=== PATIENT | female | born 1935 | race African-American/Black ===

== ENCOUNTER 2021-07-28 19:14 | Inpatient (IN) | payer OTHER, MEDICAID ==
[~2021-07-28] VITALS: Ht 157.5 cm; Wt 56.2 kg
[2021-07-28] MEDS ORDERED: IV RINGERS,LACTATED 1000ML 1,000 ML IV ONE ×2 (19:30→20:00)
[2021-07-28] MEDS ORDERED: ACETAMINOPHEN 650 MG SUPP.RECT. PR ONE (19:30)
--- NOTE | 2021-07-28 19:40 | ED.ADGEN ---
General Adult EDM: Chief Complaint: General Complaint HPI: HPI: Patient is a 85 year old female brought in by EMS for infected chronic wound, hypertension, fevers, and altered mental status. Per EMS she was found about 1400 fever and worsening mental status. Patient is a history of Alzheimer's per the report she is normally more alert. Is also purulent drainage noted from chronic wound on her back Review of Systems: Review of Systems: All other systems within normal limits except for as noted in the HPI Current Medications: Current Medications Medications (Trade) Dose Ordered Sig/Leandra Start Time Stop Time Status Last Admin Dose Admin Acetaminophen (Tylenol Supp) 650 mg 1X ONCE 07/28/21 19:30 07/28/21 20:11 DC 07/28/21 19:40 650 MG Acetaminophen (Tylenol) 650 mg PRN Q6HRS PRN 07/28/21 22:45 Dextrose (Dextrose 50%-Water Syringe) 12.5 gm PRN Q15MIN PRN 07/28/21 23:00 Dextrose (Iv Dextrose 5%) 250 ml PRN Q15MIN PRN 07/28/21 23:00 UNV Diphenhydramine HCl (Benadryl) 25 mg 1X ONCE 07/28/21 20:30 07/28/21 20:31 DC Fentanyl Citrate (Fentanyl 2ml Vial) 50 mcg PRN Q1HR PRN 07/28/21 21:45 07/29/21 21:44 Haloperidol Lactate (Haldol Inj) 5 mg 1X ONCE 07/28/21 20:30 07/28/21 20:31 DC Heparin Sodium (Porcine) (Heparin Sodium) 5,000 unit Q8HRS 07/29/21 06:00 Insulin Glargine (Lantus Syringe) 10 unit QHS 07/28/21 21:00 Insulin Human Lispro (HumaLOG) 0-9 UNITS TIDWMEALS 07/29/21 08:00 Magnesium Sulfate/ Dextrose 100 ml @ 100 mls/hr 1X ONCE 07/28/21 23:30 07/29/21 00:29 Olanzapine (ZyPREXA ZYDIS) 5 mg PRN BID PRN 07/28/21 22:45 Ondansetron HCl (Zofran) 4 mg PRN Q4HRS PRN 07/28/21 22:45 Piperacillin Sod/ Tazobactam Sod (Zosyn Per Pharmacy) 1 each PRN DAILY PRN 07/28/21 22:45 Piperacillin Sod/ Tazobactam Sod 2.25 gm/Sodium Chloride 50 ml @ 100 mls/hr Q6HRS 07/29/21 00:00 Piperacillin Sod/ Tazobactam Sod 3.375 gm/Sodium Chloride 50 ml @ 100 mls/hr 1X ONCE 07/28/21 20:00 07/28/21 20:29 DC 07/28/21 20:39 100 MLS/HR Ringer's Solution 1,000 ml @ 100 mls/hr 1X ONCE 07/28/21 20:00 07/29/21 05:59 07/28/21 20:10 100 MLS/HR Sodium Chloride 1,000 ml @ 100 mls/hr Q10H 07/28/21 22:00 07/29/21 21:59 Vancomycin HCl (Vanco Per Pharmacy) 1 each PRN DAILY PRN 07/28/21 22:45 Vancomycin HCl 1.5 gm/Sodium Chloride 500 ml @ 250 mls/hr 1X ONCE 07/28/21 23:45 07/29/21 01:44 Allergies: Allergies: Allergies Coded Allergies Type Severity Reaction Last Updated Verified No Known Drug Allergies 07/28/21 No Physical Exam: PE: Constitutional: Well developed, well nourished, ill-appearing HENT: Normocephalic, atraumatic, bilateral external ears normal, nose normal. [] Eyes: PERRLA, conjunctiva normal, no discharge. [] Neck: No rigidity, supple, no stridor. [] Cardiovascular: Regular rate and rhythm, brisk cap refill [] Lungs & Thorax: Non labored symmetric respirations, no tachypnea or respiratory distress [] Abdomen: Soft, nondistended. Skin: Warm, dry, no erythema, no rash. Open wound on back [] Back: Unremarkable Extremities: No deformities, range of motion grossly intact, no lower extremity edema [] Neurologic: Alert and oriented X 3, no focal deficits noted. [] Psychologic: Affect normal, judgement normal, mood normal. [] Current Patient Data: Labs: Laboratory Tests Test 07/28/21 19:30 07/28/21 22:38 07/28/21 22:52 White Blood Count 9.7 x10^3/uL (4.0-11.0) Red Blood Count 3.01 x10^6/uL (3.50-5.40) L Hemoglobin 7.3 g/dL (12.0-15.5) L Hematocrit 22.6 % (36.0-47.0) L Mean Corpuscular Volume 75 fL (79-100) L Mean Corpuscular Hemoglobin 24 pg (25-35) L Mean Corpuscular Hemoglobin Concent 32 g/dL (31-37) Red Cell Distribution Width 21.7 % (11.5-14.5) H Platelet Count 408 x10^3/uL (140-400) H Neutrophils (%) (Auto) 93 % (31-73) H Lymphocytes (%) (Auto) 3 % (24-48) L Monocytes (%) (Auto) 3 % (0-9) Eosinophils (%) (Auto) 0 % (0-3) Basophils (%) (Auto) 1 % (0-3) Neutrophils # (Auto) 9.0 x10^3/uL (1.8-7.7) H Lymphocytes # (Auto) 0.3 x10^3/uL (1.0-4.8) L Monocytes # (Auto) 0.3 x10^3/uL (0.0-1.1) Eosinophils # (Auto) 0.0 x10^3/uL (0.0-0.7) Basophils # (Auto) 0.1 x10^3/uL (0.0-0.2) Segmented Neutrophils % 95 % (35-66) H Lymphocytes % 2 % (24-48) L Monocytes % 2 % (0-10) Basophils % 1 % (0-3) Platelet Estimate Increased (ADEQUATE) Hypochromasia Mod Anisocytosis Mod Schistocytes Occ Prothrombin Time 23.0 SEC (11.7-14.0) H Prothrombin Time INR 2.1 (0.8-1.1) H Urine Color Yellow Urine Clarity Cloudy Urine pH 5.0 (<5.0-8.0) Urine Specific [place] 1.015 (1.000-1.030) Urine Protein Negative mg/dL (NEG-TRACE) Urine Glucose (UA) Negative mg/dL (NEG) Urine Ketones (Stick) Negative mg/dL (NEG) Urine Blood Negative (NEG) Urine Nitrite Negative (NEG) Urine Bilirubin Negative (NEG) Urine Urobilinogen Dipstick 1.0 mg/dL (0.2 mg/dL) Urine Leukocyte Esterase Moderate (NEG) Urine RBC 0 /HPF (0-2) Urine WBC 5-10 /HPF (0-4) Urine Squamous Epithelial Cells Mod /LPF Urine Amorphous Sediment Present /HPF Urine Bacteria Few /HPF (0-FEW) Urine Hyaline Casts Moderate /HPF Urine Granular Casts Few /HPF Urine Mucus Marked /LPF Sodium Level 139 mmol/L (136-145) Potassium Level 3.7 mmol/L (3.5-5.1) Chloride Level 105 mmol/L (98-107) Carbon Dioxide Level 21 mmol/L (21-32) Anion Gap 13 (6-14) Blood Urea Nitrogen 24 mg/dL (7-20) H Creatinine 1.4 mg/dL (0.6-1.0) H Estimated GFR (Cockcroft-Gault) 43.2 BUN/Creatinine Ratio 17 (6-20) Glucose Level 171 mg/dL (70-99) H Lactic Acid Level 3.3 mmol/L (0.4-2.0) H 1.6 mmol/L (0.4-2.0) Calcium Level 8.7 mg/dL (8.5-10.1) Phosphorus Level 2.4 mg/dL (2.6-4.7) L Magnesium Level 1.7 mg/dL (1.8-2.4) L Total Bilirubin 0.7 mg/dL (0.2-1.0) Aspartate Amino Transferase (AST) 33 U/L (15-37) Alanine Aminotransferase (ALT) 18 U/L (14-59) Alkaline Phosphatase 64 U/L (46-116) C-Reactive Protein, Quantitative 115.5 mg/L (0-3.3) H OO-Smr-R-Type Natriuretic Peptide 3605 pg/mL (0-449) H Total Protein 6.0 g/dL (6.4-8.2) L Albumin 1.6 g/dL (3.4-5.0) L Albumin/Globulin Ratio 0.4 (1.0-1.7) L Lipase 55 U/L (73-393) L POC Venous pH 7.42 (7.32-7.42) POC Venous pCO2 39 mmHg (41-51) L POC Venous pO2 23 mmHg (20-40) Venous Blood HCO3 25 mmol/L (24-28) POC Venous O2 Saturation (Lewis) 43 % POC FiO2 21.0 Laboratory Tests 07/28/21 19:30 Laboratory Tests 07/28/21 19:30 EKG: EKG: [] Heart Score: C/O Chest Pain: No HEART Score for Chest Pain: HEART Score for Chest Pain Response (Comments) Value History Slighlty/Non-Suspicious 0 ECG Nonspecific Repolarizatio 1 Age > 65 2 Risk Factors 1 or 2 Risk Factors 1 Troponin < Normal Limit 0 Total 4 Risk Factors: Risk Factors: DM, Current or recent (<one month) smoker, HTN, HLP, family history of CAD, obesity. Risk Scores: Score 0 - 3: 2.5% MACE over next 6 weeks - Discharge Home Score 4 - 6: 20.3% MACE over next 6 weeks - Admit for Clinical Observation Score 7 - 10: 72.7% MACE over next 6 weeks - Early Invasive Strategies Radiology/Procedures: Radiology/Procedures: [facility] [address] [place] [address] IMAGING REPORT Signed PATIENT: MIRELLA TURNERCOUNT: [id number] : 1935 LOCATION: ER AGE: 85 SEX: F EXAM STATUS: REG ER ORD. PHYSICIAN: KACI MCKEE MD REASON: wound on back, possible osteo PROCEDURE: CT CHEST ABDOMEN PELVIS WO CT CHEST_ABDOMEN_ AND PELVIS WITHOUT CONTRAST History: Wound on back. Possible osteomyelitis. Comparison: None. Technique: Noncontrast CT of the chest, abdomen and pelvis with Findings: There is a large, heterogeneous right thyroid lobe with mass effect on the trachea and esophagus. The ascending aorta measures 4.4 cm diameter at the level of the right pulmonary artery. There is heavy aortic calcification. Cardiomegaly with heavy coronary artery calcification. No mediastinal adenopathy identified. No airspace consolidation, pleural effusion or pneumothorax. Degenerative changes of bilateral shoulders. 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 Decreased osseous mineralization in the spine. Multilevel degenerative changes. Multilevel anterior and lateral fusion of the thoracic vertebral bodies. S uggestion of fracture lucency extending to the ninth vertebral body, without fracture identified in the posterior elements. The liver is unremarkable. The gallbladder is decompressed. The pancreas, spleen and adrenal glands are unremarkable. Right upper pole renal cyst. The left kidney is either surgically absent or severely atrophic. No residual surgical clips are identified. Stomach is decompressed. No evidence of small bowel obstruction. There is a loop of transverse colon extending into a large broad-based periumbilical hernia. No evidence of obstruction. Large, 6.3 cm rectal stool ball with mild rectal wall thickening. The bladder is decompressed by Up catheter. Uterus demonstrates mild thickening of the endometrium with dense material measuring approximately 8 mm diameter. Heavy atherosclerotic calcification of the aorta and iliac arteries. Diffusely decreased osseous mineralization. Extensive degenerative changes in the lumbar spine with disc height loss, ankylosis and facet hypertrophy throughout. Postsurgical changes from L4-L5 posterior fixation. No evidence of screw loosening. Laminectomy at these levels. There is a skin defect overlying the sacrum extending posteriorly to the rectum with a tract containing air and fluid. The cavity measures approximately 1.5 x 0.9 cm diameter at the level of the coccyx by approximately 9 cm craniocaudal extensive adjacent inflammatory fat stranding. The sacrum and coccyx are extensively demineralized, however no focal erosive changes identified. There is only approximately 2-3 mm of tissue plane the cavity from the coccyx. Impression: 1. Concern for toxic fracture of the thoracic spine at the level of T9 vertebral body. Correlate for pain at this level. Thoracic MRI could provide evidence of acutely if edema is present. 2. Decubitus ulcer overlying the sacrum and coccyx tracking to the posterior perirectal area. No direct evidence of osteomyelitis is identified in the sacrum and coccyx, however is only a few millimeters of tissue plane between the decubitus ulcer collection and the outer cortex of the coccyx. 3. Large rectal stool ball measuring 6 cm diameter with mild rectal wall thickening. Correlate for stercoral colitis. 4. Large heterogeneous right thyroid lobe with mass effect on the trachea and esophagus. Recommend thyroid ultrasound for further evaluation. ------ Exposure: One or more of the following individualized dose reduction techniques were utilized for this examination: 1. Automated exposure control 2. Adjustment of the mA and/or kV according to patient size 3. Use of iterative reconstruction technique. Electronically signed by: Eric Hughes MD (07/28/2021 10:11 PM) [facility] DICTATED and SIGNED BY: ERIC HUGHES MD DATE: 07/28/21 [id number] 0 [] Course & Med Decision Making: Course & Med Decision Making Pertinent Labs and Imaging studies reviewed. (See chart for details) [] Dragon Disclaimer: Dragon Disclaimer: This electronic medical record was generated, in whole or in part, using a voice recognition dictation system. Departure Departure Impression: Primary Impression: Septic shock Additional Impression: Open wound of sacroiliac region Disposition: ADMITTED INPATIENT Admitting Physician: WALDEMAR Condition: GUARDED Problem Qualifiers KACI MCKEE MD Jul 28, 2021 19:40
[2021-07-28 19:42] LABS: BASO # 0.1 x10^3/uL (0.0-0.2); BASO % 1 % (0-3); EOS % 0 % (0-3); HEMATOCRIT 22.6 % (36.0-47.0); HEMOGLOBIN 7.3 g/dL (12.0-15.5); LYMPH # 0.3 x10^3/uL (1.0-4.8); LYMPH % 3 % (24-48); MEAN CORPUSCULAR HEMOGLOBIN 24 pg (25-35); MEAN CORPUSCULAR HGB CONC 32 g/dL (31-37); MEAN CORPUSCULAR VOLUME 75 fL (79-100); MONO # 0.3 x10^3/uL (0.0-1.1); MONO % 3 % (0-9); NEUT % 93 % (31-73); PLATELET COUNT 408 x10^3/uL (140-400); RED BLOOD COUNT 3.01 x10^6/uL (3.50-5.40); RED CELL DISTRIBUTION WIDTH 21.7 % (11.5-14.5); WHITE BLOOD COUNT 9.7 x10^3/uL (4.0-11.0)
[2021-07-28 19:45] LABS: BILIRUBIN,URINE NEGATIVE (NEG); CLARITY,URINE CLOUDY; COLOR,URINE YELLOW; NITRITE,URINE NEGATIVE (NEG); PROTEIN,URINE NEGATIVE (NEG-TRACE)
[2021-07-28 19:53] LABS: AMORPHOUS SEDIMENT,UR PRESENT /HPF; BACTERIA,URINE FEW /HPF (0-FEW); GRANULAR CASTS,URINE FEW /HPF; HYALINE CASTS, URINE MODERATE /HPF; RBC,URINE 0 /HPF (0-2)
[2021-07-28] MEDS ORDERED: PIPERACILLIN/TAZOBACTAM 3.375 GM in IV NORMAL SALINE 50ML 50 ML IV ONE (20:00)
[2021-07-28 20:04] LABS: CALCIUM 8.7 mg/dL (8.5-10.1); CREATININE 1.4 mg/dL (0.6-1.0)
[2021-07-28 20:05] LABS: POTASSIUM 3.7 mmol/L (3.5-5.1)
[2021-07-28 20:06] LABS: GFR 43.2
[2021-07-28 20:11] LABS: ALBUMIN 1.6 g/dL (3.4-5.0); ALBUMIN/GLOBULIN RATIO 0.4 (1.0-1.7); C-REACTIVE PROTEIN 115.5 mg/L (0-3.3); MAGNESIUM 1.7 mg/dL (1.8-2.4); PHOSPHORUS 2.4 mg/dL (2.6-4.7); TOTAL BILIRUBIN 0.7 mg/dL (0.2-1.0)
[2021-07-28 20:13] LABS: % BASOS 1 % (0-3); % LYMPHS 2 % (24-48); % MONOS 2 % (0-10); % SEGS 95 % (35-66)
[2021-07-28 20:14] LABS: ANISOCYTOSIS MOD; HYPOCHROMIA MOD; PLT ESTIMATE INCREASED (ADEQUATE); SCHISTOCYTES OCC
[2021-07-28] MEDS ORDERED: HALOPERIDOL LACTATE 5 MG/ML VIAL. IVP ONE (20:30)
[2021-07-28] MEDS ORDERED: diphenhydrAMINE 50 MG/ML VIAL IVP ONE (20:30)
--- NOTE | 2021-07-28 21:43 | PDOC1 ---
History and Physical Date of Admission Date of Admission DATE: 07/28/21 TIME: 21:43 Identification/Chief Complaint Chief Complaint Fevers altered mental status Source Source: Caregiver, Chart review History of Present Illness History of Present Illness Ms Martinez is an 85 year old female w/ PMHx alzheimer dementia, DM2, iron deficiency anemia, prior pulmonary embolism on eliquis who is brought into ED by EMS for fevers and altered mental status from her SNF. Patient is not verbally responsive, no history is obtained from her, it is from medical records. He does have a bowel movement during examination. Right elbow and gluteal area with open wound. Initially was not very responsive vitals low blood pressure responsive to fluid bolus started on empiric vancomycin and Zosyn by ED after cultures obtained. WBC 9.7, Hb 7.3, platelets 408, INR 2.1, NA 139, K3.7, BUN 24, CR 1.4, glucose 171, lactic acid 3.3, calcium 8.7, phosphorus 2.4, magnesium 1.7, bilirubin 0.7, AST 33, ALT 18, alkaline phosphatase 64, CRP 115.5, NT proBNP 3605, albumin 1.6, lipase 55, urinalysis with moderate leuk esterase CT chest/abdomen/pelvis with T9 fracture, decubitus ulcer over sacram and coccyx, large stool burden with possible stercoral colitis and large right thyro id lobe with mass effect. Admitted for further care. Past Medical History Cardiovascular: HTN Pulmonary: Pulmonary embolus CENTRAL NERVOUS SYSTEM: Dementia Endocrine: Diabetes Past Surgical History Past Surgical History: No pertinent history Family History Family History reviewed Family History: Family History Unknown Social History Smoke: No ALCOHOL: none Drugs: None Current Medications Current Medications Current Medications Acetaminophen (Tylenol Supp) 650 mg 1X ONCE [place] Last administered on 07/28/21at 19:40; Start 07/28/21 at 19:30; Stop 07/28/21 at 20:11; Status DC Ringer's Solution 1,000 ml @ 1,000 mls/hr 1X ONCE IV Last administered on 07/28/21at 19:25; Start 07/28/21 at 19:30; Stop 07/28/21 at 20:29; Status DC Ringer's Solution 1,000 ml @ 100 mls/hr 1X ONCE IV Last administered on 07/28/21at 20:10; Start 07/28/21 at 20:00; Stop 07/29/21 at 05:59 Vancomycin HCl 1.5 gm/Sodium Chloride 500 ml @ 250 mls/hr 1X ONCE IV ; Start 07/28/21 at 20:00; Stop 07/28/21 at 21:59; Status UNV Piperacillin Sod/ Tazobactam Sod 3.375 gm/Sodium Chloride 50 ml @ 100 mls/hr 1X ONCE IV Last administered on 07/28/21at 20:39; Start 07/28/21 at 20:00; Stop 07/28/21 at 20:29; Status DC Haloperidol Lactate (Haldol Inj) 5 mg 1X ONCE IVP ; Start 07/28/21 at 20:30; Stop 07/28/21 at 20:31; Status DC Diphenhydramine HCl (Benadryl) 25 mg 1X ONCE IVP ; Start 07/28/21 at 20:30; Stop 07/28/21 at 20:31; Status DC Allergies Allergies: Coded Allergies: No Known Drug Allergies (Unverified , 07/28/21) ROS Review of System Unable to obtain, not verbally responsive Physical Exam General: Cooperative, mild distress HEENT: Atraumatic, PERRLA, EOMI, Mucous membr. moist/pink Lungs: Clear to auscultation, Normal air movement Heart: S1S2, RRR, no thrills, no rubs, no gallops, no murmurs Abdomen: Normal bowel sounds, Soft, No tenderness, No hepatosplenomegaly, No masses Rectal Exam: other (Large stool in vault) Skin: Other (right elbow, bilateral heels and gluteal ulcers) Neuro: Reflexes 2+ Psych/Mental Status: Other (Not verbally responsive) Labs Labs Laboratory Tests Test 07/28/21 19:30 White Blood Count 9.7 x10^3/uL (4.0-11.0) Red Blood Count 3.01 x10^6/uL (3.50-5.40) Hemoglobin 7.3 g/dL (12.0-15.5) Hematocrit 22.6 % (36.0-47.0) Mean Corpuscular Volume 75 fL (79-100) Mean Corpuscular Hemoglobin 24 pg (25-35) Mean Corpuscular Hemoglobin Concent 32 g/dL (31-37) Red Cell Distribution Width 21.7 % (11.5-14.5) Platelet Count 408 x10^3/uL (140-400) Neutrophils (%) (Auto) 93 % (31-73) Lymphocytes (%) (Auto) 3 % (24-48) Monocytes (%) (Auto) 3 % (0-9) Eosinophils (%) (Auto) 0 % (0-3) Basophils (%) (Auto) 1 % (0-3) Neutrophils # (Auto) 9.0 x10^3/uL (1.8-7.7) Lymphocytes # (Auto) 0.3 x10^3/uL (1.0-4.8) Monocytes # (Auto) 0.3 x10^3/uL (0.0-1.1) Eosinophils # (Auto) 0.0 x10^3/uL (0.0-0.7) Basophils # (Auto) 0.1 x10^3/uL (0.0-0.2) Segmented Neutrophils % 95 % (35-66) Lymphocytes % 2 % (24-48) Monocytes % 2 % (0-10) Basophils % 1 % (0-3) Platelet Estimate Increased (ADEQUATE) Hypochromasia Mod Anisocytosis Mod Schistocytes Occ Prothrombin Time 23.0 SEC (11.7-14.0) Prothromb Time International Ratio 2.1 (0.8-1.1) Urine Color Yellow Urine Clarity Cloudy Urine pH 5.0 (<5.0-8.0) Urine Specific [place] 1.015 (1.000-1.030) Urine Protein Negative mg/dL (NEG-TRACE) Urine Glucose (UA) Negative mg/dL (NEG) Urine Ketones (Stick) Negative mg/dL (NEG) Urine Blood Negative (NEG) Urine Nitrite Negative (NEG) Urine Bilirubin Negative (NEG) Urine Urobilinogen Dipstick 1.0 mg/dL (0.2 mg/dL) Urine Leukocyte Esterase Moderate (NEG) Urine RBC 0 /HPF (0-2) Urine WBC 5-10 /HPF (0-4) Urine Squamous Epithelial Cells Mod /LPF Urine Amorphous Sediment Present /HPF Urine Bacteria Few /HPF (0-FEW) Urine Hyaline Casts Moderate /HPF Urine Granular Casts Few /HPF Urine Mucus Marked /LPF Sodium Level 139 mmol/L (136-145) Potassium Level 3.7 mmol/L (3.5-5.1) Chloride Level 105 mmol/L (98-107) Carbon Dioxide Level 21 mmol/L (21-32) Anion Gap 13 (6-14) Blood Urea Nitrogen 24 mg/dL (7-20) Creatinine 1.4 mg/dL (0.6-1.0) Estimated GFR (Cockcroft-Gault) 43.2 BUN/Creatinine Ratio 17 (6-20) Glucose Level 171 mg/dL (70-99) Lactic Acid Level 3.3 mmol/L (0.4-2.0) Calcium Level 8.7 mg/dL (8.5-10.1) Phosphorus Level 2.4 mg/dL (2.6-4.7) Magnesium Level 1.7 mg/dL (1.8-2.4) Total Bilirubin 0.7 mg/dL (0.2-1.0) Aspartate Amino Transf (AST/SGOT) 33 U/L (15-37) Alanine Aminotransferase (ALT/SGPT) 18 U/L (14-59) Alkaline Phosphatase 64 U/L (46-116) C-Reactive Protein, Quantitative 115.5 mg/L (0-3.3) MC-Vvu-J-Type Natriuretic Peptide 3605 pg/mL (0-449) Total Protein 6.0 g/dL (6.4-8.2) Albumin 1.6 g/dL (3.4-5.0) Albumin/Globulin Ratio 0.4 (1.0-1.7) Lipase 55 U/L (73-393) Laboratory Tests Test 07/28/21 19:30 White Blood Count 9.7 x10^3/uL (4.0-11.0) Red Blood Count 3.01 x10^6/uL (3.50-5.40) Hemoglobin 7.3 g/dL (12.0-15.5) Hematocrit 22.6 % (36.0-47.0) Mean Corpuscular Volume 75 fL (79-100) Mean Corpuscular Hemoglobin 24 pg (25-35) Mean Corpuscular Hemoglobin Concent 32 g/dL (31-37) Red Cell Distribution Width 21.7 % (11.5-14.5) Platelet Count 408 x10^3/uL (140-400) Neutrophils (%) (Auto) 93 % (31-73) Lymphocytes (%) (Auto) 3 % (24-48) Monocytes (%) (Auto) 3 % (0-9) Eosinophils (%) (Auto) 0 % (0-3) Basophils (%) (Auto) 1 % (0-3) Neutrophils # (Auto) 9.0 x10^3/uL (1.8-7.7) Lymphocytes # (Auto) 0.3 x10^3/uL (1.0-4.8) Monocytes # (Auto) 0.3 x10^3/uL (0.0-1.1) Eosinophils # (Auto) 0.0 x10^3/uL (0.0-0.7) Basophils # (Auto) 0.1 x10^3/uL (0.0-0.2) Segmented Neutrophils % 95 % (35-66) Lymphocytes % 2 % (24-48) Monocytes % 2 % (0-10) Basophils % 1 % (0-3) Platelet Estimate Increased (ADEQUATE) Hypochromasia Mod Anisocytosis Mod Schistocytes Occ Prothrombin Time 23.0 SEC (11.7-14.0) Prothromb Time International Ratio 2.1 (0.8-1.1) Urine Color Yellow Urine Clarity Cloudy Urine pH 5.0 (<5.0-8.0) Urine Specific [place] 1.015 (1.000-1.030) Urine Protein Negative mg/dL (NEG-TRACE) Urine Glucose (UA) Negative mg/dL (NEG) Urine Ketones (Stick) Negative mg/dL (NEG) Urine Blood Negative (NEG) Urine Nitrite Negative (NEG) Urine Bilirubin Negative (NEG) Urine Urobilinogen Dipstick 1.0 mg/dL (0.2 mg/dL) Urine Leukocyte Esterase Moderate (NEG) Urine RBC 0 /HPF (0-2) Urine WBC 5-10 /HPF (0-4) Urine Squamous Epithelial Cells Mod /LPF Urine Amorphous Sediment Present /HPF Urine Bacteria Few /HPF (0-FEW) Urine Hyaline Casts Moderate /HPF Urine Granular Casts Few /HPF Urine Mucus Marked /LPF Sodium Level 139 mmol/L (136-145) Potassium Level 3.7 mmol/L (3.5-5.1) Chloride Level 105 mmol/L (98-107) Carbon Dioxide Level 21 mmol/L (21-32) Anion Gap 13 (6-14) Blood Urea Nitrogen 24 mg/dL (7-20) Creatinine 1.4 mg/dL (0.6-1.0) Estimated GFR (Cockcroft-Gault) 43.2 BUN/Creatinine Ratio 17 (6-20) Glucose Level 171 mg/dL (70-99) Lactic Acid Level 3.3 mmol/L (0.4-2.0) Calcium Level 8.7 mg/dL (8.5-10.1) Phosphorus Level 2.4 mg/dL (2.6-4.7) Magnesium Level 1.7 mg/dL (1.8-2.4) Total Bilirubin 0.7 mg/dL (0.2-1.0) Aspartate Amino Transf (AST/SGOT) 33 U/L (15-37) Alanine Aminotransferase (ALT/SGPT) 18 U/L (14-59) Alkaline Phosphatase 64 U/L (46-116) C-Reactive Protein, Quantitative 115.5 mg/L (0-3.3) UW-Zsz-[id number]-Type Natriuretic Peptide 3605 pg/mL (0-449) Total Protein 6.0 g/dL (6.4-8.2) Albumin 1.6 g/dL (3.4-5.0) Albumin/Globulin Ratio 0.4 (1.0-1.7) Lipase 55 U/L (73-393) Images Images CT CHEST ABDOMEN PELVIS WO CT CHEST_ABDOMEN_ AND PELVIS WITHOUT CONTRAST History: Wound on back. Possible osteomyelitis. Comparison: None. Technique: Noncontrast CT of the chest, abdomen and pelvis with Findings: There is a large, heterogeneous right thyroid lobe with mass effect on the trachea and esophagus. The ascending aorta measures 4.4 cm diameter at the level of the right pulmonary artery. There is heavy aortic calcification. Cardiomegaly with heavy coronary artery calcification. No mediastinal adenopathy identified. No airspace consolidation, pleural effusion or pneumothorax. Degenerative changes of bilateral shoulders. 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 Decreased osseous mineralization in the spine. Multilevel degenerative changes. Multilevel anterior and lateral fusion of the thoracic vertebral bodies. Suggestion of fracture lucency extending to the ninth vertebral body, without fracture identified in the posterior elements. The liver is unremarkable. The gallbladder is decompressed. The pancreas, spleen and adrenal glands are unremarkable. Right upper pole renal cyst. The left kidney is either surgically absent or severely atrophic. No residual surgical clips are identified. Stomach is decompressed. No evidence of small bowel obstruction. There is a loop of transverse colon extending into a large broad-based periumbilical hernia. No evidence of obstruction. Large, 6.3 cm rectal stool ball with mild rectal wall thickening. The bladder is decompressed by Up catheter. Uterus demonstrates mild thickening of the endometrium with dense material measuring approximately 8 mm diameter. Heavy atherosclerotic calcification of the aorta and iliac arteries. Diffusely decreased osseous mineralization. Extensive degenerative changes in the lumbar spine with disc height loss, ankylosis and facet hypertrophy throughout. Postsurgical changes from L4-L5 posterior fixation. No evidence of screw loosening. Laminectomy at these levels. There is a skin defect overlying the sacrum extending posteriorly to the rectum with a tract containing air and fluid. The cavity measures approximately 1.5 x 0.9 cm diameter at the level of the coccyx by approximately 9 cm craniocaudal extensive adjacent inflammatory fat stranding. The sacrum and coccyx are extensively demineralized, however no focal erosive changes identified. There is only approximately 2-3 mm of tissue plane the cavity from the coccyx. Impression: 1. Concern for toxic fracture of the thoracic spine at the level of T9 vertebral body. Correlate for pain at this level. Thoracic MRI could provide evidence of acutely if edema is present. 2. Decubitus ulcer overlying the sacrum and coccyx tracking to the posterior perirectal area. No direct evidence of osteomyelitis is identified in the sacrum and coccyx, however is only a few millimeters of tissue plane between the decubitus ulcer collection and the outer cortex of the coccyx. 3. Large rectal stool ball measuring 6 cm diameter with mild rectal wall thickening. Correlate for stercoral colitis. 4. Large heterogeneous right thyroid lobe with mass effect on the trachea and esophagus. Recommend thyroid ultrasound for further evaluation. VTE Prophylaxis Ordered VTE Prophylaxis Devices: No VTE Pharmacological Prophylaxi: Yes Assessment/Plan Assessment/Plan Acute encephalopathy - likely metabolic due to hypotension, shock from sepsis. Will monitor BP, fluids, antibiotics Sepsis - likely from UTI and gluteal ulcer. Empiric antibiotics with vancomycin and zosyn Alzheimer dementia - on aricept, will hold for confusion DM2 - lantus 10u qhs + sliding scale Iron deficiency anemia - on replacement therapy Prior pulmonary embolism - per SNF records - on eliquis CHELSY vs CKD - CR 1.4, will monitor T9 vertebral body fracture - will have PMR assessment Constipation - with Large rectal stool ball measuring 6 cm diameter with mild rectal wall thickening. digitally examined and partially disimpacted Heterogeneous right thyroid lobe - mass effect on the trachea and esophagus. Will obtain US Sacral decubitus ulcer - having wound care at SNF, will have wound care to see, is unstageable, has stool during examination Right elbow ulcer - superficial, local wound care Bilateral heel ulcers - superficial, have wound care to see FEN - ADA diet PPX - heparin for eliquis until mental status improves for swallowing evaluation FULL CODE Dispo - inpatient for above Justifications for Admission Other Justification ADRIANNA DORANTES MD Jul 28, 2021 21:43
[2021-07-28] MEDS ORDERED: ONDANSETRON PF 4 MG/2 ML VIAL. IVP PRN ×2 (21:45→22:45)
[2021-07-28] MEDS ORDERED: fentaNYL PF VIAL 100 MCG/2 ML VIAL IVP PRN (21:45)
[2021-07-28] MEDS ORDERED: ACETAMINOPHEN 325 MG TABLET. PO PRN ×2 (21:45→22:45)
--- NOTE | 2021-07-28 22:14 | RAD ---
CT CHEST_ABDOMEN_ AND PELVIS WITHOUT CONTRAST History: Wound on back. Possible osteomyelitis. Comparison: None. Technique: Noncontrast CT of the chest, abdomen and pelvis with Findings: There is a large, heterogeneous right thyroid lobe with mass effect on the trachea and esophagus. The ascending aorta measures 4.4 cm diameter at the level of the right pulmonary artery. There is heavy aortic calcification. Cardiomegaly with heavy coronary artery calcification. No mediastinal adenopath y identified. No airspace consolidation, pleural effusion or pneumothorax. Degenerative changes of bi lateral shoulders. 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 Decreased osseous mineralization in the spine. Multi level degenerative changes. Multilevel anterior and lateral fusion of the thoracic vertebral bodies. Suggestion of fracture lucency extending to the ninth vertebral body, without fracture identified in the posterior elements. The liver is unremarkable. The gallbladder is decompressed. The pancreas, spleen and adrenal glands a re unremarkable. Right upper pole renal cyst. The left kidney is either surgically absent or severely atrophic. No residual surgical clips are identified. Stomach is decompressed. No evidence of small bowel obstruction. There is a loop of transverse colon extending into a large broad-based periumbilical hernia. No evidence of obstruction. Large, 6.3 cm re ctal stool ball with mild rectal wall thickening. The bladder is decompressed by Up catheter. Uterus demonstrates mild thickening of the endometrium with dense material measuring approximately 8 mm diameter. Heavy atherosclerotic calcification of th e aorta and iliac arteries. Diffusely decreased osseous mineralization. Extensive degenerative changes in the lumbar spine with d isc height loss, ankylosis and facet hypertrophy throughout. Postsurgical changes from L4-L5 posterio r fixation. No evidence of screw loosening. Laminectomy at these levels. There is a skin defect overlying the sacrum extending posteriorly to the rectum with a tract containi ng air and fluid. The cavity measures approximately 1.5 x 0.9 cm diameter at the level of the coccyx by approximately 9 cm craniocaudal extensive adjacent inflammatory fat stranding. The sacrum and cocc yx are extensively demineralized, however no focal erosive changes identified. There is only approxim ately 2-3 mm of tissue plane the cavity from the coccyx. Impression: 1. Concern for toxic fracture of the thoracic spine at the level of T9 vertebral body. Correlate for pain at this level. Thoracic MRI could provide evidence of acutely if edema is present. 2. Decubitus ulcer overlying the sacrum and coccyx tracking to the posterior perirectal area. No dir ect evidence of osteomyelitis is identified in the sacrum and coccyx, however is only a few millimete rs of tissue plane between the decubitus ulcer collection and the outer cortex of the coccyx. 3. Large rectal stool ball measuring 6 cm diameter with mild rectal wall thickening. Correlate for s tercoral colitis. 4. Large heterogeneous right thyroid lobe with mass effect on the trachea and esophagus. Recommend t hyroid ultrasound for further evaluation. ------ Exposure: One or more of the following individualized dose reduction techniques were utilized for thi s examination: 1. Automated exposure control 2. Adjustment of the mA and/or kV according to patient size 3. Use of iterative reconstruction technique. Electronically signed by: Eric Gill MD (07/28/2021 10:11 PM) [facility]
[2021-07-28] MEDS ORDERED: PIP/TAZO PER PHARMACY MC PRN (22:45)
[2021-07-28 22:58] LABS: ISTAT BE VENOUS 1 mmol/L (0-3); ISTAT HCO3 VEN 25 mmol/L (24-28); ISTAT PCO2 VEN 39 mmHg (41-51); ISTAT PH VEN 7.42 (7.32-7.42); ISTAT PO2 VEN 23 mmHg (20-40); ISTAT SAT O2 VEN 43 %; ISTAT TCO2 VEN 26 mmol/L (21-32)
[2021-07-28] MEDS ORDERED: IV DEXTROSE 5% 250 ML BAG. IV PRN (23:00)
[2021-07-28] MEDS ORDERED: DEXTROSE 50% 25 GM / 50ML DISP.SYRIN. IV PRN (23:00)
[2021-07-28] MEDS ORDERED: MAGNESIUM SULFATE 1GM 100 ML IV ONE (23:30)
[2021-07-28] MEDS ORDERED: VANCOMYCIN 1.5 GM in IV NORMAL SALINE 500ML BAG 500 ML IV ONE (23:45)
[2021-07-29] VITALS (17 sets, daily range): BP systolic 94–126; BP diastolic 37–72
[2021-07-29] MEDS: INSULIN GLARGINE SYRINGE. SQ SCH ×2 (00:06→20:33)
[2021-07-29] MEDS: VANCOMYCIN PER PHARMACY MC PRN (03:51)
--- NOTE | 2021-07-29 03:53 | NUR ---
Pharmacy Vancomycin Dosing Note S:Consulted to monitor and dose vancomycin started 07/28/21. O:MIRELLA TURNER is a 85 year old F with Sepsis . Height: 5 feet, 2 inches Weight: 60.138197 kg [place] Body Weight: 50.10 Adjusted Body Weight: 54.18 Dosing Weight: Actual Other Antibiotics: ZOSYN 2.25 GM Q6H LABS: Last BUN: 24 Last Creatinine: 1.4 Creatinine Clearance: 25 mL/min Last WBC: 9.7 Last Procalcitonin: Tmax (past 24 hours): Microbiology: I/O: Drug Levels: Last level: on at Last dose given 07/28/21 at 2350 Vancomycin Dosing: Loading Dose: 1500 mg x1 Dosing Weight: Actual Target Trough: 15-20 A: Based on: WT AND CRC; P: 1. Begin Vancomycin 1000 mg IV q24h 2. Follow up Trough level on 07/30/21 at 2230 3. Pharmacy will continue to monitor, follow and adjust therapy as needed. SHILPA SAMS RPH, 07/29/21 0353 Signed: 07/29/21 at 035 by SHILPA SAMS RPH PHA
--- NOTE | 2021-07-29 05:00 | NUR ---
ADMIT to ICU room 104 from ED. Report from Ira SIDDIQUI. Arrived with IVF and mag infusing. Awake and able to answer yes and no questions. Unable to get pmhx. Wounds pictured. Up in place. Denies pain. Heel protectors removed at this time. VSS. Will continue to monitor.
[2021-07-29] MEDS: PIPERACILLIN/TAZOBACTAM 2.25 GM in IV NORMAL SALINE 50ML 50 ML IV SCH ×5 (05:35→22:19)
[2021-07-29] MEDS: HEPARIN for SUB-Q USE 5,000 UNIT/ML VIAL. SQ SCH ×3 (05:35→20:30)
--- NOTE | 2021-07-29 07:46 | EKG ---
[facility] [address] [place] [address] Test Date: 2021-07-28 Test Time: 21:57:33 Pat Name: MIRELLA TURNER Department: Room: 104 1 Gender: F Coat Examiner: : 1935 Requested By: KACI MCKEE Order Number: [id number] Reading MD: Thor Youngblood Measurements Intervals [place] Rate: 105 P: 90 SC: 148 QRS: 21 QRSD: 80 T: 66 QT: 348 QTc: 464 Interpretive Statements SINUS TACHYCARDIA VENTRICULAR PREMATURE COMPLEX(ES) ATRIAL PREMATURE COMPLEX(ES) T ABNORMALITY IN HIGH LATERAL LEADS ABNORMAL ECG RI6.02 No previous ECG available for comparison Electronically Signed On 07-29-2021 19:27:17 DISPOSAL MAN by Thor Youngblood
[2021-07-29] MEDS: INSULIN LISPRO 300 UNITS/3 ML VIAL. SQ SCH ×3 (08:00→17:00)
--- NOTE | 2021-07-29 08:18 | RAD ---
EXAMINATION: Thyroid sonogram. INDICATION: Thyroid mass on CT, COMPARISON: CT dated 07/28/2021. Technique: Real-time grayscale and color Doppler imaging of the thyroid gland was performed per francois col. Findings: The right thyroid lobe measures: 5.1 x 3.2 x 3.1 cm. The left thyroid lobe measures: 2.5 x 1.5 x 1.5 cm. The isthmus measures: 3.9 mm. Estimated total number of nodules >/= 1cm: 2 Number of spongiform nodules >/= 2cm not described below (TR1): 0. Nodule #1: Maximum size: 5.1 cm. Location: Right thyroid lobe. Composition: Solid or almost completely solid (2 points) Echogenicity: Hyperechoic or isoechoic (1 point) Shape: [id number] (3 points) Margins: Ill-defined (0 points) Echogenic foci: None or large comet-tail artifacts (0 points) ACR TI-RADS total points: 6. ACR TI-RADS risk category: TR4 (4-6 points) - Moderately suspicious. FNA if ?1.5 cm. Follow if ?1 cm. Nodule #2: Maximum size: 7 mm. Location: Left thyroid lobe. Composition: Solid or almost completely solid (2 points) Echogenicity: Hypoechoic (2 points) Shape: [id number] (0 points) Margins: Ill-defined (0 points) Echogenic foci: None or large comet-tail artifacts (0 points) ACR TI-RADS total points: 4. ACR TI-RADS risk category: TR4 (4-6 points) - Moderately suspicious. FNA if ?1.5 cm. Follow if ?1 cm. IMPRESSION: 1. 5.1 cm dominant right thyroid nodule. TI-RADS Category 4. Fine-needle aspiration is recommended. 2. 7 mm left thyroid nodule. TI-RADS Category 4. Follow-up is not typically performed for category 4 nodules of this size. ACR TI-RADS recommendations TR5 (?7 points) - FNA if ? 1cm, follow-up if 0.5 - 0.9 cm every year for 5 years TR4 (4-6 points) - FNA if ? 1.5cm, follow-up if 1 - 1.4 cm in 1, 2, 3 and 5 years TR3 (3 points)- FNA if ? 2.5cm, follow-up if 1.5 - 2.4 cm in 1, 3 and 5 years TR2 (2 points) & TR1 (0 points) - No FNA or follow-up *Decision to biopsy should include other considerations such as patient demographics and relevant cli nical information. Reference: TIRADS 2017 J Am Ameya Radiol 2017;14:587-595 Electronically signed by: Toya Wilhelm MD (07/29/2021 8:15 AM) [id number]
[2021-07-29] MEDS: IV NORMAL SALINE 1000ML BAG 1,000 ML IV SCH ×3 (10:14→20:30)
--- NOTE | 2021-07-29 11:02 | PDOC ---
[employer] PROGRESS NOTE Date of Service DOS: DATE: 07/29/21 TIME: 11:00 Chief Complaint Chief Complaint Encephalopathy Sepsis Dementia Diabetes Iron deficiency anemia Prior pulmonary embolism CHELSY T9 vertebral body fracture Constipation Thyroid nodule Sacral decub Right elbow decub Heel ulcers senior care resident History of Present Illness History of Present Illness 07/29/2021 Patient seen and examined Vina discussed with RN Chart reviewed She is currently lying on her left side resting with no apparent distress Heel has clean dry intact dressing Has D5 LR hanging Has Zosyn hanging Up to bedside drainage Vitals/I&O Vitals/I&O: Vital Signs Date Time Temp Pulse Resp B/P (MAP) Pulse Ox O2 Delivery O2 Flow Rate FiO2 07/29/21 09:00 92 18 113/61 (78) 98 Room Air 07/29/21 08:00 99.4 99.4 I & O 07/28/21 07/28/21 07/29/21 15:00 23:00 07:00 Intake Total 1000 ml 50 ml Output Total 300 ml Balance 1000 ml -250 ml Physical Exam General: No acute distress Heart: Regular rate Lungs: Clear Abdomen: Normal bowel sounds, Soft, No tenderness, No hepatosplenomegaly, No masses Skin: Other (right elbow, bilateral heels and gluteal ulcers) Labs Labs: Laboratory Tests Test 07/28/21 19:30 07/28/21 22:38 07/28/21 22:52 07/29/21 00:02 White Blood Count 9.7 x10^3/uL (4.0-11.0) Red Blood Count 3.01 x10^6/uL (3.50-5.40) Hemoglobin 7.3 g/dL (12.0-15.5) Hematocrit 22.6 % (36.0-47.0) Mean Corpuscular Volume 75 fL (79-100) Mean Corpuscular Hemoglobin 24 pg (25-35) Mean Corpuscular Hemoglobin Concent 32 g/dL (31-37) Red Cell Distribution Width 21.7 % (11.5-14.5) Platelet Count 408 x10^3/uL (140-400) Neutrophils (%) (Auto) 93 % (31-73) Lymphocytes (%) (Auto) 3 % (24-48) Monocytes (%) (Auto) 3 % (0-9) Eosinophils (%) (Auto) 0 % (0-3) Basophils (%) (Auto) 1 % (0-3) Neutrophils # (Auto) 9.0 x10^3/uL (1.8-7.7) Lymphocytes # (Auto) 0.3 x10^3/uL (1.0-4.8) Monocytes # (Auto) 0.3 x10^3/uL (0.0-1.1) Eosinophils # (Auto) 0.0 x10^3/uL (0.0-0.7) Basophils # (Auto) 0.1 x10^3/uL (0.0-0.2) Segmented Neutrophils % 95 % (35-66) Lymphocytes % 2 % (24-48) Monocytes % 2 % (0-10) Basophils % 1 % (0-3) Platelet Estimate Increased (ADEQUATE) Hypochromasia Mod Anisocytosis Mod Schistocytes Occ Prothrombin Time 23.0 SEC (11.7-14.0) Prothromb Time International Ratio 2.1 (0.8-1.1) Urine Color Yellow Urine Clarity Cloudy Urine pH 5.0 (<5.0-8.0) Urine Specific [place] 1.015 (1.000-1.030) Urine Protein Negative mg/dL (NEG-TRACE) Urine Glucose (UA) Negative mg/dL (NEG) Urine Ketones (Stick) Negative mg/dL (NEG) Urine Blood Negative (NEG) Urine Nitrite Negative (NEG) Urine Bilirubin Negative (NEG) Urine Urobilinogen Dipstick 1.0 mg/dL (0.2 mg/dL) Urine Leukocyte Esterase Moderate (NEG) Urine RBC 0 /HPF (0-2) Urine WBC 5-10 /HPF (0-4) Urine Squamous Epithelial Cells Mod /LPF Urine Amorphous Sediment Present /HPF Urine Bacteria Few /HPF (0-FEW) Urine Hyaline Casts Moderate /HPF Urine Granular Casts Few /HPF Urine Mucus Marked /LPF Sodium Level 139 mmol/L (136-145) Potassium Level 3.7 mmol/L (3.5-5.1) Chloride Level 105 mmol/L (98-107) Carbon Dioxide Level 21 mmol/L (21-32) Anion Gap 13 (6-14) Blood Urea Nitrogen 24 mg/dL (7-20) Creatinine 1.4 mg/dL (0.6-1.0) Estimated GFR (Cockcroft-Gault) 43.2 BUN/Creatinine Ratio 17 (6-20) Glucose Level 171 mg/dL (70-99) Lactic Acid Level 3.3 mmol/L (0.4-2.0) 1.6 mmol/L (0.4-2.0) Calcium Level 8.7 mg/dL (8.5-10.1) Phosphorus Level 2.4 mg/dL (2.6-4.7) Magnesium Level 1.7 mg/dL (1.8-2.4) Total Bilirubin 0.7 mg/dL (0.2-1.0) Aspartate Amino Transf (AST/SGOT) 33 U/L (15-37) Alanine Aminotransferase (ALT/SGPT) 18 U/L (14-59) Alkaline Phosphatase 64 U/L (46-116) C-Reactive Protein, Quantitative 115.5 mg/L (0-3.3) EE-Oxh-X-Type Natriuretic Peptide 3605 pg/mL (0-449) Total Protein 6.0 g/dL (6.4-8.2) Albumin 1.6 g/dL (3.4-5.0) Albumin/Globulin Ratio 0.4 (1.0-1.7) Lipase 55 U/L (73-393) Bedside Venous pH 7.42 (7.32-7.42) Bedside Venous pCO2 39 mmHg (41-51) Bedside Venous pO2 23 mmHg (20-40) Venous Blood HCO3 25 mmol/L (24-28) POC Venous O2 Saturation (Lewis) 43 % Bedside FiO2 21.0 Glucose (Fingerstick) 175 mg/dL (70-99) Test 07/29/21 10:15 Glucose (Fingerstick) 124 mg/dL (70-99) Assessment and Plan Assessmemt and Plan Problems Medical Problems: (1) Open wound of sacroiliac region Status: Acute (2) Septic shock Status: Acute Acute encephalopathy - likely metabolic due to hypotension, shock from sepsis. Will monitor BP, fluids, antibiotics Sepsis - likely from UTI and gluteal ulcer. Empiric antibiotics with vancomycin and zosyn Alzheimer dementia - on aricept, will hold for confusion DM2 - lantus 10u qhs + sliding scale Iron deficiency anemia - on replacement therapy Prior pulmonary embolism - per SNF records - on eliquis CHELSY vs CKD - CR 1.4, will monitor T9 vertebral body fracture - will have PMR assessment Constipation - with Large rectal stool ball measuring 6 cm diameter with mild rectal wall thickening. digitally examined and partially disimpacted Heterogeneous right thyroid lobe - mass effect on the trachea and esophagus. Will obtain US Sacral decubitus ulcer - having wound care at SNF, will have wound care to see, is unstageable, has stool during examination Right elbow ulcer - superficial, local wound care Bilateral heel ulcers - superficial, have wound care to see Trend labs Home meds DVT prophylaxis Full code Long-term prognosis guarded Comment Review of Relevant I have reviewed the following items anand (where applicable) has been applied. Medications: Current Medications Medications (Trade) Dose Ordered Sig/Leandra Route PRN Reason Start Time Stop Time Status Last Admin Dose Admin Acetaminophen (Tylenol Supp) 650 mg 1X ONCE ID 07/28/21 19:30 07/28/21 20:11 DC 07/28/21 19:40 Ringer's Solution 1,000 ml @ 1,000 mls/hr 1X ONCE IV 07/28/21 19:30 07/28/21 20:29 DC 07/28/21 19:25 Ringer's Solution 1,000 ml @ 100 mls/hr 1X ONCE IV 07/28/21 20:00 07/29/21 05:59 DC 07/28/21 20:10 Vancomycin HCl 1.5 gm/Sodium Chloride 500 ml @ 250 mls/hr 1X ONCE IV 07/28/21 23:45 07/29/21 01:44 DC 07/28/21 23:55 Piperacillin Sod/ Tazobactam Sod 3.375 gm/Sodium Chloride 50 ml @ 100 mls/hr 1X ONCE IV 07/28/21 20:00 07/28/21 20:29 DC 07/28/21 20:39 Sodium Chloride 1,000 ml @ 100 mls/hr Q10H IV 07/28/21 22:00 07/29/21 21:59 07/29/21 10:14 Heparin Sodium (Porcine) (Heparin Sodium) 5,000 unit Q8HRS SQ 07/29/21 06:00 07/29/21 05:35 Vancomycin HCl (Vanco Per Pharmacy) 1 each PRN DAILY PRN MC SEE COMMENTS 07/28/21 22:45 07/29/21 03:51 Magnesium Sulfate/ Dextrose 100 ml @ 100 mls/hr 1X ONCE IV 07/28/21 23:30 07/29/21 00:29 DC 07/28/21 23:30 Insulin Glargine (Lantus Syringe) 10 unit QHS SQ 07/28/21 21:00 07/29/21 00:06 Piperacillin Sod/ Tazobactam Sod 2.25 gm/Sodium Chloride 50 ml @ 100 mls/hr Q6HRS IV 07/29/21 00:00 07/29/21 10:13 Justifications for Admission Other Justification PREM DELEON III DO Jul 29, 2021 11:02
[2021-07-29] MEDS: FERROUS SULFATE 325 MG TABLET. PO SCH (13:53)
[2021-07-29] MEDS: DICLOFENAC SODIUM 1% TOPICAL GEL 100GM TUBE. TP SCH ×2 (13:53→20:30)
[2021-07-29 14:05] LABS: BASO % 0 % (0-3); EOS # 0.1 x10^3/uL (0.0-0.7); EOS % 1 % (0-3); HEMATOCRIT 21.1 % (36.0-47.0); LYMPH # 0.6 x10^3/uL (1.0-4.8); LYMPH % 5 % (24-48); MEAN CORPUSCULAR HEMOGLOBIN 24 pg (25-35); MEAN CORPUSCULAR HGB CONC 32 g/dL (31-37); MEAN CORPUSCULAR VOLUME 75 fL (79-100); MONO # 0.3 x10^3/uL (0.0-1.1); MONO % 3 % (0-9); NEUT # 10.9 x10^3/uL (1.8-7.7); NEUT % 91 % (31-73); PLATELET COUNT 419 x10^3/uL (140-400); RED BLOOD COUNT 2.82 x10^6/uL (3.50-5.40); RED CELL DISTRIBUTION WIDTH 22.4 % (11.5-14.5); WHITE BLOOD COUNT 11.9 x10^3/uL (4.0-11.0)
[2021-07-29 14:13] LABS: HEMOGLOBIN 6.7 g/dL (12.0-15.5)
[2021-07-29 14:20] LABS: ALBUMIN 1.6 g/dL (3.4-5.0); ALBUMIN/GLOBULIN RATIO 0.4 (1.0-1.7); CALCIUM 8.9 mg/dL (8.5-10.1); CREATININE 1.1 mg/dL (0.6-1.0); GFR 57.1; POTASSIUM 3.5 mmol/L (3.5-5.1); TOTAL BILIRUBIN 0.5 mg/dL (0.2-1.0); TOTAL PROTEIN 6.1 g/dL (6.4-8.2)
--- NOTE | 2021-07-29 14:51 | NUR ---
SS following for discharge planning. SS reviewed pt chart and discussed with pt RN. Pt is LTC resident from [facility], ; fax [phone]. Pt is currently on room air. Pt on IV Vancomycin and IV Zosyn. Hemoglobin low. Dr. Nation and wound care consulted. Pt transferred to room 514. Chitra MARCUM, to follow.
--- NOTE | 2021-07-29 18:18 | PDOC2 ---
CONSULT Date of Consult Date of Consult DATE: 07/29/21 TIME: 18:18 Reason for Consult Reason for Consult: Evaluate sacral wound Referring Physician Referring Physician: Dr. Duran Identification/Chief Complaint Chief Complaint Sepsis Source Source: Chart review History of Present Illness Reason for Visit: The patient is a pleasant 85-year-old female who was admitted to the hospital yesterday with sepsis with a suspected source as the sacral ulcer. The patient resides at a [facility] facility where she is bedbound. Her medical history includes Alzheimer's dementia, hypertension, diabetes, iron deficiency anemia, and she is on Eliquis for pulmonary embolus. It is unclear how long the sacral ulcer has been present. The nursing team informed me that the patient has been having loose stools that are contaminating the wound. Past Medical History Cardiovascular: HTN Pulmonary: Pulmonary embolus CENTRAL NERVOUS SYSTEM: Dementia Endocrine: Diabetes Past Surgical History Past Surgical History: Other (Spine surgery) Family History Family History: Family History Unknown Social History No ALCOHOL: none Drugs: None Current Problem List Problem List Problems Medical Problems: (1) Open wound of sacroiliac region Status: Acute (2) Septic shock Status: Acute Current Medications Current Medications Current Medications Acetaminophen (Tylenol Supp) 650 mg 1X ONCE AK Last administered on 07/28/21at 19:40; Start 07/28/21 at 19:30; Stop 07/28/21 at 20:11; Status DC Ringer's Solution 1,000 ml @ 1,000 mls/hr 1X ONCE IV Last administered on 07/28/21at 19:25; Start 07/28/21 at 19:30; Stop 07/28/21 at 20:29; Status DC Ringer's Solution 1,000 ml @ 100 mls/hr 1X ONCE IV Last administered on 07/28/21at 20:10; Start 07/28/21 at 20:00; Stop 07/29/21 at 05:59; Status DC Vancomycin HCl 1.5 gm/Sodium Chloride 500 ml @ 250 mls/hr 1X ONCE IV Last administered on 07/28/21at 23:55; Start 07/28/21 at 23:45; Stop 07/29/21 at 01:44; Status DC Piperacillin Sod/ Tazobactam Sod 3.375 gm/Sodium Chloride 50 ml @ 100 mls/hr 1X ONCE IV Last administered on 07/28/21at 20:39; Start 07/28/21 at 20:00; Stop 07/28/21 at 20:29; Status DC Haloperidol Lactate (Haldol Inj) 5 mg 1X ONCE IVP ; Start 07/28/21 at 20:30; Stop 07/28/21 at 20:31; Status DC Diphenhydramine HCl (Benadryl) 25 mg 1X ONCE IVP ; Start 07/28/21 at 20:30; Stop 07/28/21 at 20:31; Status DC Ondansetron HCl (Zofran) 4 mg PRN Q8HRS PRN IVP NAUSEA/VOMITING 1ST CHOICE; Start 07/28/21 at 21:45; Stop 07/28/21 at 22:48; Status DC Fentanyl Citrate (Fentanyl 2ml Vial) 50 mcg PRN Q1HR PRN IVP SEVERE PAIN 7-10; Start 07/28/21 at 21:45; Stop 07/29/21 at 21:44 Sodium Chloride 1,000 ml @ 100 mls/hr Q10H IV Last administered on 07/29/21at 12:25; Start 07/28/21 at 22:00; Stop 07/29/21 at 21:59 Acetaminophen (Tylenol) 650 mg PRN Q4HRS PRN PO FEVER > 100.3'F; Start 07/28/21 at 21:45; Stop 07/28/21 at 22:48; Status DC Ondansetron HCl (Zofran) 4 mg PRN Q4HRS PRN IVP NAUSEA/VOMITING 1ST CHOICE; Start 07/28/21 at 22:45 Acetaminophen (Tylenol) 650 mg PRN Q6HRS PRN PO FEVER > 100.3'F; Start 07/28/21 at 22:45 Olanzapine (ZyPREXA ZYDIS) 5 mg PRN BID PRN PO ANXIETY / AGITATION; Start 07/28/21 at 22:45 Heparin Sodium (Porcine) (Heparin Sodium) 5,000 unit Q8HRS SQ Last administered on 07/29/21at 13:56; Start 07/29/21 at 06:00 Vancomycin HCl (Vanco Per Pharmacy) 1 each PRN DAILY PRN MC SEE COMMENTS Last administered on 07/29/21at 03:51; Start 07/28/21 at 22:45 Piperacillin Sod/ Tazobactam Sod (Zosyn Per Pharmacy) 1 each PRN DAILY PRN MC SEE COMMENTS; Start 07/28/21 at 22:45 Magnesium Sulfate/ Dextrose 100 ml @ 100 mls/hr 1X ONCE IV Last administered on 07/28/21at 23:30; Start 07/28/21 at 23:30; Stop 07/29/21 at 00:29; Status DC Insulin Glargine (Lantus Syringe) 10 unit QHS SQ Last administered on 07/29/21at 00:06; Start 07/28/21 at 21:00 Insulin Human Lispro (HumaLOG) 0-9 UNITS TIDWMEALS SQ ; Start 07/29/21 at 08:00 Dextrose (Dextrose 50%-Water Syringe) 12.5 gm PRN Q15MIN PRN IV SEE COMMENTS; Start 07/28/21 at 23:00 Dextrose (Iv Dextrose 5%) 250 ml PRN Q15MIN PRN IV SEE COMMENTS; Start 07/28/21 at 23:00; Status UNV Piperacillin Sod/ Tazobactam Sod 2.25 gm/Sodium Chloride 50 ml @ 100 mls/hr Q6HRS IV Last administered on 07/29/21at 18:12; Start 07/29/21 at 00:00 Vancomycin HCl 1 gm/Sodium Chloride 250 ml @ 250 mls/hr Q24H IV ; Start 07/29/21 at 23:00 Vancomycin HCl (Vancomycin Trough Level) 1 each 1X ONCE MC ; Start 07/30/21 at 22:30; Stop 07/30/21 at 22:31 Diclofenac Sodium (Voltaren) 1 kassandra BID TP Last administered on 07/29/21at 13:53; Start 07/29/21 at 12:30 Ferrous Sulfate (Feosol) 325 mg DAILYWBKFT PO Last administered on 07/29/21at 13:53; Start 07/29/21 at 12:30 Allergies Allergies: Coded Allergies: No Known Drug Allergies (Unverified , 07/28/21) Physical Exam General: No acute distress Lungs: Normal air movement Heart: Regular rate Abdomen: Soft Skin: Other (Stage IV sacral decubitus ulcer measuring approximately 4 x 2 x 1.5 cm with thin amount of tissue overlying the bone. There is stool in the wound. No surrounding cellulitis. Moderate slough along the edges and mild to moderate at the base.) Psych/Mental Status: Other (Patient verbalized greeting but unaware of situation with sacral wound.) Vitals VITALS Vital Signs Date Time Temp Pulse Resp B/P (MAP) Pulse Ox O2 Delivery O2 Flow Rate FiO2 07/29/21 15:00 100.3 104 18 121/56 (77) 97 Room Air 100.3 Labs Labs Laboratory Tests Test 07/28/21 19:30 07/28/21 22:38 07/28/21 22:52 07/29/21 00:02 White Blood Count 9.7 x10^3/uL (4.0-11.0) Red Blood Count 3.01 x10^6/uL (3.50-5.40) Hemoglobin 7.3 g/dL (12.0-15.5) Hematocrit 22.6 % (36.0-47.0) Mean Corpuscular Volume 75 fL (79-100) Mean Corpuscular Hemoglobin 24 pg (25-35) Mean Corpuscular Hemoglobin Concent 32 g/dL (31-37) Red Cell Distribution Width 21.7 % (11.5-14.5) Platelet Count 408 x10^3/uL (140-400) Neutrophils (%) (Auto) 93 % (31-73) Lymphocytes (%) (Auto) 3 % (24-48) Monocytes (%) (Auto) 3 % (0-9) Eosinophils (%) (Auto) 0 % (0-3) Basophils (%) (Auto) 1 % (0-3) Neutrophils # (Auto) 9.0 x10^3/uL (1.8-7.7) Lymphocytes # (Auto) 0.3 x10^3/uL (1.0-4.8) Monocytes # (Auto) 0.3 x10^3/uL (0.0-1.1) Eosinophils # (Auto) 0.0 x10^3/uL (0.0-0.7) Basophils # (Auto) 0.1 x10^3/uL (0.0-0.2) Segmented Neutrophils % 95 % (35-66) Lymphocytes % 2 % (24-48) Monocytes % 2 % (0-10) Basophils % 1 % (0-3) Platelet Estimate Increased (ADEQUATE) Hypochromasia Mod Anisocytosis Mod Schistocytes Occ Prothrombin Time 23.0 SEC (11.7-14.0) Prothromb Time International Ratio 2.1 (0.8-1.1) Urine Color Yellow Urine Clarity Cloudy Urine pH 5.0 (<5.0-8.0) Urine Specific [place] 1.015 (1.000-1.030) Urine Protein Negative mg/dL (NEG-TRACE) Urine Glucose (UA) Negative mg/dL (NEG) Urine Ketones (Stick) Negative mg/dL (NEG) Urine Blood Negative (NEG) Urine Nitrite Negative (NEG) Urine Bilirubin Negative (NEG) Urine Urobilinogen Dipstick 1.0 mg/dL (0.2 mg/dL) Urine Leukocyte Esterase Moderate (NEG) Urine RBC 0 /HPF (0-2) Urine WBC 5-10 /HPF (0-4) Urine Squamous Epithelial Cells Mod /LPF Urine Amorphous Sediment Present /HPF Urine Bacteria Few /HPF (0-FEW) Urine Hyaline Casts Moderate /HPF Urine Granular Casts Few /HPF Urine Mucus Marked /LPF Sodium Level 139 mmol/L (136-145) Potassium Level 3.7 mmol/L (3.5-5.1) Chloride Level 105 mmol/L (98-107) Carbon Dioxide Level 21 mmol/L (21-32) Anion Gap 13 (6-14) Blood Urea Nitrogen 24 mg/dL (7-20) Creatinine 1.4 mg/dL (0.6-1.0) Estimated GFR (Cockcroft-Gault) 43.2 BUN/Creatinine Ratio 17 (6-20) Glucose Level 171 mg/dL (70-99) Lactic Acid Level 3.3 mmol/L (0.4-2.0) 1.6 mmol/L (0.4-2.0) Calcium Level 8.7 mg/dL (8.5-10.1) Phosphorus Level 2.4 mg/dL (2.6-4.7) Magnesium Level 1.7 mg/dL (1.8-2.4) Total Bilirubin 0.7 mg/dL (0.2-1.0) Aspartate Amino Transf (AST/SGOT) 33 U/L (15-37) Alanine Aminotransferase (ALT/SGPT) 18 U/L (14-59) Alkaline Phosphatase 64 U/L (46-116) C-Reactive Protein, Quantitative 115.5 mg/L (0-3.3) LD-Eeq-Y-Type Natriuretic Peptide 3605 pg/mL (0-449) Total Protein 6.0 g/dL (6.4-8.2) Albumin 1.6 g/dL (3.4-5.0) Albumin/Globulin Ratio 0.4 (1.0-1.7) Lipase 55 U/L (73-393) Bedside Venous pH 7.42 (7.32-7.42) Bedside Venous pCO2 39 mmHg (41-51) Bedside Venous pO2 23 mmHg (20-40) Venous Blood HCO3 25 mmol/L (24-28) POC Venous O2 Saturation (Lewis) 43 % Bedside FiO2 21.0 Glucose (Fingerstick) 175 mg/dL (70-99) Test 07/29/21 10:15 07/29/21 12:43 07/29/21 13:40 07/29/21 16:53 Glucose (Fingerstick) 124 mg/dL (70-99) 150 mg/dL (70-99) 124 mg/dL (70-99) White Blood Count 11.9 x10^3/uL (4.0-11.0) Red Blood Count 2.82 x10^6/uL (3.50-5.40) Hemoglobin 6.7 g/dL (12.0-15.5) Hematocrit 21.1 % (36.0-47.0) Mean Corpuscular Volume 75 fL (79-100) Mean Corpuscular Hemoglobin 24 pg (25-35) Mean Corpuscular Hemoglobin Concent 32 g/dL (31-37) Red Cell Distribution Width 22.4 % (11.5-14.5) Platelet Count 419 x10^3/uL (140-400) Neutrophils (%) (Auto) 91 % (31-73) Lymphocytes (%) (Auto) 5 % (24-48) Monocytes (%) (Auto) 3 % (0-9) Eosinophils (%) (Auto) 1 % (0-3) Basophils (%) (Auto) 0 % (0-3) Neutrophils # (Auto) 10.9 x10^3/uL (1.8-7.7) Lymphocytes # (Auto) 0.6 x10^3/uL (1.0-4.8) Monocytes # (Auto) 0.3 x10^3/uL (0.0-1.1) Eosinophils # (Auto) 0.1 x10^3/uL (0.0-0.7) Basophils # (Auto) 0.0 x10^3/uL (0.0-0.2) Sodium Level 139 mmol/L (136-145) Potassium Level 3.5 mmol/L (3.5-5.1) Chloride Level 108 mmol/L (98-107) Carbon Dioxide Level 24 mmol/L (21-32) Anion Gap 7 (6-14) Blood Urea Nitrogen 20 mg/dL (7-20) Creatinine 1.1 mg/dL (0.6-1.0) Estimated GFR (Cockcroft-Gault) 57.1 BUN/Creatinine Ratio 18 (6-20) Glucose Level 199 mg/dL (70-99) Calcium Level 8.9 mg/dL (8.5-10.1) Total Bilirubin 0.5 mg/dL (0.2-1.0) Aspartate Amino Transf (AST/SGOT) 36 U/L (15-37) Alanine Aminotransferase (ALT/SGPT) 31 U/L (14-59) Alkaline Phosphatase 66 U/L (46-116) Total Protein 6.1 g/dL (6.4-8.2) Albumin 1.6 g/dL (3.4-5.0) Albumin/Globulin Ratio 0.4 (1.0-1.7) Laboratory Tests Test 07/28/21 19:30 07/28/21 22:38 07/28/21 22:52 07/29/21 00:02 White Blood Count 9.7 x10^3/uL (4.0-11.0) Red Blood Count 3.01 x10^6/uL (3.50-5.40) Hemoglobin 7.3 g/dL (12.0-15.5) Hematocrit 22.6 % (36.0-47.0) Mean Corpuscular Volume 75 fL (79-100) Mean Corpuscular Hemoglobin 24 pg (25-35) Mean Corpuscular Hemoglobin Concent 32 g/dL (31-37) Red Cell Distribution Width 21.7 % (11.5-14.5) Platelet Count 408 x10^3/uL (140-400) Neutrophils (%) (Auto) 93 % (31-73) Lymphocytes (%) (Auto) 3 % (24-48) Monocytes (%) (Auto) 3 % (0-9) Eosinophils (%) (Auto) 0 % (0-3) Basophils (%) (Auto) 1 % (0-3) Neutrophils # (Auto) 9.0 x10^3/uL (1.8-7.7) Lymphocytes # (Auto) 0.3 x10^3/uL (1.0-4.8) Monocytes # (Auto) 0.3 x10^3/uL (0.0-1.1) Eosinophils # (Auto) 0.0 x10^3/uL (0.0-0.7) Basophils # (Auto) 0.1 x10^3/uL (0.0-0.2) Segmented Neutrophils % 95 % (35-66) Lymphocytes % 2 % (24-48) Monocytes % 2 % (0-10) Basophils % 1 % (0-3) Platelet Estimate Increased (ADEQUATE) Hypochromasia Mod Anisocytosis Mod Schistocytes Occ Prothrombin Time 23.0 SEC (11.7-14.0) Prothromb Time International Ratio 2.1 (0.8-1.1) Urine Color Yellow Urine Clarity Cloudy Urine pH 5.0 (<5.0-8.0) Urine Specific [place] 1.015 (1.000-1.030) Urine Protein Negative mg/dL (NEG-TRACE) Urine Glucose (UA) Negative mg/dL (NEG) Urine Ketones (Stick) Negative mg/dL (NEG) Urine Blood Negative (NEG) Urine Nitrite Negative (NEG) Urine Bilirubin Negative (NEG) Urine Urobilinogen Dipstick 1.0 mg/dL (0.2 mg/dL) Urine Leukocyte Esterase Moderate (NEG) Urine RBC 0 /HPF (0-2) Urine WBC 5-10 /HPF (0-4) Urine Squamous Epithelial Cells Mod /LPF Urine Amorphous Sediment Present /HPF Urine Bacteria Few /HPF (0-FEW) Urine Hyaline Casts Moderate /HPF Urine Granular Casts Few /HPF Urine Mucus Marked /LPF Sodium Level 139 mmol/L (136-145) Potassium Level 3.7 mmol/L (3.5-5.1) Chloride Level 105 mmol/L (98-107) Carbon Dioxide Level 21 mmol/L (21-32) Anion Gap 13 (6-14) Blood Urea Nitrogen 24 mg/dL (7-20) Creatinine 1.4 mg/dL (0.6-1.0) Estimated GFR (Cockcroft-Gault) 43.2 BUN/Creatinine Ratio 17 (6-20) Glucose Level 171 mg/dL (70-99) Lactic Acid Level 3.3 mmol/L (0.4-2.0) 1.6 mmol/L (0.4-2.0) Calcium Level 8.7 mg/dL (8.5-10.1) Phosphorus Level 2.4 mg/dL (2.6-4.7) Magnesium Level 1.7 mg/dL (1.8-2.4) Total Bilirubin 0.7 mg/dL (0.2-1.0) Aspartate Amino Transf (AST/SGOT) 33 U/L (15-37) Alanine Aminotransferase (ALT/SGPT) 18 U/L (14-59) Alkaline Phosphatase 64 U/L (46-116) C-Reactive Protein, Quantitative 115.5 mg/L (0-3.3) GV-Rli-G-Type Natriuretic Peptide 3605 pg/mL (0-449) Total Protein 6.0 g/dL (6.4-8.2) Albumin 1.6 g/dL (3.4-5.0) Albumin/Globulin Ratio 0.4 (1.0-1.7) Lipase 55 U/L (73-393) Bedside Venous pH 7.42 (7.32-7.42) Bedside Venous pCO2 39 mmHg (41-51) Bedside Venous pO2 23 mmHg (20-40) Venous Blood HCO3 25 mmol/L (24-28) POC Venous O2 Saturation (Lewis) 43 % Bedside FiO2 21.0 Glucose (Fingerstick) 175 mg/dL (70-99) Test 07/29/21 10:15 07/29/21 12:43 07/29/21 13:40 07/29/21 16:53 Glucose (Fingerstick) 124 mg/dL (70-99) 150 mg/dL (70-99) 124 mg/dL (70-99) White Blood Count 11.9 x10^3/uL (4.0-11.0) Red Blood Count 2.82 x10^6/uL (3.50-5.40) Hemoglobin 6.7 g/dL (12.0-15.5) Hematocrit 21.1 % (36.0-47.0) Mean Corpuscular Volume 75 fL (79-100) Mean Corpuscular Hemoglobin 24 pg (25-35) Mean Corpuscular Hemoglobin Concent 32 g/dL (31-37) Red Cell Distribution Width 22.4 % (11.5-14.5) Platelet Count 419 x10^3/uL (140-400) Neutrophils (%) (Auto) 91 % (31-73) Lymphocytes (%) (Auto) 5 % (24-48) Monocytes (%) (Auto) 3 % (0-9) Eosinophils (%) (Auto) 1 % (0-3) Basophils (%) (Auto) 0 % (0-3) Neutrophils # (Auto) 10.9 x10^3/uL (1.8-7.7) Lymphocytes # (Auto) 0.6 x10^3/uL (1.0-4.8) Monocytes # (Auto) 0.3 x10^3/uL (0.0-1.1) Eosinophils # (Auto) 0.1 x10^3/uL (0.0-0.7) Basophils # (Auto) 0.0 x10^3/uL (0.0-0.2) Sodium Level 139 mmol/L (136-145) Potassium Level 3.5 mmol/L (3.5-5.1) Chloride Level 108 mmol/L (98-107) Carbon Dioxide Level 24 mmol/L (21-32) Anion Gap 7 (6-14) Blood Urea Nitrogen 20 mg/dL (7-20) Creatinine 1.1 mg/dL (0.6-1.0) Estimated GFR (Cockcroft-Gault) 57.1 BUN/Creatinine Ratio 18 (6-20) Glucose Level 199 mg/dL (70-99) Calcium Level 8.9 mg/dL (8.5-10.1) Total Bilirubin 0.5 mg/dL (0.2-1.0) Aspartate Amino Transf (AST/SGOT) 36 U/L (15-37) Alanine Aminotransferase (ALT/SGPT) 31 U/L (14-59) Alkaline Phosphatase 66 U/L (46-116) Total Protein 6.1 g/dL (6.4-8.2) Albumin 1.6 g/dL (3.4-5.0) Albumin/Globulin Ratio 0.4 (1.0-1.7) Assessment/Plan Assessment/Plan 85-year-old female with stage IV sacral decubitus ulcer The patient is not a candidate for reconstructive surgery for her wound. Palliative wound care is recommended. Recommend immediate insertion of a rectal tube to divert feces away from the wound. Recommend veraflo wound VAC placement to cleanse the wound and stimulate healing Patient is malnourished. Nutrition consult for evaluation and management On Vanco and Zosyn. Follow-up blood and urine cultures Transfuse as needed Discussed desired aggressiveness of treatment with family I will sign off at this time. Thank you for involving me in the care of the patient. A total of 45 minutes was spent on this visit with 25 minutes spent reviewing previous notes and documenting the findings and 20 minutes at the bedside and coordinating care with the nursing team. MARY TIJERINA MD Jul 29, 2021 18:18
[2021-07-29] MEDS ORDERED: ACET500T68 PO (19:40)
[2021-07-29] MEDS ORDERED: FLUT9.9S NS (19:40)
[2021-07-29] MEDS ORDERED: FAMO20TA5 PO (19:40)
[2021-07-29] MEDS ORDERED: FURO20TA3 PO (19:40)
[2021-07-29] MEDS ORDERED: ASCO500C PO (19:40)
[2021-07-29] MEDS ORDERED: MIRT45TA58 PO (19:40)
[2021-07-29] MEDS ORDERED: ASPI81TA59 PO (19:40)
[2021-07-29] MEDS ORDERED: POTA-163 PO (19:40)
[2021-07-29] MEDS ORDERED: PROVENTIL HFA6.7 G2 INH (19:40)
[2021-07-29] MEDS ORDERED: INSU100I13 SQ (19:40)
[2021-07-29] MEDS ORDERED: INSU100V8 SQ (19:40)
[2021-07-29] MEDS ORDERED: FERR325T14 PO (19:40)
[2021-07-29] MEDS ORDERED: SUVO5TAB PO (19:40)
[2021-07-29] MEDS ORDERED: LOPE2TAB27 PO (19:40)
[2021-07-29] MEDS ORDERED: PRAZ5CAP2 PO (19:40)
[2021-07-29] MEDS ORDERED: POLY17PO29 PO (19:40)
[2021-07-29] MEDS ORDERED: DONE5TAB56 PO (19:40)
[2021-07-29] MEDS ORDERED: APIX5TAB PO (19:40)
[2021-07-29] MEDS: SODIUM HYPOCHLORITE 0.125% 473 ML BOTTLE. TP SCH (20:30)
[2021-07-29] MEDS: VANCOMYCIN 1 GM in IV NORMAL SALINE 250ML 250 ML IV SCH (22:22)
[2021-07-30] VITALS (10 sets, daily range): BP systolic 92–141; BP diastolic 51–75
--- NOTE | 2021-07-30 00:57 | CONS ---
DATE OF CONSULTATION: 07/29/2021 ATTENDING PHYSICIAN: Dr. Spencer. REASON FOR CONSULTATION: The patient was seen at the request of Dr. Spencer for rehab evaluation. HISTORY OF PRESENT ILLNESS: This is an 85-year-old female with known Alzheimer's dementia, diabetes mellitus type 2, iron deficiency anemia, prior pulmonary embolism, on Eliquis, who was admitted through the Emergency Room with fever and altered mental status from [facility]. The patient also with known hypertension, not known allergic to any medication. She had radiological studies, which revealed 5.1 cm dominant right thyroid nodule TI-RADS category 4 and 2.7 mm left thyroid nodule TI-RADS category 4. She also had concern for toxic fracture of the thoracic spine at the level of T9 vertebral body. She is apparently not having any back pain at that level. She had multilevel degenerative disk disease and degenerative joint disease of lumbar vertebrae with some degree of kyphoscoliosis. The patient does not remember when is the last time she walked. PHYSICAL EXAMINATION: On examination today revealed an elderly female. She is awake, following some commands. She had generalized muscle weakness, dependent edema of her hands. She had flexion contractures of her hips and knees. She had dressing to sacrococcygeal area and also both heels. Deep tendon reflexes are absent at both knees and ankles. She seemed to have equal perception of touch and pinprick sensation bilaterally. Plantar reflex is flexor bilaterally. I have examined her when she is lying on her right side. She requires help with bed mobility. ASSESSMENT: Elderly female with history of Alzheimer's dementia, diabetes mellitus, iron deficiency anemia, previous pulmonary embolism, on anticoagulation, multiple decubitus ulcers over sacrococcygeal area and also both heels, flexion deformity of both hips and knees, clinical evidence of peripheral neuropathy, degenerative joint disease of both knees, where she had crepitus on range of motion of her knee joints. RECOMMENDATIONS: She is not a candidate for any rehabilitation. She needs attention to her decubitus ulcer. Suggest Wound Care and Plastic surgery consult. Dr. Spencer, I appreciate asking me to participate in the care of this interesting patient. I will be glad to see her for a followup with you on as needed basis only. LEW/SKYLER/ANAYELI DR: LEW/vishnu TID: [id number]
--- NOTE | 2021-07-30 02:35 | NUR ---
2 units of PRBC's infused. No signs or symptoms of a reaction noted. Will continue to monitor.
[2021-07-30] MEDS: PIPERACILLIN/TAZOBACTAM 2.25 GM in IV NORMAL SALINE 50ML 50 ML IV SCH ×3 (05:06→18:00)
[2021-07-30] MEDS: HEPARIN for SUB-Q USE 5,000 UNIT/ML VIAL. SQ SCH ×3 (05:09→22:00)
[2021-07-30 07:51] LABS: CALCIUM 9.2 mg/dL (8.5-10.1); CREATININE 1.1 mg/dL (0.6-1.0); GFR 57.1; POTASSIUM 3.3 mmol/L (3.5-5.1)
[2021-07-30] MEDS: INSULIN LISPRO 300 UNITS/3 ML VIAL. SQ SCH ×3 (08:00→17:00)
[2021-07-30] MEDS: FERROUS SULFATE 325 MG TABLET. PO SCH (08:00)
[2021-07-30] MEDS: DICLOFENAC SODIUM 1% TOPICAL GEL 100GM TUBE. TP SCH ×2 (09:23→21:00)
[2021-07-30] MEDS: SODIUM HYPOCHLORITE 0.125% 473 ML BOTTLE. TP SCH ×2 (09:23→20:29)
[2021-07-30] MEDS: VANCOMYCIN PER PHARMACY MC PRN (10:29)
--- NOTE | 2021-07-30 10:49 | NUR ---
SW following. Discussed with RN, pt transferred from ICU. Pt is from [facility] L[facility], room air, NPO, COVID-19 negative. Pt not medically ready for discharge, positive blood cultures. Multiple consults. SW will continue to follow.
--- NOTE | 2021-07-30 11:32 | PDOC ---
[employer] PROGRESS NOTE Date of Service DOS: DATE: 07/30/21 TIME: 11:16 Chief Complaint Chief Complaint Encephalopathy Sepsis Dementia Diabetes Iron deficiency anemia Prior pulmonary embolism - was on eliquis CHELSY T9 vertebral body fracture Constipation Thyroid nodule - very large on right with tracheal deviation. Sacral decub Right elbow decub Heel ulcers skilled nursing resident History of Present Illness History of Present Illness 07/29: Patient seen and examined bedside. She is currently lying on her left side resting with no apparent distress. Heel has clean dry intact dressing. Has D5 LR hanging. Has Zosyn hanging. Up to bedside drainage 07/30: Transferred from ICU. Hemoglobin 6.7 transfusion 1 unit PRBC given. Wound examined and wound VAC recommendations plastic surgery given her advanced dementia this is more appropriate. I discussed with speech-language pathology patient is holding onto solid foods and can have a liquid diet she does forget cues for swallowing and also may have tracheal interference with her large thyroid mass. I discussed with her grandson Antonino who wants to discuss with the rest of the family before looking to palliative care or hospice but this is something he is interested in. Discussed having a DO NOT RESUSCITATE order to which he is amenable. Vitals/I&O Vitals/I&O: Vital Signs Date Time Temp Pulse Resp B/P (MAP) Pulse Ox O2 Delivery O2 Flow Rate FiO2 07/30/21 11:00 98.1 81 18 92/51 (65) 94 98.1 07/30/21 08:00 Room Air I & O 07/29/21 07/29/21 07/30/21 15:00 23:00 07:00 Intake Total 1100 ml 300 ml Output Total 175 ml 250 ml Balance -175 ml 1100 ml 50 ml Physical Exam General: No acute distress Heart: Regular rate Lungs: Clear Abdomen: Soft Skin: Other (Stage IV sacral decubitus ulcer measuring approximately 4 x 2 x 1.5 cm with thin amount of tissue overlying the bone. There is stool in the wound. No surrounding cellulitis. Moderate slough along the edges and mild to moderate at the base.) Labs Labs: Laboratory Tests Test 07/29/21 12:43 07/29/21 13:40 07/29/21 16:53 07/29/21 20:47 Glucose (Fingerstick) 150 mg/dL (70-99) 124 mg/dL (70-99) 93 mg/dL (70-99) White Blood Count 11.9 x10^3/uL (4.0-11.0) Red Blood Count 2.82 x10^6/uL (3.50-5.40) Hemoglobin 6.7 g/dL (12.0-15.5) Hematocrit 21.1 % (36.0-47.0) Mean Corpuscular Volume 75 fL (79-100) Mean Corpuscular Hemoglobin 24 pg (25-35) Mean Corpuscular Hemoglobin Concent 32 g/dL (31-37) Red Cell Distribution Width 22.4 % (11.5-14.5) Platelet Count 419 x10^3/uL (140-400) Neutrophils (%) (Auto) 91 % (31-73) Lymphocytes (%) (Auto) 5 % (24-48) Monocytes (%) (Auto) 3 % (0-9) Eosinophils (%) (Auto) 1 % (0-3) Basophils (%) (Auto) 0 % (0-3) Neutrophils # (Auto) 10.9 x10^3/uL (1.8-7.7) Lymphocytes # (Auto) 0.6 x10^3/uL (1.0-4.8) Monocytes # (Auto) 0.3 x10^3/uL (0.0-1.1) Eosinophils # (Auto) 0.1 x10^3/uL (0.0-0.7) Basophils # (Auto) 0.0 x10^3/uL (0.0-0.2) Sodium Level 139 mmol/L (136-145) Potassium Level 3.5 mmol/L (3.5-5.1) Chloride Level 108 mmol/L (98-107) Carbon Dioxide Level 24 mmol/L (21-32) Anion Gap 7 (6-14) Blood Urea Nitrogen 20 mg/dL (7-20) Creatinine 1.1 mg/dL (0.6-1.0) Estimated GFR (Cockcroft-Gault) 57.1 BUN/Creatinine Ratio 18 (6-20) Glucose Level 199 mg/dL (70-99) Calcium Level 8.9 mg/dL (8.5-10.1) Total Bilirubin 0.5 mg/dL (0.2-1.0) Aspartate Amino Transf (AST/SGOT) 36 U/L (15-37) Alanine Aminotransferase (ALT/SGPT) 31 U/L (14-59) Alkaline Phosphatase 66 U/L (46-116) Total Protein 6.1 g/dL (6.4-8.2) Albumin 1.6 g/dL (3.4-5.0) Albumin/Globulin Ratio 0.4 (1.0-1.7) Test 07/30/21 07:10 07/30/21 07:33 Sodium Level 142 mmol/L (136-145) Potassium Level 3.3 mmol/L (3.5-5.1) Chloride Level 112 mmol/L (98-107) Carbon Dioxide Level 22 mmol/L (21-32) Anion Gap 8 (6-14) Blood Urea Nitrogen 15 mg/dL (7-20) Creatinine 1.1 mg/dL (0.6-1.0) Estimated GFR (Cockcroft-Gault) 57.1 Glucose Level 77 mg/dL (70-99) Calcium Level 9.2 mg/dL (8.5-10.1) Glucose (Fingerstick) 79 mg/dL (70-99) Assessment and Plan Assessmemt and Plan Problems Medical Problems: (1) Open wound of sacroiliac region Status: Acute (2) Septic shock Status: Acute Comment Review of Relevant I have reviewed the following items anand (where applicable) has been applied. Medications: Current Medications Medications (Trade) Dose Ordered Sig/Leandra Route PRN Reason Start Time Stop Time Status Last Admin Dose Admin Vancomycin HCl 1 gm/Sodium Chloride 250 ml @ 250 mls/hr Q24H IV 07/29/21 23:00 07/29/21 22:22 Diclofenac Sodium (Voltaren) 1 kassandra BID TP 07/29/21 12:30 07/30/21 09:23 Ferrous Sulfate (Feosol) 325 mg [id number] PO 07/29/21 12:30 07/29/21 13:53 Sodium Hypochlorite (Dakin'S 1/4 Strength) 1 kassandra BID TP 07/29/21 21:00 07/30/21 09:23 Justifications for Admission Other Justification ADRIANNA DORANTES MD Jul 30, 2021 11:32
--- NOTE | 2021-07-30 16:18 | NUR ---
Wound/Ostomy Care Wound Type/Assessment: Wound care consult for vac placement on coccyx and wounds to bilateral heels. Pt has slough covered DFU's to bilateral heels. Coccyx wound is slough and eschar covered. Treatment Recommendations/Plan: Veraflo vac placed to coccyx with NS flush 24 ml for 5 min every 3.5 hours. Change MWF Left heel- Honey, Xeroform, and foam, change every 2-3 days. Right heel- Xeroform and foam, change 2x weekly. Education provided: Pt unable to be educated due to mental status Offloading surface/device: TQ2H, P500 bed, heel medix boots Recommended Referrals/Tests: defer to surgery Discharge Recommendations for dressings: see above
[2021-07-30] MEDS: INSULIN GLARGINE SYRINGE. SQ SCH (20:29)
[2021-07-30] MEDS: VANCOMYCIN 1 GM in IV NORMAL SALINE 250ML 250 ML IV SCH (23:00)
[2021-07-30 23:10] LABS: VANC TR 16.8 mcg/mL (10.0-20.0)
[2021-07-31] MEDS: DICLOFENAC SODIUM 1% TOPICAL GEL 100GM TUBE. TP SCH ×2 (02:37→21:36)
[2021-07-31 04:30] LABS: BASO # 0.1 x10^3/uL (0.0-0.2); BASO % 1 % (0-3); EOS # 0.2 x10^3/uL (0.0-0.7); EOS % 2 % (0-3); LYMPH % 11 % (24-48); MEAN CORPUSCULAR HEMOGLOBIN 26 pg (25-35); MEAN CORPUSCULAR HGB CONC 32 g/dL (31-37); MEAN CORPUSCULAR VOLUME 79 fL (79-100); MONO # 0.4 x10^3/uL (0.0-1.1); MONO % 5 % (0-9); NEUT % 81 % (31-73); PLATELET COUNT 332 x10^3/uL (140-400); RED BLOOD COUNT 3.14 x10^6/uL (3.50-5.40); WHITE BLOOD COUNT 8.6 x10^3/uL (4.0-11.0)
[2021-07-31 05:00] LABS: CALCIUM 8.6 mg/dL (8.5-10.1); GFR 63.8; POTASSIUM 3.2 mmol/L (3.5-5.1)
[2021-07-31] MEDS: VANCOMYCIN PER PHARMACY MC PRN (05:16)
--- NOTE | 2021-07-31 05:17 | NUR ---
Pharmacy Vancomycin Dosing Note S:Consulted to monitor and dose vancomycin started 07/28/21. O:MIRELLA TURNER is a 85 year old F with Sepsis UTI SACRAL ULCER . Height: 5 feet, 2 inches Weight: 56.4 kg [place] Body Weight: 50.10 Adjusted Body Weight: 52.62 Dosing Weight: Actual Other Antibiotics: ZOSYN 2.25 GM Q6H LABS: Last BUN: 14 Last Creatinine: 1 Creatinine Clearance: 34 mL/min Last WBC: 9.7 Last Procalcitonin: Tmax (past 24 hours): 99.2 Microbiology: 07/28 Blood: gram + cocci in pairs and chains suggestive of strep I/O: 1400/425 Drug Levels: Last Trough level: 16.8 on 07/30/21 at 2230 Last dose given 07/30/21 at 2300 Vancomycin Dosing: Loading Dose: 1500 mg x1 Dosing Weight: Actual Target Trough: 15-20 A: Based on: THERAPEUTIC VANCOMYCIN TROUGH, P: 1. CONTINUE Vancomycin 1000 mg IV q24h 2. Follow up Trough level NEEDED. 3. Pharmacy will continue to monitor, follow and adjust therapy as needed. DENISSE TEJEDA [facility], 07/31/21 [id number]
[2021-07-31] MEDS: PIPERACILLIN/TAZOBACTAM 2.25 GM in IV NORMAL SALINE 50ML 50 ML IV SCH ×3 (05:37→12:04)
[2021-07-31] MEDS: HEPARIN for SUB-Q USE 5,000 UNIT/ML VIAL. SQ SCH ×3 (05:47→21:34)
[2021-07-31 07:00] VITALS: BP 116/63
[2021-07-31] MEDS: FERROUS SULFATE 325 MG TABLET. PO SCH (08:00)
[2021-07-31] MEDS: INSULIN LISPRO 300 UNITS/3 ML VIAL. SQ SCH ×3 (08:00→17:00)
--- NOTE | 2021-07-31 08:57 | PDOC ---
[employer] PROGRESS NOTE Date of Service DOS: DATE: 07/31/21 TIME: 08:56 Chief Complaint Chief Complaint Encephalopathy Sepsis Dementia Diabetes Iron deficiency anemia Prior pulmonary embolism - was on eliquis CHELSY T9 vertebral body fracture Constipation Thyroid nodule - very large on right with tracheal deviation. Sacral decub Right elbow decub Heel ulcers senior living resident Enterococcus UTI - on vancomycin FEN - Liquid diet PPX - heparin CODE - DNR/DNI Dispo - inpatient. DPOA is [facility] Man. History of Present Illness History of Present Illness 07/29: Patient seen and examined bedside. She is currently lying on her left side resting with no apparent distress. Heel has clean dry intact dressing. Has D5 LR hanging. Has Zosyn hanging. Up to bedside drainage 07/30: Transferred from ICU. Hemoglobin 6.7 transfusion 1 unit PRBC given. Wound examined and wound VAC recommendations plastic surgery given her advanced dementia this is more appropriate. I discussed with speech-language pathology patient is holding onto solid foods and can have a liquid diet she does forget cues for swallowing and also may have tracheal interference with her large th yroid mass. I discussed with her grandson Antonino who wants to discuss with the rest of the family before looking to palliative care or hospice but this is something he is interested in. Discussed having a DO NOT RESUSCITATE order to which he is amenable. 07/31: Blood cultures returned positive for Enterococcus faecalis as well as urine culture. Has been on IV vancomycin. She is minimally interactive but is opening her eyes, drinking fluids and liquid diet with prompting. Tolerating frequent turning well wound VAC with no leaks. Hb 8 posttransfusion K3.2 Vitals/I&O Vitals/I&O: Vital Signs Date Time Temp Pulse Resp B/P (MAP) Pulse Ox O2 Delivery O2 Flow Rate FiO2 07/30/21 20:10 Room Air 07/30/21 19:17 98.6 100 20 141/75 (97) 98 98.6 I & O 07/30/21 07/30/21 07/31/21 15:00 23:00 07:00 Intake Total 400 ml 0 ml Output Total 150 ml Balance 400 ml -150 ml Physical Exam General: No acute distress Heart: Regular rate Lungs: Clear Abdomen: Soft Skin: Other (Stage IV sacral decubitus ulcer measuring approximately 4 x 2 x 1.5 cm with thin amount of tissue overlying the bone. There is stool in the wound. No surrounding cellulitis. Moderate slough along the edges and mild to moderate at the base.) Labs Labs: Laboratory Tests Test 07/30/21 11:56 07/30/21 18:36 07/30/21 21:16 07/30/21 22:30 Glucose (Fingerstick) 71 mg/dL (70-99) 95 mg/dL (70-99) 118 mg/dL (70-99) Vancomycin Level Trough 16.8 mcg/mL (10.0-20.0) Vancomycin Last Dose Date Vancomycin Last Dose Time Test 07/31/21 03:35 07/31/21 07:59 White Blood Count 8.6 x10^3/uL (4.0-11.0) Red Blood Count 3.14 x10^6/uL (3.50-5.40) Hemoglobin 8.0 g/dL (12.0-15.5) Hematocrit 25.0 % (36.0-47.0) Mean Corpuscular Volume 79 fL (79-100) Mean Corpuscular Hemoglobin 26 pg (25-35) Mean Corpuscular Hemoglobin Concent 32 g/dL (31-37) Red Cell Distribution Width 23.0 % (11.5-14.5) Platelet Count 332 x10^3/uL (140-400) Neutrophils (%) (Auto) 81 % (31-73) Lymphocytes (%) (Auto) 11 % (24-48) Monocytes (%) (Auto) 5 % (0-9) Eosinophils (%) (Auto) 2 % (0-3) Basophils (%) (Auto) 1 % (0-3) Neutrophils # (Auto) 7.0 x10^3/uL (1.8-7.7) Lymphocytes # (Auto) 1.0 x10^3/uL (1.0-4.8) Monocytes # (Auto) 0.4 x10^3/uL (0.0-1.1) Eosinophils # (Auto) 0.2 x10^3/uL (0.0-0.7) Basophils # (Auto) 0.1 x10^3/uL (0.0-0.2) Sodium Level 142 mmol/L (136-145) Potassium Level 3.2 mmol/L (3.5-5.1) Chloride Level 111 mmol/L (98-107) Carbon Dioxide Level 22 mmol/L (21-32) Anion Gap 9 (6-14) Blood Urea Nitrogen 14 mg/dL (7-20) Creatinine 1.0 mg/dL (0.6-1.0) Estimated GFR (Cockcroft-Gault) 63.8 Glucose Level 79 mg/dL (70-99) Calcium Level 8.6 mg/dL (8.5-10.1) Glucose (Fingerstick) 85 mg/dL (70-99) Assessment and Plan Assessmemt and Plan Problems Medical Problems: (1) Open wound of sacroiliac region Status: Acute (2) Septic shock Status: Acute Comment Review of Relevant I have reviewed the following items anand (where applicable) has been applied. Justifications for Admission Other Justification ADRIANNA DORANTES MD Jul 31, 2021 08:57
[2021-07-31] MEDS: SODIUM HYPOCHLORITE 0.125% 473 ML BOTTLE. TP SCH ×2 (09:00→19:49)
[2021-07-31 11:00] VITALS: BP 122/66
[2021-07-31] MEDS ORDERED: POTASSIUM BICARB 20 MEQ EFFERVESCENT TABLET. PO ONE (11:45)
--- NOTE | 2021-07-31 13:22 | NUR ---
SS following up with discharge planning. SS reviewed pt chart and discussed with pt RN. Pt is LTC resident from [facility], ; fax [phone]. COVID19 negative. Pt is currently on room air. Pt on IV Vancomycin. Physician discussed goals of care with pt's family and pt's family discussing goals of care together to make decision regarding palliative care vs. hospice. SS will continue to follow for discharge planning.
[2021-07-31 15:00] VITALS: BP 128/73
[2021-07-31 19:00] VITALS: BP 129/70
[2021-07-31] MEDS: INSULIN GLARGINE SYRINGE. SQ SCH (21:00)
[2021-07-31] MEDS: VANCOMYCIN 1 GM in IV NORMAL SALINE 250ML 250 ML IV SCH (21:34)
[2021-07-31 23:00] VITALS: BP 145/71
--- NOTE | 2021-08-01 00:52 | CONS ---
DATE OF CONSULTATION: 07/31/2021 REQUESTING PHYSICIAN: Todd Spencer MD REASON FOR CONSULTATION: Enterococcal bacteremia. HISTORY OF PRESENT ILLNESS: This is an 85-year-old -[place] female who has been taken care of by family at home, was brought in because of the fever and altered mental status. The patient is demented. She is not able to provide any meaningful information. The patient was found to have a sacral decubitus, urinary tract infection with Enterococcus and sepsis with bacteremia with Enterococcus. The patient also had a thyroid mass and she is not able to swallow. The patient is currently receiving Zosyn and vancomycin. The patient is awake. She says she is fine, but she has advanced dementia. PAST MEDICAL HISTORY: Positive for dementia, diabetes mellitus, anemia, history of pulmonary embolism. The patient is a total care, sacral decubitus. SOCIAL HISTORY: Negative for smoking, alcohol, drug use. The patient is taken care of by family at home. ALLERGIES: No known drug allergies. CURRENT MEDICATIONS: Reviewed. REVIEW OF SYSTEMS: As in HPI. All other systems reviewed are negative. PHYSICAL EXAMINATION: GENERAL: Awake female, not in distress. VITAL SIGNS: Temperature 98.8, pulse 81, respirations 20, blood pressure 122/66. HEENT: Both pupils are round and reacting. No conjunctival lesion. No lesion in the mouth. NECK: Supple. No JVP, no lymphadenopathy. LUNGS: Clear. HEART: S1, S2, regular. ABDOMEN: Soft, nontender, no organomegaly. EXTREMITIES: No edema, cyanosis. SKIN: Unremarkable. The patient does have a large deep sacral decubitus. NEUROLOGIC: The patient is demented. She does move her extremities, but not much meaningful communication can be done. LABORATORY DATA: White count is normal, down from 11.9. BUN and creatinine are normal. Urinalysis showed 5-10 wbc's. COVID negative. Blood culture is positive with pansensitive Enterococcus. Blood culture, Enterococcus, susceptibilities are pending. IMPRESSION: 1. Enterococcal urinary tract infection with bacteremia. 2. Urinary tract infection with sepsis. 3. Encephalopathy. 4. Dementia. 5. Leukocytosis. 6. Fever. RECOMMENDATIONS: Continue Zosyn, discontinue vancomycin. Supportive care. Comfort care or hospice in the works. Discussed with Dr. Spencer. Thank you very much, Dr. Spencer, for giving me opportunity to participate in this patient's care. RUTH/GIA/ANAYELI DR: RUTH/vishnu TID: [id number]
[2021-08-01] MEDS ORDERED: diphenhydrAMINE HCL 25 MG CAPSULE PO PRN (02:45)
[2021-08-01 05:55] LABS: BASO # 0.1 x10^3/uL (0.0-0.2); BASO % 1 % (0-3); EOS # 0.2 x10^3/uL (0.0-0.7); EOS % 4 % (0-3); HEMOGLOBIN 8.4 g/dL (12.0-15.5); LYMPH # 1.2 x10^3/uL (1.0-4.8); LYMPH % 21 % (24-48); MEAN CORPUSCULAR HEMOGLOBIN 26 pg (25-35); MEAN CORPUSCULAR HGB CONC 32 g/dL (31-37); MEAN CORPUSCULAR VOLUME 80 fL (79-100); MONO # 0.3 x10^3/uL (0.0-1.1); MONO % 6 % (0-9); NEUT % 69 % (31-73); PLATELET COUNT 320 x10^3/uL (140-400); RED BLOOD COUNT 3.27 x10^6/uL (3.50-5.40); WHITE BLOOD COUNT 5.8 x10^3/uL (4.0-11.0)
[2021-08-01] MEDS: HEPARIN for SUB-Q USE 5,000 UNIT/ML VIAL. SQ SCH ×3 (06:18→21:54)
[2021-08-01 06:26] LABS: ALBUMIN 1.4 g/dL (3.4-5.0); ALBUMIN/GLOBULIN RATIO 0.3 (1.0-1.7); CALCIUM 9.4 mg/dL (8.5-10.1); CREATININE 0.9 mg/dL (0.6-1.0); POTASSIUM 3.5 mmol/L (3.5-5.1); TOTAL BILIRUBIN 0.4 mg/dL (0.2-1.0); TOTAL PROTEIN 6.3 g/dL (6.4-8.2)
[2021-08-01 07:00] VITALS: BP 137/70
[2021-08-01] MEDS: INSULIN LISPRO 300 UNITS/3 ML VIAL. SQ SCH ×3 (08:00→17:00)
[2021-08-01] MEDS: FERROUS SULFATE 325 MG TABLET. PO SCH (08:00)
[2021-08-01] MEDS: SODIUM HYPOCHLORITE 0.125% 473 ML BOTTLE. TP SCH ×2 (08:25→21:47)
[2021-08-01] MEDS: DICLOFENAC SODIUM 1% TOPICAL GEL 100GM TUBE. TP SCH ×2 (08:57→21:51)
--- NOTE | 2021-08-01 09:06 | PDOC ---
Infectious Disease Note Subjective Subjective Patient is sleepy arousable ROS ROS No nausea vomiting diarrhea chest pain shortness of Vital Sign Vital Signs Vital Signs Date Time Temp Pulse Resp B/P (MAP) Pulse Ox O2 Delivery O2 Flow Rate FiO2 08/01/21 07:00 98.4 94 16 137/70 (92) 97 98.4 07/31/21 23:00 Room Air Physical Exam PHYSICAL EXAM GENERAL: Awake female, not in distress. VITAL SIGNS: Stable HEENT: Both pupils are round and reacting. No conjunctival lesion. No lesion in the mouth. NECK: Supple. No JVP, no lymphadenopathy. LUNGS: Clear. HEART: S1, S2, regular. ABDOMEN: Soft, nontender, no organomegaly. EXTREMITIES: No edema, cyanosis. SKIN: Unremarkable. The patient does have a large deep sacral decubitus. NEUROLOGIC: The patient is demented. She does move her extremities, but not much meaningful communication can be done. Labs Lab Laboratory Tests Test 07/31/21 11:06 07/31/21 17:02 07/31/21 21:09 08/01/21 04:25 Glucose (Fingerstick) 78 mg/dL (70-99) 92 mg/dL (70-99) 85 mg/dL (70-99) White Blood Count 5.8 x10^3/uL (4.0-11.0) Red Blood Count 3.27 x10^6/uL (3.50-5.40) Hemoglobin 8.4 g/dL (12.0-15.5) Hematocrit 26.0 % (36.0-47.0) Mean Corpuscular Volume 80 fL (79-100) Mean Corpuscular Hemoglobin 26 pg (25-35) Mean Corpuscular Hemoglobin Concent 32 g/dL (31-37) Red Cell Distribution Width 23.0 % (11.5-14.5) Platelet Count 320 x10^3/uL (140-400) Neutrophils (%) (Auto) 69 % (31-73) Lymphocytes (%) (Auto) 21 % (24-48) Monocytes (%) (Auto) 6 % (0-9) Eosinophils (%) (Auto) 4 % (0-3) Basophils (%) (Auto) 1 % (0-3) Neutrophils # (Auto) 4.0 x10^3/uL (1.8-7.7) Lymphocytes # (Auto) 1.2 x10^3/uL (1.0-4.8) Monocytes # (Auto) 0.3 x10^3/uL (0.0-1.1) Eosinophils # (Auto) 0.2 x10^3/uL (0.0-0.7) Basophils # (Auto) 0.1 x10^3/uL (0.0-0.2) Sodium Level 145 mmol/L (136-145) Potassium Level 3.5 mmol/L (3.5-5.1) Chloride Level 114 mmol/L (98-107) Carbon Dioxide Level 22 mmol/L (21-32) Anion Gap 9 (6-14) Blood Urea Nitrogen 12 mg/dL (7-20) Creatinine 0.9 mg/dL (0.6-1.0) Estimated GFR (Cockcroft-Gault) 72.0 BUN/Creatinine Ratio 13 (6-20) Glucose Level 70 mg/dL (70-99) Calcium Level 9.4 mg/dL (8.5-10.1) Total Bilirubin 0.4 mg/dL (0.2-1.0) Aspartate Amino Transf (AST/SGOT) 17 U/L (15-37) Alanine Aminotransferase (ALT/SGPT) 17 U/L (14-59) Alkaline Phosphatase 60 U/L (46-116) Creatine Kinase 34 U/L (26-192) Total Protein 6.3 g/dL (6.4-8.2) Albumin 1.4 g/dL (3.4-5.0) Albumin/Globulin Ratio 0.3 (1.0-1.7) Test 08/01/21 07:51 Glucose (Fingerstick) 70 mg/dL (70-99) Micro Microbiology 07/29/21 Blood Culture - Preliminary, Resulted NO GROWTH AFTER 2 DAYS 07/28/21 Urine Culture - Final, Complete Enterococcus Faecalis Objective Assessment IMPRESSION: 1. Enterococcal urinary tract infection with bacteremia. 2. Urinary tract infection with sepsis. 3. Encephalopathy. 4. Dementia. 5. Leukocytosis. 6. Fever. Plan Plan of Care Change antibiotics to ampicillin and Rocephin Supportive care Overall prognosis poor Palliative care in the works KENTON LYNCH MD Aug 01, 2021 09:06
[2021-08-01] MEDS: cefTRIAXone IV Push 2 GM VIAL. IVP SCH (09:57)
--- NOTE | 2021-08-01 10:53 | PDOC ---
[employer] PROGRESS NOTE Date of Service DOS: DATE: 08/01/21 TIME: 10:51 Chief Complaint Chief Complaint Encephalopathy Sepsis Dementia Diabetes Iron deficiency anemia Prior pulmonary embolism - was on eliquis CHELSY - vasomotor nephropathy, resolved Severe protein calorie malnutrition - progression of dementia and partial compression by thyroid nodule, liquid diet/soft diet and supplements helping T9 vertebral body fracture Constipation Thyroid nodule - very large on right with tracheal deviation. Sacral decub Right elbow decub Heel ulcers senior care resident Enterococcus UTI and enterococcus bacteremia - on vancomycin --> rocephin + ampicillin 07/31/21 FEN - Liquid diet PPX - heparin CODE - DNR/DNI Dispo - inpatient. DPOA is Hansel Man. History of Present Illness History of Present Illness 07/29: Patient seen and examined bedside. She is currently lying on her left side resting with no apparent distress. Heel has clean dry intact dressing. Has D5 LR hanging. Has Zosyn hanging. Up to bedside drainage 07/30: Transferred from ICU. Hemoglobin 6.7 transfusion 1 unit PRBC given. Wound examined and wound VAC recommendations plastic surgery given her advanced dementia this is more appropriate. I discussed with speech-language pathology patient is holding onto solid foods and can have a liquid diet she does forget cues for swallowing and also may have tracheal interference with her large thyroid mass. I discussed with her grandson Antonino who wants to discuss with the rest of the family before looking to palliative care or hospice but this is something he is interested in. Discussed having a DO NOT RESUSCITATE order to which he is amenable. 07/31: Blood cultures returned positive for Enterococcus faecalis as well as urine culture. Has been on IV vancomycin. She is minimally interactive but is opening her eyes, drinking fluids and liquid diet with prompting. Tolerating frequent turning well wound VAC with no leaks. Hb 8 posttransfusion K3.2 08/01: Hb 8.4, K3.5. More awake today is conversant pleasantly confused. Very weak. Changed to IV ampicillin Rocephin per ID consultation. Plan for wound VAC change today gomez would like to continue current care Vitals/I&O Vitals/I&O: Vital Signs Date Time Temp Pulse Resp B/P (MAP) Pulse Ox O2 Delivery O2 Flow Rate FiO2 08/01/21 07:00 98.4 94 16 137/70 (92) 97 98.4 07/31/21 23:00 Room Air I & O 07/31/21 07/31/21 08/01/21 15:00 23:00 07:00 Intake Total 50 ml Balance 50 ml Physical Exam Physical Exam: GENERAL: Awake female, not in distress. VITAL SIGNS: Stable HEENT: Both pupils are round and reacting. No conjunctival lesion. No lesion in the mouth. NECK: Supple. No JVP, no lymphadenopathy. LUNGS: Clear. HEART: S1, S2, regular. ABDOMEN: Soft, nontender, no organomegaly. EXTREMITIES: No edema, cyanosis. SKIN: Unremarkable. The patient does have a large deep sacral decubitus. NEUROLOGIC: The patient is demented. She does move her extremities, but not much meaningful communication can be done. General: No acute distress Heart: Regular rate Lungs: Clear Abdomen: Soft Skin: Other (Stage IV sacral decubitus ulcer measuring approximately 4 x 2 x 1.5 cm with thin amount of tissue overlying the bone. There is stool in the wound. No surrounding cellulitis. Moderate slough along the edges and mild to moderate at the base.) Labs Labs: Laboratory Tests Test 07/31/21 11:06 07/31/21 17:02 07/31/21 21:09 08/01/21 04:25 Glucose (Fingerstick) 78 mg/dL (70-99) 92 mg/dL (70-99) 85 mg/dL (70-99) White Blood Count 5.8 x10^3/uL (4.0-11.0) Red Blood Count 3.27 x10^6/uL (3.50-5.40) Hemoglobin 8.4 g/dL (12.0-15.5) Hematocrit 26.0 % (36.0-47.0) Mean Corpuscular Volume 80 fL (79-100) Mean Corpuscular Hemoglobin 26 pg (25-35) Mean Corpuscular Hemoglobin Concent 32 g/dL (31-37) Red Cell Distribution Width 23.0 % (11.5-14.5) Platelet Count 320 x10^3/uL (140-400) Neutrophils (%) (Auto) 69 % (31-73) Lymphocytes (%) (Auto) 21 % (24-48) Monocytes (%) (Auto) 6 % (0-9) Eosinophils (%) (Auto) 4 % (0-3) Basophils (%) (Auto) 1 % (0-3) Neutrophils # (Auto) 4.0 x10^3/uL (1.8-7.7) Lymphocytes # (Auto) 1.2 x10^3/uL (1.0-4.8) Monocytes # (Auto) 0.3 x10^3/uL (0.0-1.1) Eosinophils # (Auto) 0.2 x10^3/uL (0.0-0.7) Basophils # (Auto) 0.1 x10^3/uL (0.0-0.2) Sodium Level 145 mmol/L (136-145) Potassium Level 3.5 mmol/L (3.5-5.1) Chloride Level 114 mmol/L (98-107) Carbon Dioxide Level 22 mmol/L (21-32) Anion Gap 9 (6-14) Blood Urea Nitrogen 12 mg/dL (7-20) Creatinine 0.9 mg/dL (0.6-1.0) Estimated GFR (Cockcroft-Gault) 72.0 BUN/Creatinine Ratio 13 (6-20) Glucose Level 70 mg/dL (70-99) Calcium Level 9.4 mg/dL (8.5-10.1) Total Bilirubin 0.4 mg/dL (0.2-1.0) Aspartate Amino Transf (AST/SGOT) 17 U/L (15-37) Alanine Aminotransferase (ALT/SGPT) 17 U/L (14-59) Alkaline Phosphatase 60 U/L (46-116) Creatine Kinase 34 U/L (26-192) Total Protein 6.3 g/dL (6.4-8.2) Albumin 1.4 g/dL (3.4-5.0) Albumin/Globulin Ratio 0.3 (1.0-1.7) Test 08/01/21 07:51 Glucose (Fingerstick) 70 mg/dL (70-99) Assessment and Plan Assessmemt and Plan Problems Medical Problems: (1) Open wound of sacroiliac region Status: Acute (2) Septic shock Status: Acute Comment Review of Relevant I have reviewed the following items anand (where applicable) has been applied. Medications: Current Medications Medications (Trade) Dose Ordered Sig/Leandra Route PRN Reason Start Time Stop Time Status Last Admin Dose Admin Potassium Bicarbonate (Potassium Effervescent Tablet) 40 meq 1X ONCE PO 07/31/21 11:45 07/31/21 11:46 DC 07/31/21 12:03 Ceftriaxone Sodium (Rocephin) 2 gm Q24H IVP 08/01/21 10:00 08/01/21 09:57 Justifications for Admission Other Justification ADRIANNA DORANTES MD Aug 01, 2021 10:53
[2021-08-01 11:00] VITALS: BP 131/77
--- NOTE | 2021-08-01 12:05 | NUR ---
Wound/Ostomy Care Wound Type/Assessment: Wound care follow up for vac dressing change on coccyx and wounds to bilateral heels. Pt has slough covered DFU's to bilateral heels. Coccyx wound is slough and eschar covered. Treatment Recommendations/Plan: Veraflo vac placed to coccyx with 1/4 strength Dakins flush 24 ml for 5 min every 2 hours. Change MWF Left heel- Honey, Xeroform, and foam, change every 2-3 days. Right heel- Xeroform and foam, change 2x weekly. Education provided: Pt unable to be educated due to mental status Offloading surface/device: TQ2H, P500 bed, heel medix boots Recommended Referrals/Tests: defer to surgery Discharge Recommendations for dressings: see above
[2021-08-01] MEDS ORDERED: SODIUM HYPOCHLORITE 0.125% 473 ML BOTTLE. TP PRN (12:15)
[2021-08-01] MEDS: AMPICILLIN SODIUM 2 GM in IV NORMAL SALINE 100ML 100 ML IV SCH ×2 (12:31→17:48)
--- NOTE | 2021-08-01 12:55 | NUR ---
SW following. Discussed with RN, family discussing palliative vs hospice care. Pt needing IV abx for UTI before transitioning to hospice if that is the plan for discharge. Updates faxed to [facility]. SW will continue to follow.
[2021-08-01 15:00] VITALS: BP 150/76
[2021-08-01 19:00] VITALS: BP 150/74
[2021-08-01] MEDS: INSULIN GLARGINE SYRINGE. SQ SCH (21:00)
[2021-08-02] MEDS: AMPICILLIN SODIUM 2 GM in IV NORMAL SALINE 100ML 100 ML IV SCH ×3 (01:39→12:36)
[2021-08-02 05:14] LABS: BASO % 0 % (0-3); EOS # 0.3 x10^3/uL (0.0-0.7); EOS % 4 % (0-3); HEMATOCRIT 26.6 % (36.0-47.0); HEMOGLOBIN 8.6 g/dL (12.0-15.5); LYMPH # 1.4 x10^3/uL (1.0-4.8); LYMPH % 16 % (24-48); MEAN CORPUSCULAR HEMOGLOBIN 26 pg (25-35); MEAN CORPUSCULAR HGB CONC 32 g/dL (31-37); MEAN CORPUSCULAR VOLUME 82 fL (79-100); MONO # 0.5 x10^3/uL (0.0-1.1); MONO % 6 % (0-9); NEUT # 6.7 x10^3/uL (1.8-7.7); NEUT % 75 % (31-73); PLATELET COUNT 346 x10^3/uL (140-400); RED BLOOD COUNT 3.26 x10^6/uL (3.50-5.40); RED CELL DISTRIBUTION WIDTH 23.4 % (11.5-14.5)
[2021-08-02 05:36] LABS: ALBUMIN 1.3 g/dL (3.4-5.0); ALBUMIN/GLOBULIN RATIO 0.3 (1.0-1.7); CALCIUM 9.2 mg/dL (8.5-10.1); GFR 63.8; POTASSIUM 3.8 mmol/L (3.5-5.1); TOTAL BILIRUBIN 0.3 mg/dL (0.2-1.0); TOTAL PROTEIN 6.5 g/dL (6.4-8.2)
[2021-08-02] MEDS: HEPARIN for SUB-Q USE 5,000 UNIT/ML VIAL. SQ SCH ×3 (06:11→20:08)
[2021-08-02 07:00] VITALS: BP 129/66
[2021-08-02] MEDS: FERROUS SULFATE 325 MG TABLET. PO SCH ×2 (08:00→09:23)
[2021-08-02] MEDS: INSULIN LISPRO 300 UNITS/3 ML VIAL. SQ SCH ×3 (08:00→16:57)
--- NOTE | 2021-08-02 08:16 | PDOC ---
Infectious Disease Note Subjective Subjective Patient is sleepy arousable ROS ROS No nausea vomiting diarrhea Vital Sign Vital Signs Vital Signs Date Time Temp Pulse Resp B/P (MAP) Pulse Ox O2 Delivery O2 Flow Rate FiO2 08/02/21 07:00 97.7 81 20 129/66 (87) 97 Room Air 97.7 Physical Exam PHYSICAL EXAM GENERAL: Awake female, not in distress. VITAL SIGNS: Stable HEENT: Both pupils are round and reacting. No conjunctival lesion. No lesion in the mouth. NECK: Supple. No JVP, no lymphadenopathy. LUNGS: Clear. HEART: S1, S2, regular. ABDOMEN: Soft, nontender, no organomegaly. EXTREMITIES: No edema, cyanosis. SKIN: Unremarkable. The patient does have a large deep sacral decubitus. NEUROLOGIC: The patient is demented. She does move her extremities, but not much meaningful communication can be done. Labs Lab Laboratory Tests Test 08/01/21 11:53 08/01/21 17:10 08/01/21 20:34 08/02/21 04:20 Glucose (Fingerstick) 115 mg/dL (70-99) 145 mg/dL (70-99) 122 mg/dL (70-99) White Blood Count 9.0 x10^3/uL (4.0-11.0) Red Blood Count 3.26 x10^6/uL (3.50-5.40) Hemoglobin 8.6 g/dL (12.0-15.5) Hematocrit 26.6 % (36.0-47.0) Mean Corpuscular Volume 82 fL (79-100) Mean Corpuscular Hemoglobin 26 pg (25-35) Mean Corpuscular Hemoglobin Concent 32 g/dL (31-37) Red Cell Distribution Width 23.4 % (11.5-14.5) Platelet Count 346 x10^3/uL (140-400) Neutrophils (%) (Auto) 75 % (31-73) Lymphocytes (%) (Auto) 16 % (24-48) Monocytes (%) (Auto) 6 % (0-9) Eosinophils (%) (Auto) 4 % (0-3) Basophils (%) (Auto) 0 % (0-3) Neutrophils # (Auto) 6.7 x10^3/uL (1.8-7.7) Lymphocytes # (Auto) 1.4 x10^3/uL (1.0-4.8) Monocytes # (Auto) 0.5 x10^3/uL (0.0-1.1) Eosinophils # (Auto) 0.3 x10^3/uL (0.0-0.7) Basophils # (Auto) 0.0 x10^3/uL (0.0-0.2) Sodium Level 145 mmol/L (136-145) Potassium Level 3.8 mmol/L (3.5-5.1) Chloride Level 113 mmol/L (98-107) Carbon Dioxide Level 21 mmol/L (21-32) Anion Gap 11 (6-14) Blood Urea Nitrogen 12 mg/dL (7-20) Creatinine 1.0 mg/dL (0.6-1.0) Estimated GFR (Cockcroft-Gault) 63.8 BUN/Creatinine Ratio 12 (6-20) Glucose Level 148 mg/dL (70-99) Calcium Level 9.2 mg/dL (8.5-10.1) Total Bilirubin 0.3 mg/dL (0.2-1.0) Aspartate Amino Transf (AST/SGOT) 37 U/L (15-37) Alanine Aminotransferase (ALT/SGPT) 15 U/L (14-59) Alkaline Phosphatase 62 U/L (46-116) Total Protein 6.5 g/dL (6.4-8.2) Albumin 1.3 g/dL (3.4-5.0) Albumin/Globulin Ratio 0.3 (1.0-1.7) Test 08/02/21 07:37 Glucose (Fingerstick) 107 mg/dL (70-99) Micro Microbiology 07/29/21 Blood Culture - Preliminary, Resulted NO GROWTH AFTER 2 DAYS 07/28/21 Urine Culture - Final, Complete Enterococcus Faecalis Objective Assessment IMPRESSION: 1. Enterococcal urinary tract infection with bacteremia. 2. Urinary tract infection with sepsis. 3. Encephalopathy. 4. Dementia. 5. Leukocytosis. 6. Fever. Plan Plan of Care ampicillin and Rocephin Supportive care Overall prognosis poor Palliative care in the works KENTON LYNCH MD Aug 02, 2021 08:16
--- NOTE | 2021-08-02 08:43 | PDOC ---
[employer] PROGRESS NOTE Date of Service DOS: DATE: 08/02/21 TIME: 08:41 Chief Complaint Chief Complaint Encephalopathy Sepsis Dementia Diabetes Iron deficiency anemia Prior pulmonary embolism - was on eliquis CHELSY - vasomotor nephropathy, resolved Severe protein calorie malnutrition - progression of dementia and partial compression by thyroid nodule, liquid diet/soft diet and supplements helping T9 vertebral body fracture Constipation Thyroid nodule - very large on right with tracheal deviation. Sacral decub Right elbow decub Heel ulcers [facility] resident Enterococcus UTI and enterococcus bacteremia - on vancomycin --> rocephin + ampicillin 07/31/21 FEN - Liquid diet PPX - heparin CODE - DNR/DNI Dispo - inpatient. DPOA is Hansel Man. History of Present Illness History of Present Illness Ms Martinez is an 85 year old female w/ PMHx alzheimer dementia, DM2, iron deficiency anemia, prior pulmonary embolism on eliquis who is brought into ED by EMS for fevers and altered mental status from her SNF. Patient initially not verbally responsive, no history is obtained from her, it is from medical records. She does have a bowel movement during examination. Right elbow and gluteal area with open wound. Initially was not very responsive vitals low blood pressure responsive to fluid bolus started on empiric vancomycin and Zosyn by ED after cultures obtained. WBC 9.7, Hb 7.3, platelets 408, INR 2.1, NA 139, K3.7, BUN 24, CR 1.4, glucose 171, lactic acid 3.3, calcium 8.7, phosphorus 2.4, magnesium 1.7, bilirubin 0.7, AST 33, ALT 18, alkaline phosphatase 64, CRP 115.5, NT proBNP 3605, albumin 1.6, lipase 55, urinalysis with moderate leuk esterase CT chest/abdomen/pelvis with T9 fracture, decubitus ulcer over sacram and coccyx, large stool burden with possible stercoral colitis and large right thyroid lobe with mass effect. Admitted for further care. 07/29: She is currently lying on her left side resting with no apparent distress. Heel has clean dry intact dressing. Has D5 LR hanging. Has Zosyn hanging. Up to bedside drainage 07/30: Transferred from ICU. Hemoglobin 6.7 transfusion 1 unit PRBC given. Wound examined and wound VAC recommendations plastic surgery given her advanced dementia this is more appropriate. I discussed with speech-language pathology patient is holding onto solid foods and can have a liquid diet she does forget cues for swallowing and also may have tracheal interference with her large thyroid mass. I discussed with her grandson Antonino who wants to discuss with the rest of the family before looking to palliative care or hospice but this is something he is interested in. Discussed having a DO NOT RESUSCITATE order to which he is amenable. 07/31: Blood cultures returned positive for Enterococcus faecalis as well as urine culture. Has been on IV vancomycin. She is minimally interactive but is opening her eyes, drinking fluids and liquid diet with prompting. Tolerating frequent turning well wound VAC with no leaks. Hb 8 posttransfusion K3.2 08/01: Hb 8.4, K3.5. More awake today is conversant pleasantly confused. Very weak. Changed to IV ampicillin Rocephin per ID consultation. Plan for wound VAC change today grandson would like to continue current care 08/02: Afebrile overnight. Hb stable 8.6. Wound VAC change without event. Pleasantly confused. Requiring 100% feed assistance today. Vitals/I&O Vitals/I&O: Vital Signs Date Time Temp Pulse Resp B/P (MAP) Pulse Ox O2 Delivery O2 Flow Rate FiO2 08/02/21 07:00 97.7 81 20 129/66 (87) 97 Room Air 97.7 I & O 08/01/21 08/01/21 08/02/21 15:00 23:00 07:00 Intake Total 100 ml 200 ml Balance 100 ml 200 ml Physical Exam Physical Exam: GENERAL: Awake female, not in distress. VITAL SIGNS: Stable HEENT: Both pupils are round and reacting. No conjunctival lesion. No lesion in the mouth. NECK: Supple. No JVP, no lymphadenopathy. LUNGS: Clear. HEART: S1, S2, regular. ABDOMEN: Soft, nontender, no organomegaly. EXTREMITIES: No edema, cyanosis. SKIN: Unremarkable. The patient does have a large deep sacral decubitus. NEUROLOGIC: The patient is demented. She does move her extremities, but not much meaningful communication can be done. General: No acute distress Heart: Regular rate Lungs: Clear Abdomen: Soft Skin: Other (Stage IV sacral decubitus ulcer measuring approximately 4 x 2 x 1.5 cm with thin amount of tissue overlying the bone. There is stool in the wound. No surrounding cellulitis. Moderate slough along the edges and mild to moderate at the base.) Labs Labs: Laboratory Tests Test 08/01/21 11:53 08/01/21 17:10 08/01/21 20:34 08/02/21 04:20 Glucose (Fingerstick) 115 mg/dL (70-99) 145 mg/dL (70-99) 122 mg/dL (70-99) White Blood Count 9.0 x10^3/uL (4.0-11.0) Red Blood Count 3.26 x10^6/uL (3.50-5.40) Hemoglobin 8.6 g/dL (12.0-15.5) Hematocrit 26.6 % (36.0-47.0) Mean Corpuscular Volume 82 fL (79-100) Mean Corpuscular Hemoglobin 26 pg (25-35) Mean Corpuscular Hemoglobin Concent 32 g/dL (31-37) Red Cell Distribution Width 23.4 % (11.5-14.5) Platelet Count 346 x10^3/uL (140-400) Neutrophils (%) (Auto) 75 % (31-73) Lymphocytes (%) (Auto) 16 % (24-48) Monocytes (%) (Auto) 6 % (0-9) Eosinophils (%) (Auto) 4 % (0-3) Basophils (%) (Auto) 0 % (0-3) Neutrophils # (Auto) 6.7 x10^3/uL (1.8-7.7) Lymphocytes # (Auto) 1.4 x10^3/uL (1.0-4.8) Monocytes # (Auto) 0.5 x10^3/uL (0.0-1.1) Eosinophils # (Auto) 0.3 x10^3/uL (0.0-0.7) Basophils # (Auto) 0.0 x10^3/uL (0.0-0.2) Sodium Level 145 mmol/L (136-145) Potassium Level 3.8 mmol/L (3.5-5.1) Chloride Level 113 mmol/L (98-107) Carbon Dioxide Level 21 mmol/L (21-32) Anion Gap 11 (6-14) Blood Urea Nitrogen 12 mg/dL (7-20) Creatinine 1.0 mg/dL (0.6-1.0) Estimated GFR (Cockcroft-Gault) 63.8 BUN/Creatinine Ratio 12 (6-20) Glucose Level 148 mg/dL (70-99) Calcium Level 9.2 mg/dL (8.5-10.1) Total Bilirubin 0.3 mg/dL (0.2-1.0) Aspartate Amino Transf (AST/SGOT) 37 U/L (15-37) Alanine Aminotransferase (ALT/SGPT) 15 U/L (14-59) Alkaline Phosphatase 62 U/L (46-116) Total Protein 6.5 g/dL (6.4-8.2) Albumin 1.3 g/dL (3.4-5.0) Albumin/Globulin Ratio 0.3 (1.0-1.7) Test 08/02/21 07:37 Glucose (Fingerstick) 107 mg/dL (70-99) Assessment and Plan Assessmemt and Plan Problems Medical Problems: (1) Open wound of sacroiliac region Status: Acute (2) Septic shock Status: Acute Comment Review of Relevant I have reviewed the following items anand (where applicable) has been applied. Medications: Current Medications Medications (Trade) Dose Ordered Sig/Leandra Route PRN Reason Start Time Stop Time Status Last Admin Dose Admin Ampicillin Sodium 2 gm/Sodium Chloride 100 ml @ 200 mls/hr Q6HRS IV 08/01/21 12:00 08/02/21 13:00 08/02/21 06:10 Ceftriaxone Sodium (Rocephin) 2 gm Q24H IVP 08/01/21 10:00 08/01/21 09:57 Justifications for Admission Other Justification ADRIANNA DORANTES MD Aug 02, 2021 08:43
[2021-08-02] MEDS: DICLOFENAC SODIUM 1% TOPICAL GEL 100GM TUBE. TP SCH ×2 (09:25→20:10)
[2021-08-02] MEDS: SODIUM HYPOCHLORITE 0.125% 473 ML BOTTLE. TP SCH ×2 (09:25→20:10)
[2021-08-02] MEDS: cefTRIAXone IV Push 2 GM VIAL. IVP SCH (09:26)
[2021-08-02 11:00] VITALS: BP 111/70
[2021-08-02 14:55] VITALS: BP 142/67
[2021-08-02] MEDS: AMPICILLIN SODIUM IV SCH ×2 (17:01→23:51)
[2021-08-02] MEDS: DEXTROSE 5% IV SCH ×2 (17:01→23:51)
[2021-08-02 19:00] VITALS: BP 162/77
[2021-08-02] MEDS: INSULIN GLARGINE SYRINGE. SQ SCH (20:50)
[2021-08-03] MEDS: AMPICILLIN SODIUM IV SCH ×3 (05:48→18:10)
[2021-08-03] MEDS: DEXTROSE 5% IV SCH ×3 (05:48→18:10)
[2021-08-03] MEDS: HEPARIN for SUB-Q USE 5,000 UNIT/ML VIAL. SQ SCH ×3 (06:00→20:48)
[2021-08-03 07:00] VITALS: BP 158/85
[2021-08-03 07:17] LABS: BASO % 1 % (0-3); EOS # 0.2 x10^3/uL (0.0-0.7); EOS % 4 % (0-3); HEMATOCRIT 27.2 % (36.0-47.0); HEMOGLOBIN 8.5 g/dL (12.0-15.5); LYMPH # 1.1 x10^3/uL (1.0-4.8); LYMPH % 19 % (24-48); MEAN CORPUSCULAR HEMOGLOBIN 25 pg (25-35); MEAN CORPUSCULAR HGB CONC 31 g/dL (31-37); MEAN CORPUSCULAR VOLUME 80 fL (79-100); MONO # 0.4 x10^3/uL (0.0-1.1); MONO % 7 % (0-9); NEUT % 69 % (31-73); PLATELET COUNT 326 x10^3/uL (140-400); RED BLOOD COUNT 3.41 x10^6/uL (3.50-5.40); RED CELL DISTRIBUTION WIDTH 23.3 % (11.5-14.5); WHITE BLOOD COUNT 5.8 x10^3/uL (4.0-11.0)
[2021-08-03 07:27] LABS: ALBUMIN 1.5 g/dL (3.4-5.0); ALBUMIN/GLOBULIN RATIO 0.3 (1.0-1.7); CALCIUM 9.4 mg/dL (8.5-10.1); CREATININE 0.9 mg/dL (0.6-1.0); POTASSIUM 3.4 mmol/L (3.5-5.1); TOTAL BILIRUBIN 0.2 mg/dL (0.2-1.0)
[2021-08-03] MEDS: INSULIN LISPRO 300 UNITS/3 ML VIAL. SQ SCH ×3 (08:00→18:10)
[2021-08-03] MEDS: FERROUS SULFATE 325 MG TABLET. PO SCH (08:00)
--- NOTE | 2021-08-03 08:11 | PDOC ---
Infectious Disease Note Subjective Subjective Patient is awake says she is okay ROS ROS No nausea vomiting diarrhea Vital Sign Vital Signs Vital Signs Date Time Temp Pulse Resp B/P (MAP) Pulse Ox O2 Delivery O2 Flow Rate FiO2 08/03/21 03:56 Room Air 08/02/21 19:00 97.7 89 18 162/77 (105) 97 97.7 Physical Exam PHYSICAL EXAM GENERAL: Awake female, not in distress. VITAL SIGNS: Stable HEENT: Both pupils are round and reacting. No conjunctival lesion. No lesion in the mouth. NECK: Supple. No JVP, no lymphadenopathy. LUNGS: Clear. HEART: S1, S2, regular. ABDOMEN: Soft, nontender, no organomegaly. EXTREMITIES: No edema, cyanosis. SKIN: Unremarkable. The patient does have a large deep sacral decubitus. NEUROLOGIC: The patient is demented. She does move her extremities, but not much meaningful communication can be done. Labs Lab Laboratory Tests Test 08/02/21 11:02 08/02/21 16:46 08/02/21 20:39 08/03/21 05:30 Glucose (Fingerstick) 97 mg/dL (70-99) 142 mg/dL (70-99) 112 mg/dL (70-99) White Blood Count 5.8 x10^3/uL (4.0-11.0) Red Blood Count 3.41 x10^6/uL (3.50-5.40) Hemoglobin 8.5 g/dL (12.0-15.5) Hematocrit 27.2 % (36.0-47.0) Mean Corpuscular Volume 80 fL (79-100) Mean Corpuscular Hemoglobin 25 pg (25-35) Mean Corpuscular Hemoglobin Concent 31 g/dL (31-37) Red Cell Distribution Width 23.3 % (11.5-14.5) Platelet Count 326 x10^3/uL (140-400) Neutrophils (%) (Auto) 69 % (31-73) Lymphocytes (%) (Auto) 19 % (24-48) Monocytes (%) (Auto) 7 % (0-9) Eosinophils (%) (Auto) 4 % (0-3) Basophils (%) (Auto) 1 % (0-3) Neutrophils # (Auto) 4.0 x10^3/uL (1.8-7.7) Lymphocytes # (Auto) 1.1 x10^3/uL (1.0-4.8) Monocytes # (Auto) 0.4 x10^3/uL (0.0-1.1) Eosinophils # (Auto) 0.2 x10^3/uL (0.0-0.7) Basophils # (Auto) 0.0 x10^3/uL (0.0-0.2) Sodium Level 147 mmol/L (136-145) Potassium Level 3.4 mmol/L (3.5-5.1) Chloride Level 114 mmol/L (98-107) Carbon Dioxide Level 22 mmol/L (21-32) Anion Gap 11 (6-14) Blood Urea Nitrogen 9 mg/dL (7-20) Creatinine 0.9 mg/dL (0.6-1.0) Estimated GFR (Cockcroft-Gault) 72.0 BUN/Creatinine Ratio 10 (6-20) Glucose Level 89 mg/dL (70-99) Calcium Level 9.4 mg/dL (8.5-10.1) Total Bilirubin 0.2 mg/dL (0.2-1.0) Aspartate Amino Transf (AST/SGOT) 16 U/L (15-37) Alanine Aminotransferase (ALT/SGPT) 12 U/L (14-59) Alkaline Phosphatase 60 U/L (46-116) Total Protein 6.0 g/dL (6.4-8.2) Albumin 1.5 g/dL (3.4-5.0) Albumin/Globulin Ratio 0.3 (1.0-1.7) Micro Microbiology 07/29/21 Blood Culture - Preliminary, Resulted NO GROWTH AFTER 2 DAYS 07/28/21 Urine Culture - Final, Complete Enterococcus Faecalis Objective Assessment IMPRESSION: 1. Enterococcal urinary tract infection with bacteremia. Also coag negative staph from 07/28/21 2. Urinary tract infection with sepsis. 3. Encephalopathy. 4. Dementia. 5. Leukocytosis. 6. Fever. Plan Plan of Care ampicillin and Rocephin Supportive care Overall prognosis poor Palliative care in the works Repeat blood culture negative from 07/31/2021 KENTON LYNCH MD Aug 03, 2021 08:11
[2021-08-03] MEDS: DICLOFENAC SODIUM 1% TOPICAL GEL 100GM TUBE. TP SCH ×2 (09:00→21:03)
[2021-08-03] MEDS: SODIUM HYPOCHLORITE 0.125% 473 ML BOTTLE. TP SCH ×2 (09:36→21:04)
[2021-08-03] MEDS: cefTRIAXone IV Push 2 GM VIAL. IVP SCH (09:38)
[2021-08-03 11:00] VITALS: BP 147/52
--- NOTE | 2021-08-03 12:15 | PDOC ---
[employer] PROGRESS NOTE Date of Service DOS: DATE: 08/03/21 TIME: 12:13 Chief Complaint Chief Complaint Encephalopathy Sepsis Dementia Diabetes Iron deficiency anemia Prior pulmonary embolism - was on eliquis CHELSY - vasomotor nephropathy, resolved Severe protein calorie malnutrition - progression of dementia and partial compression by thyroid nodule, liquid diet/soft diet and supplements helping T9 vertebral body fracture Constipation Thyroid nodule - very large on right with tracheal deviation. Sacral decub Right elbow decub Heel ulcers long-term resident Enterococcus UTI and enterococcus bacteremia - on vancomycin --> rocephin + ampicillin 07/31/21 FEN - Liquid diet PPX - heparin CODE - DNR/DNI Dispo - inpatient. DPOA is Hansel Man. History of Present Illness History of Present Illness 08/03/2021 Patient seen and examined on the medical floor She was sleeping but awoke She appears very frail Has IV ampicillin hanging Is able to talk with 2 word sentences Discussed with RN Chart reviewed Ms Martinez is an 85 year old female w/ PMHx alzheimer dementia, DM2, iron deficiency anemia, prior pulmonary embolism on eliquis who is brought into ED by EMS for fevers and altered mental status from her SNF. Patient initially not verbally responsive, no history is obtained from her, it is from medical records. She does have a bowel movement during examination. Right elbow and gluteal area with open wound. Initially was not very responsive vitals low blood pressure responsive to fluid bolus started on empiric vancomycin and Zosyn by ED after cultures obtained. WBC 9.7, Hb 7.3, platelets 408, INR 2.1, NA 139, K3.7, BUN 24, CR 1.4, glucose 171, lactic acid 3.3, calcium 8.7, phosphorus 2.4, magnesium 1.7, bilirubin 0.7, AST 33, ALT 18, alkaline phosphatase 64, CRP 115.5, NT proBNP 3605, albumin 1.6, lipase 55, urinalysis with moderate leuk esterase CT chest/abdomen/pelvis with T9 fracture, decubitus ulcer over sacram and coccyx, large stool burden with possible stercoral colitis and large right thyroid lobe with mass effect. Admitted for further care. 07/29: She is currently lying on her left side resting with no apparent distress. Heel has clean dry intact dressing. Has D5 LR hanging. Has Zosyn hanging. Up to bedside drainage 07/30: Transferred from ICU. Hemoglobin 6.7 transfusion 1 unit PRBC given. Wound examined and wound VAC recommendations plastic surgery given her advanced dementia this is more appropriate. I discussed with speech-language pathology patient is holding onto solid foods and can have a liquid diet she does forget cues for swallowing and also may have tracheal interference with her large thyroid mass. I discussed with her grandson Antonino who wants to discuss with the rest of the family before looking to palliative care or hospice but this is something he is interested in. Discussed having a DO NOT RESUSCITATE order to which he is amenable. 07/31: Blood cultures returned positive for Enterococcus faecalis as well as urine culture. Has been on IV vancomycin. She is minimally interactive but is opening her eyes, drinking fluids and liquid diet with prompting. Tolerating frequent turning well wound VAC with no leaks. Hb 8 posttransfusion K3.2 08/01: Hb 8.4, K3.5. More awake today is conversant pleasantly confused. Very weak. Changed to IV ampicillin Rocephin per ID consultation. Plan for wound VAC change today grandson would like to continue current care 08/02: Afebrile overnight. Hb stable 8.6. Wound VAC change without event. Pleasantly confused. Requiring 100% feed assistance today. Vitals/I&O Vitals/I&O: Vital Signs Date Time Temp Pulse Resp B/P (MAP) Pulse Ox O2 Delivery O2 Flow Rate FiO2 08/03/21 07:00 99.4 103 20 158/85 (109) 98 Room Air 99.4 I & O 08/02/21 08/02/21 08/03/21 15:00 23:00 07:00 Intake Total 200 ml 100 ml Output Total 250 ml 100 ml 475 ml Balance -50 ml 0 ml -475 ml Physical Exam Physical Exam: GENERAL: Awake female, not in distress. VITAL SIGNS: Stable HEENT: Both pupils are round and reacting. No conjunctival lesion. No lesion in the mouth. NECK: Supple. No JVP, no lymphadenopathy. LUNGS: Clear. HEART: S1, S2, regular. ABDOMEN: Soft, nontender, no organomegaly. EXTREMITIES: No edema, cyanosis. SKIN: Unremarkable. The patient does have a large deep sacral decubitus. NEUROLOGIC: The patient is demented. She does move her extremities, but not much meaningful communication can be done. General: No acute distress Heart: Regular rate Lungs: Clear Abdomen: Soft Skin: Other (Stage IV sacral decubitus ulcer measuring approximately 4 x 2 x 1.5 cm with thin amount of tissue overlying the bone. There is stool in the wound. No surrounding cellulitis. Moderate slough along the edges and mild to moderate at the base.) Labs Labs: Laboratory Tests Test 08/02/21 16:46 08/02/21 20:39 08/03/21 05:30 08/03/21 12:06 Glucose (Fingerstick) 142 mg/dL (70-99) 112 mg/dL (70-99) 161 mg/dL (70-99) White Blood Count 5.8 x10^3/uL (4.0-11.0) Red Blood Count 3.41 x10^6/uL (3.50-5.40) Hemoglobin 8.5 g/dL (12.0-15.5) Hematocrit 27.2 % (36.0-47.0) Mean Corpuscular Volume 80 fL (79-100) Mean Corpuscular Hemoglobin 25 pg (25-35) Mean Corpuscular Hemoglobin Concent 31 g/dL (31-37) Red Cell Distribution Width 23.3 % (11.5-14.5) Platelet Count 326 x10^3/uL (140-400) Neutrophils (%) (Auto) 69 % (31-73) Lymphocytes (%) (Auto) 19 % (24-48) Monocytes (%) (Auto) 7 % (0-9) Eosinophils (%) (Auto) 4 % (0-3) Basophils (%) (Auto) 1 % (0-3) Neutrophils # (Auto) 4.0 x10^3/uL (1.8-7.7) Lymphocytes # (Auto) 1.1 x10^3/uL (1.0-4.8) Monocytes # (Auto) 0.4 x10^3/uL (0.0-1.1) Eosinophils # (Auto) 0.2 x10^3/uL (0.0-0.7) Basophils # (Auto) 0.0 x10^3/uL (0.0-0.2) Sodium Level 147 mmol/L (136-145) Potassium Level 3.4 mmol/L (3.5-5.1) Chloride Level 114 mmol/L (98-107) Carbon Dioxide Level 22 mmol/L (21-32) Anion Gap 11 (6-14) Blood Urea Nitrogen 9 mg/dL (7-20) Creatinine 0.9 mg/dL (0.6-1.0) Estimated GFR (Cockcroft-Gault) 72.0 BUN/Creatinine Ratio 10 (6-20) Glucose Level 89 mg/dL (70-99) Calcium Level 9.4 mg/dL (8.5-10.1) Total Bilirubin 0.2 mg/dL (0.2-1.0) Aspartate Amino Transf (AST/SGOT) 16 U/L (15-37) Alanine Aminotransferase (ALT/SGPT) 12 U/L (14-59) Alkaline Phosphatase 60 U/L (46-116) Total Protein 6.0 g/dL (6.4-8.2) Albumin 1.5 g/dL (3.4-5.0) Albumin/Globulin Ratio 0.3 (1.0-1.7) Assessment and Plan Assessmemt and Plan Problems Medical Problems: (1) Open wound of sacroiliac region Status: Acute (2) Septic shock Status: Acute Acute encephalopathy - likely metabolic due to hypotension, shock from sepsis. Will monitor BP, fluids, antibiotics Sepsis - likely from UTI and gluteal ulcer. Continue antibiotics (ampicillin, Rocephin) Alzheimer dementia - on aricept, will hold for confusion DM2 - lantus 10u qhs + sliding scale Iron deficiency anemia - on replacement therapy Prior pulmonary embolism - per SNF records - on eliquis CHELSY vs CKD - CR 1.4, will monitor T9 vertebral body fracture - will have PMR assessment Constipation - with Large rectal stool ball measuring 6 cm diameter with mild rectal wall thickening. digitally examined and partially disimpacted Heterogeneous right thyroid lobe - mass effect on the trachea and esophagus. Will obtain US Sacral decubitus ulcer - having wound care at SNF, will have wound care to see, is unstageable, has stool during examination Right elbow ulcer - superficial, local wound care Bilateral heel ulcers - superficial, have wound care to see Trend labs Home meds DVT prophylaxis Full code Long-term prognosis guarded Comment Review of Relevant I have reviewed the following items anand (where applicable) has been applied. Medications: Current Medications Medications (Trade) Dose Ordered Sig/Leandra Route PRN Reason Start Time Stop Time Status Last Admin Dose Admin Ampicillin Sodium 2 gm/Dextrose 100 ml @ 200 mls/hr Q6HRS IV 08/02/21 18:00 08/03/21 05:48 Justifications for Admission Other Justification PREM DELEON III DO Aug 03, 2021 12:15
[2021-08-03 15:00] VITALS: BP 148/84
[2021-08-03] MEDS ORDERED: ACETAMINOPHEN 650 MG SUPP.RECT. PR PRN (18:00)
[2021-08-03 19:00] VITALS: BP 140/74
[2021-08-03] MEDS: INSULIN GLARGINE SYRINGE. SQ SCH (21:00)
[2021-08-03] MEDS ORDERED: SODIUM HYPOCHLORITE 0.125% 473 ML BOTTLE. TP PRN ×2 (21:08→21:10)
[2021-08-03 23:00] VITALS: BP 123/90
[2021-08-04] MEDS: AMPICILLIN SODIUM IV SCH ×5 (00:04→23:39)
[2021-08-04] MEDS: DEXTROSE 5% IV SCH ×5 (00:04→23:39)
[2021-08-04] MEDS: HEPARIN for SUB-Q USE 5,000 UNIT/ML VIAL. SQ SCH ×3 (05:42→20:47)
--- NOTE | 2021-08-04 06:56 | PDOC ---
Infectious Disease Note Subjective Subjective Patient is awake says she is okay ROS ROS No nausea vomiting diarrhea Vital Sign Vital Signs Vital Signs Date Time Temp Pulse Resp B/P (MAP) Pulse Ox O2 Delivery O2 Flow Rate FiO2 08/03/21 23:00 99.0 94 18 123/90 (101) 97 Room Air 99.0 Physical Exam PHYSICAL EXAM GENERAL: Awake female, not in distress. VITAL SIGNS: Stable HEENT: Both pupils are round and reacting. No conjunctival lesion. No lesion in the mouth. NECK: Supple. No JVP, no lymphadenopathy. LUNGS: Clear. HEART: S1, S2, regular. ABDOMEN: Soft, nontender, no organomegaly. EXTREMITIES: No edema, cyanosis. SKIN: Unremarkable. The patient does have a large deep sacral decubitus. NEUROLOGIC: The patient is demented. She does move her extremities, but not much meaningful communication can be done. Labs Lab Laboratory Tests Test 08/03/21 12:06 08/03/21 17:11 08/03/21 21:18 Glucose (Fingerstick) 161 mg/dL (70-99) 217 mg/dL (70-99) 233 mg/dL (70-99) Micro Microbiology 07/29/21 Blood Culture - Preliminary, Resulted NO GROWTH AFTER 2 DAYS 07/28/21 Urine Culture - Final, Complete Enterococcus Faecalis Objective Assessment IMPRESSION: 1. Enterococcal urinary tract infection with bacteremia. Also coag negative staph from 07/28/21 2. Urinary tract infection with sepsis. 3. Encephalopathy. 4. Dementia. 5. Leukocytosis. 6. Fever. Plan Plan of Care ampicillin and Rocephin Supportive care Overall prognosis poor Palliative care in the works Repeat blood culture negative from 07/31/2021 KENTON LYNCH MD Aug 04, 2021 06:56
[2021-08-04 07:00] VITALS: BP 148/66
[2021-08-04 07:50] LABS: ALBUMIN 1.4 g/dL (3.4-5.0); ALBUMIN/GLOBULIN RATIO 0.3 (1.0-1.7); CALCIUM 9.1 mg/dL (8.5-10.1); CREATININE 0.9 mg/dL (0.6-1.0); POTASSIUM 3.2 mmol/L (3.5-5.1); TOTAL BILIRUBIN 0.2 mg/dL (0.2-1.0); TOTAL PROTEIN 5.8 g/dL (6.4-8.2)
[2021-08-04 08:00] LABS: BASO % 1 % (0-3); EOS # 0.3 x10^3/uL (0.0-0.7); EOS % 4 % (0-3); HEMATOCRIT 25.7 % (36.0-47.0); HEMOGLOBIN 8.3 g/dL (12.0-15.5); LYMPH # 1.5 x10^3/uL (1.0-4.8); LYMPH % 23 % (24-48); MEAN CORPUSCULAR HEMOGLOBIN 26 pg (25-35); MEAN CORPUSCULAR HGB CONC 32 g/dL (31-37); MEAN CORPUSCULAR VOLUME 79 fL (79-100); MONO # 0.4 x10^3/uL (0.0-1.1); MONO % 6 % (0-9); NEUT # 4.6 x10^3/uL (1.8-7.7); NEUT % 67 % (31-73); PLATELET COUNT 271 x10^3/uL (140-400); RED BLOOD COUNT 3.24 x10^6/uL (3.50-5.40); WHITE BLOOD COUNT 6.8 x10^3/uL (4.0-11.0)
[2021-08-04] MEDS: FERROUS SULFATE 325 MG TABLET. PO SCH (08:00)
[2021-08-04] MEDS: INSULIN LISPRO 300 UNITS/3 ML VIAL. SQ SCH ×3 (08:00→17:00)
[2021-08-04] MEDS: SODIUM HYPOCHLORITE 0.125% 473 ML BOTTLE. TP SCH ×2 (08:48→21:00)
[2021-08-04] MEDS: cefTRIAXone IV Push 2 GM VIAL. IVP SCH (08:49)
[2021-08-04] MEDS: DICLOFENAC SODIUM 1% TOPICAL GEL 100GM TUBE. TP SCH ×2 (08:49→20:51)
--- NOTE | 2021-08-04 10:11 | PDOC ---
[employer] PROGRESS NOTE Date of Service DOS: DATE: 08/04/21 TIME: 10:10 Chief Complaint Chief Complaint Encephalopathy Sepsis Dementia Diabetes Iron deficiency anemia Prior pulmonary embolism - was on eliquis CHELSY - vasomotor nephropathy, resolved Severe protein calorie malnutrition - progression of dementia and partial compression by thyroid nodule, liquid diet/soft diet and supplements helping T9 vertebral body fracture Constipation Thyroid nodule - very large on right with tracheal deviation. Sacral decub Right elbow decub Heel ulcers halfway resident Enterococcus UTI and enterococcus bacteremia - on vancomycin --> rocephin + ampicillin 07/31/21 FEN - Liquid diet PPX - heparin CODE - DNR/DNI Dispo - inpatient. DPOA is Hansel Man. History of Present Illness History of Present Illness 08/04 Patient evaluated examined at bedside. She was resting in bed easily awoken. Told me she was feeling pretty well. Not able to tell me where she was however. Continue antibiotics per infectious disease. Will need to clarify palliative hospice plan with family. 08/03/2021 Patient seen and examined on the medical floor She was sleeping but awoke She appears very frail Has IV ampicillin hanging Is able to talk with 2 word sentences Discussed with RN Chart reviewed Ms Martinez is an 85 year old female w/ PMHx alzheimer dementia, DM2, iron deficiency anemia, prior pulmonary embolism on eliquis who is brought into ED by EMS for fevers and altered mental status from her SNF. Patient initially not verbally responsive, no history is obtained from her, it is from medical records. She does have a bowel movement during examination. Right elbow and gluteal area with open wound. Initially was not very responsive vitals low blood pressure responsive to fluid bolus started on empiric vancomycin and Zosyn by ED after cultures obtained. WBC 9.7, Hb 7.3, platelets 408, INR 2.1, NA 139, K3.7, BUN 24, CR 1.4, glucose 171, lactic acid 3.3, calcium 8.7, phosphorus 2.4, magnesium 1.7, bilirubin 0.7, AST 33, ALT 18, alkaline phosphatase 64, CRP 115.5, NT proBNP 3605, albumin 1.6, lipase 55, urinalysis with moderate leuk esterase CT chest/abdomen/pelvis with T9 fracture, decubitus ulcer over sacram and coccyx, large stool burden with possible stercoral colitis and large right thyroid lobe with mass effect. Admitted for further care. 07/29: She is currently lying on her left side resting with no apparent distress. Heel has clean dry intact dressing. Has D5 LR hanging. Has Zosyn hanging. Up to bedside drainage 07/30: Transferred from ICU. Hemoglobin 6.7 transfusion 1 unit PRBC given. Wound examined and wound VAC recommendations plastic surgery given her advanced dementia this is more appropriate. I discussed with speech-language pathology patient is holding onto solid foods and can have a liquid diet she does forget cues for swallowing and also may have tracheal interference with her large thyroid mass. I discussed with her grandson Antonino who wants to discuss with the rest of the family before looking to palliative care or hospice but this is something he is interested in. Discussed having a DO NOT RESUSCITATE order to which he is amenable. 07/31: Blood cultures returned positive for Enterococcus faecalis as well as urine culture. Has been on IV vancomycin. She is minimally interactive but is opening her eyes, drinking fluids and liquid diet with prompting. Tolerating frequent turning well wound VAC with no leaks. Hb 8 posttransfusion K3.2 08/01: Hb 8.4, K3.5. More awake today is conversant pleasantly confused. Very weak. Changed to IV ampicillin Rocephin per ID consultation. Plan for wound VAC change today grandson would like to continue current care 08/02: Afebrile overnight. Hb stable 8.6. Wound VAC change without event. Pleasantly confused. Requiring 100% feed assistance today. Vitals/I&O Vitals/I&O: Vital Signs Date Time Temp Pulse Resp B/P (MAP) Pulse Ox O2 Delivery O2 Flow Rate FiO2 08/04/21 08:00 Room Air 08/04/21 07:00 99.1 86 18 148/66 (93) 96 99.1 I & O0 08/03/21 08/03/21 08/04/21 15:00 23:00 07:00 Output Total 800 ml 350 ml Balance -800 ml -350 ml Physical Exam Physical Exam: GENERAL: Awake female, not in distress. VITAL SIGNS: Stable HEENT: Both pupils are round and reacting. No conjunctival lesion. No lesion in the mouth. NECK: Supple. No JVP, no lymphadenopathy. LUNGS: Clear. HEART: S1, S2, regular. ABDOMEN: Soft, nontender, no organomegaly. EXTREMITIES: No edema, cyanosis. SKIN: Unremarkable. The patient does have a large deep sacral decubitus. NEUROLOGIC: The patient is demented. She does move her extremities, but not much meaningful communication can be done. General: Cooperative, No acute distress Heart: Regular rate Lungs: Clear Abdomen: Soft Skin: Other (Stage IV sacral decubitus ulcer measuring approximately 4 x 2 x 1.5 cm with thin amount of tissue overlying the bone. There is stool in the wound. No surrounding cellulitis. Moderate slough along the edges and mild to moderate at the base.) Labs Labs: Laboratory Tests Test 08/03/21 12:06 08/03/21 17:11 08/03/21 21:18 08/04/21 06:05 Glucose (Fingerstick) 161 mg/dL (70-99) 217 mg/dL (70-99) 233 mg/dL (70-99) White Blood Count 6.8 x10^3/uL (4.0-11.0) Red Blood Count 3.24 x10^6/uL (3.50-5.40) Hemoglobin 8.3 g/dL (12.0-15.5) Hematocrit 25.7 % (36.0-47.0) Mean Corpuscular Volume 79 fL (79-100) Mean Corpuscular Hemoglobin 26 pg (25-35) Mean Corpuscular Hemoglobin Concent 32 g/dL (31-37) Red Cell Distribution Width 23.0 % (11.5-14.5) Platelet Count 271 x10^3/uL (140-400) Neutrophils (%) (Auto) 67 % (31-73) Lymphocytes (%) (Auto) 23 % (24-48) Monocytes (%) (Auto) 6 % (0-9) Eosinophils (%) (Auto) 4 % (0-3) Basophils (%) (Auto) 1 % (0-3) Neutrophils # (Auto) 4.6 x10^3/uL (1.8-7.7) Lymphocytes # (Auto) 1.5 x10^3/uL (1.0-4.8) Monocytes # (Auto) 0.4 x10^3/uL (0.0-1.1) Eosinophils # (Auto) 0.3 x10^3/uL (0.0-0.7) Basophils # (Auto) 0.0 x10^3/uL (0.0-0.2) Sodium Level 144 mmol/L (136-145) Potassium Level 3.2 mmol/L (3.5-5.1) Chloride Level 111 mmol/L (98-107) Carbon Dioxide Level 21 mmol/L (21-32) Anion Gap 12 (6-14) Blood Urea Nitrogen 8 mg/dL (7-20) Creatinine 0.9 mg/dL (0.6-1.0) Estimated GFR (Cockcroft-Gault) 72.0 BUN/Creatinine Ratio 9 (6-20) Glucose Level 105 mg/dL (70-99) Calcium Level 9.1 mg/dL (8.5-10.1) Total Bilirubin 0.2 mg/dL (0.2-1.0) Aspartate Amino Transf (AST/SGOT) 11 U/L (15-37) Alanine Aminotransferase (ALT/SGPT) 14 U/L (14-59) Alkaline Phosphatase 52 U/L (46-116) Total Protein 5.8 g/dL (6.4-8.2) Albumin 1.4 g/dL (3.4-5.0) Albumin/Globulin Ratio 0.3 (1.0-1.7) Test 08/04/21 07:44 Glucose (Fingerstick) 97 mg/dL (70-99) Assessment and Plan Assessmemt and Plan Problems Medical Problems: (1) Open wound of sacroiliac region Status: Acute (2) Septic shock Status: Acute Comment Review of Relevant I have reviewed the following items anand (where applicable) has been applied. Medications: Current Medications Medications (Trade) Dose Ordered Sig/Leandra Route PRN Reason Start Time Stop Time Status Last Admin Dose Admin Acetaminophen (Tylenol Supp) 650 mg PRN Q6HRS PRN FL MILD PAIN / TEMP > 100.3'F 08/03/21 18:00 08/03/21 18:11 Justifications for Admission Other Justification ADRIANNA TEJEDA MD Aug 04, 2021 10:11
[2021-08-04 11:00] VITALS: BP 128/66
--- NOTE | 2021-08-04 13:57 | NUR ---
SW following. Discussed with RN, continue abx, palliative/ hospice plan still needing to be decided by family. SW will continue to follow.
[2021-08-04 15:00] VITALS: BP 130/67
--- NOTE | 2021-08-04 18:20 | NUR ---
Wound/Ostomy Care Wound Type/Assessment: Patient seen per Wound care follow up regarding unstageable PU to coccyx, DFU to left heel, and abrasion to the right elbow. The right heel is now closed. Dressing removed and all wounds cleansed, assessed, measured, and pictured. The coccyx wound is measuring larger however the veraflo wound vac has been breaking down the slough and necrotic tissue. The wound still has a very foul odor and is painful at times. The left heel remains slough and eschar covered with minimal improvement and appears to be macerated due to drainage and moisture. Treatment Recommendations/Plan: skin prepped and the Veraflo vac applied to coccyx with 1/4 strength Dakins flush 24 ml for 5 min every 2 hours. a good seal maintained. Change MWF. Wound care will change the heel and elbow again on Wednesday and staff to change on Sundays. Left heel- medi-honey gel, Xeroform, ABD pad and wrap with kerlix, will avoid adhesive foam due to drainage and moisture under the silicone border. then apply heel medix. change with vac dressings and on Wednesday. Right heel- skin prep and foam for protection, heel medix, will reassess on Wednesday. Right elbow-skin prep, xeroform gauze, and foam. Change on Wednesday. Education provided: Pt unable to be educated due to mental status Offloading surface/device: TQ2H, P500 bed, heel medix boots, purple wedge Recommended Referrals/Tests: Awaiting family decision regarding hospice Discharge Recommendations for dressings: Dressing change insturctions left in room. No other wounds noted upon complete head to toe assessment. Bed lowered and wound care will follow up on Wednesday08/06/21 for next vac dressing change.
[2021-08-04 19:00] VITALS: BP 109/73
[2021-08-04] MEDS ORDERED: POTASSIUM BICARB 20 MEQ EFFERVESCENT TABLET. PO ONE (19:15)
[2021-08-04] MEDS: INSULIN GLARGINE SYRINGE. SQ SCH (20:51)
[2021-08-05] MEDS: DEXTROSE 5% IV SCH ×3 (05:22→17:28)
[2021-08-05] MEDS: AMPICILLIN SODIUM IV SCH ×3 (05:22→17:28)
[2021-08-05] MEDS: HEPARIN for SUB-Q USE 5,000 UNIT/ML VIAL. SQ SCH ×3 (05:35→20:57)
[2021-08-05 07:00] VITALS: BP 197/99
[2021-08-05 08:00] VITALS: BP 148/73
[2021-08-05] MEDS: FERROUS SULFATE 325 MG TABLET. PO SCH (08:00)
[2021-08-05] MEDS: INSULIN LISPRO 300 UNITS/3 ML VIAL. SQ SCH ×3 (08:00→17:00)
[2021-08-05] MEDS: DICLOFENAC SODIUM 1% TOPICAL GEL 100GM TUBE. TP SCH ×2 (08:26→20:59)
[2021-08-05] MEDS: SODIUM HYPOCHLORITE 0.125% 473 ML BOTTLE. TP SCH ×2 (08:27→20:55)
[2021-08-05] MEDS: cefTRIAXone IV Push 2 GM VIAL. IVP SCH (08:27)
--- NOTE | 2021-08-05 10:18 | PDOC ---
[employer] PROGRESS NOTE Date of Service DOS: DATE: 08/05/21 TIME: 10:16 Chief Complaint Chief Complaint Encephalopathy Sepsis Dementia Diabetes Iron deficiency anemia Prior pulmonary embolism - was on eliquis CHELSY - vasomotor nephropathy, resolved Severe protein calorie malnutrition - progression of dementia and partial compression by thyroid nodule, liquid diet/soft diet and supplements helping T9 vertebral body fracture Constipation Thyroid nodule - very large on right with tracheal deviation. Sacral decub Right elbow decub Heel ulcers senior living resident Enterococcus UTI and enterococcus bacteremia - on vancomycin --> rocephin + ampicillin 07/31/21 FEN - Liquid diet PPX - heparin CODE - DNR/DNI Dispo - inpatient. DPOA is Hansel Man. History of Present Illness History of Present Illness 08/05 Patient evaluated examined at bedside. Says she is doing well no major complaints for her. Still not oriented. Discussed with gomez on phone regarding hospice palliative decision he said they had not come to a decision y et. I asked him if he would be okay with [facility] the decision and [facility] staff can switch her over to hospice if that is what they decide. He was okay with this plan. Will need Covid negative. Will try to contact infectious disease to see if any oral antibiotic choices. If none will start arranging PICC line. 08/04 Patient evaluated examined at bedside. She was resting in bed easily awoken. Told me she was feeling pretty well. Not able to tell me where she was however. Continue antibiotics per infectious disease. Will need to clarify palliative hospice plan with family. 08/03/2021 Patient seen and examined on the medical floor She was sleeping but awoke She appears very frail Has IV ampicillin hanging Is able to talk with 2 word sentences Discussed with RN Chart reviewed Ms Martinez is an 85 year old female w/ PMHx alzheimer dementia, DM2, iron deficiency anemia, prior pulmonary embolism on eliquis who is brought into ED by EMS for fevers and altered mental status from her SNF. Patient initially not verbally responsive, no history is obtained from her, it is from medical records. She does have a bowel movement during examination. Right elbow and gluteal area with open wound. Initially was not very responsive vitals low blood pressure responsive to fluid bolus started on empiric vancomycin and Zosyn by ED after cultures obtained. WBC 9.7, Hb 7.3, platelets 408, INR 2.1, NA 139, K3.7, BUN 24, CR 1.4, glucose 171, lactic acid 3.3, calcium 8.7, phosphorus 2.4, magnesium 1.7, bilirubin 0.7, AST 33, ALT 18, alkaline phosphatase 64, CRP 115.5, NT proBNP 3605, albumin 1.6, lipase 55, urinalysis with moderate leuk esterase CT chest/abdomen/pelvis with T9 fracture, decubitus ulcer over sacram and cocc yx, large stool burden with possible stercoral colitis and large right thyroid lobe with mass effect. Admitted for further care. 07/29: She is currently lying on her left side resting with no apparent distress. Heel has clean dry intact dressing. Has D5 LR hanging. Has Zosyn hanging. Up to bedside drainage 07/30: Transferred from ICU. Hemoglobin 6.7 transfusion 1 unit PRBC given. Wound examined and wound VAC recommendations plastic surgery given her advanced dementia this is more appropriate. I discussed with speech-language pathology patient is holding onto solid foods and can have a liquid diet she does forget cues for swallowing and also may have tracheal interference with her large thyroid mass. I discussed with her grandson Antonino who wants to discuss with the rest of the family before looking to palliative care or hospice but this is something he is interested in. Discussed having a DO NOT RESUSCITATE order to which he is amenable. 07/31: Blood cultures returned positive for Enterococcus faecalis as well as urine culture. Has been on IV vancomycin. She is minimally interactive but is opening her eyes, drinking fluids and liquid diet with prompting. Tolerating frequent turning well wound VAC with no leaks. Hb 8 posttransfusion K3.2 08/01: Hb 8.4, K3.5. More awake today is conversant pleasantly confused. Very weak. Changed to IV ampicillin Rocephin per ID consultation. Plan for wound VAC change today grandson would like to continue current care 08/02: Afebrile overnight. Hb stable 8.6. Wound VAC change without event. Pleasantly confused. Requiring 100% feed assistance today. Vitals/I&O Vitals/I&O: Vital Signs Date Time Temp Pulse Resp B/P (MAP) Pulse Ox O2 Delivery O2 Flow Rate FiO2 08/05/21 07:58 Room Air 08/05/21 07:00 98.1 93 14 197/99 (131) 93.0 98.1 08/04/21 19:00 98 I & O 08/04/21 08/04/21 08/05/21 15:00 23:00 07:00 Output Total 700 ml Balance -700 ml Physical Exam Physical Exam: GENERAL: Awake female, not in distress. VITAL SIGNS: Stable HEENT: Both pupils are round and reacting. No conjunctival lesion. No lesion in the mouth. NECK: Supple. No JVP, no lymphadenopathy. LUNGS: Clear. HEART: S1, S2, regular. ABDOMEN: Soft, nontender, no organomegaly. EXTREMITIES: No edema, cyanosis. SKIN: Unremarkable. The patient does have a large deep sacral decubitus. NEUROLOGIC: The patient is demented. She does move her extremities, but not much meaningful communication can be done. General: Cooperative, No acute distress Heart: Regular rate Lungs: Clear Abdomen: Soft Skin: Other (Stage IV sacral decubitus ulcer measuring approximately 4 x 2 x 1.5 cm with thin amount of tissue overlying the bone. There is stool in the wound. No surrounding cellulitis. Moderate slough along the edges and mild to moderate at the base.) Labs Labs: Laboratory Tests Test 08/04/21 11:06 08/04/21 17:00 08/04/21 20:37 08/05/21 07:59 Glucose (Fingerstick) 165 mg/dL (70-99) 159 mg/dL (70-99) 187 mg/dL (70-99) 118 mg/dL (70-99) Assessment and Plan Assessmemt and Plan Problems Medical Problems: (1) Open wound of sacroiliac region Status: Acute (2) Septic shock Status: Acute Comment Review of Relevant I have reviewed the following items anand (where applicable) has been applied. Medications: Current Medications Medications (Trade) Dose Ordered Sig/Leandra Route PRN Reason Start Time Stop Time Status Last Admin Dose Admin Potassium Bicarbonate (Potassium Effervescent Tablet) 40 meq 1X ONCE PO 08/04/21 19:15 08/04/21 19:17 DC 08/04/21 20:46 Justifications for Admission Other Justification ADRIANNA TEJEDA MD Aug 05, 2021 10:18
[2021-08-05 11:00] VITALS: BP 118/89
--- NOTE | 2021-08-05 12:22 | PDOC ---
Infectious Disease Note Subjective: Subjective Patient is awake says she is okay Denies any pain Vital Signs: Vital Signs Vital Signs Date Time Temp Pulse Resp B/P (MAP) Pulse Ox O2 Delivery O2 Flow Rate FiO2 08/05/21 11:00 97.6 66 12 118/89 (99) 99 Room Air 97.6 08/05/21 07:00 93.0 Physical Exam: PHYSICAL EXAM GENERAL: Awake female, not in distress. HEENT: Both pupils are round and reacting. No conjunctival lesion. No lesion in the mouth. NECK: Supple. No JVP, no lymphadenopathy. LUNGS: Clear. HEART: S1, S2, regular. ABDOMEN: Soft, nontender, no organomegaly. EXTREMITIES: No edema, cyanosis. SKIN: Unremarkable. The patient does have a large deep sacral decubitus. NEUROLOGIC: The patient is demented. She does move her extremities, but not much meaningful communication can be done. Medications: Inpatient Meds: Medications reviewed. Labs: Lab Laboratory Tests Test 08/04/21 17:00 08/04/21 20:37 08/05/21 07:59 08/05/21 11:28 Glucose (Fingerstick) 159 mg/dL (70-99) 187 mg/dL (70-99) 118 mg/dL (70-99) SARS-CoV-2 Antigen (Rapid) Negative (NEGATIVE) Objective: Assessment: 1. Enterococcal urinary tract infection with bacteremia. Also coag negative staph from 07/28/21 2. Urinary tract infection with sepsis. 3. Encephalopathy. 4. Dementia. 5. Leukocytosis. 6. Fever. Plan: Plan of Care Continue ampicillin and Rocephin Repeat blood culture negative from 07/31/2021 Supportive care Overall prognosis poor Palliative care in the works ANTOINE LYNCH MD Aug 05, 2021 12:22
--- NOTE | 2021-08-05 13:33 | NUR ---
TRIXIE following. Discussed with RN, TRIXIE spoke with Danae at [facility], they can do IV abx, but will need to get an auth before pt can return. TRIXIE faxed updates, requested auth be started today. Dr. Peña trying to determine if there might be a PO abx option to avoid this. Family still deciding on hospice - will decide after pt returns to [facility]. TRIXIE will continue to follow.
[2021-08-05 15:00] VITALS: BP 165/81
[2021-08-05 19:00] VITALS: BP 148/77
[2021-08-05] MEDS: INSULIN GLARGINE SYRINGE. SQ SCH (20:54)
[2021-08-05 23:00] VITALS: BP 170/77
[2021-08-06] MEDS: DEXTROSE 5% IV SCH ×3 (00:37→12:40)
[2021-08-06] MEDS: AMPICILLIN SODIUM IV SCH ×3 (00:37→12:40)
[2021-08-06] MEDS: HEPARIN for SUB-Q USE 5,000 UNIT/ML VIAL. SQ SCH ×3 (06:03→20:59)
[2021-08-06 07:00] VITALS: BP 151/68
[2021-08-06] MEDS: INSULIN LISPRO 300 UNITS/3 ML VIAL. SQ SCH ×3 (08:00→17:00)
[2021-08-06] MEDS: cefTRIAXone IV Push 2 GM VIAL. IVP SCH (08:49)
[2021-08-06] MEDS: FERROUS SULFATE 325 MG TABLET. PO SCH (08:49)
[2021-08-06] MEDS: DICLOFENAC SODIUM 1% TOPICAL GEL 100GM TUBE. TP SCH ×2 (08:51→20:54)
[2021-08-06] MEDS: SODIUM HYPOCHLORITE 0.125% 473 ML BOTTLE. TP SCH ×2 (08:54→19:34)
--- NOTE | 2021-08-06 10:00 | NUR ---
Call placed to Dr. Street at the request of Dr. Peña to determine whether or not patient can be discharged back to [facility] with PO or IV antibiotics. Phone connection was bad so Lin (community relations rep) sent Dr. Street a text message regarding callback for the patient. No callback received.
[2021-08-06 11:00] VITALS: BP 144/64
--- NOTE | 2021-08-06 11:45 | NUR ---
Second call placed to Dr. Street's sanitation truck cleaner voicemail requesting callback regarding patient's need for PO or IV antibiotics. Awaiting callback.
--- NOTE | 2021-08-06 13:21 | PDOC ---
[employer] PROGRESS NOTE Date of Service DOS: DATE: 08/06/21 TIME: 13:19 Chief Complaint Chief Complaint Encephalopathy Sepsis Dementia Diabetes Iron deficiency anemia Prior pulmonary embolism - was on eliquis CHELSY - vasomotor nephropathy, resolved Severe protein calorie malnutrition - progression of dementia and partial compression by thyroid nodule, liquid diet/soft diet and supplements helping T9 vertebral body fracture Constipation Thyroid nodule - very large on right with tracheal deviation. Sacral decub Right elbow decub Heel ulcers prison resident Enterococcus UTI and enterococcus bacteremia - on vancomycin --> rocephin + ampicillin 07/31/21 FEN - Liquid diet PPX - heparin CODE - DNR/DNI Dispo - inpatient. DPOA is Hansel Man. History of Present Illness History of Present Illness 08/06 Patient evaluated examined at bedside. Resting in bed. Discharge today or tomorrow. Will contact ID regarding antibiotics. If oral will d/c today, If IV will order picc and likely d/c tomorrow then. Plan discusssed with bedside RN. 08/05 Patient evaluated examined at bedside. Says she is doing well no major complaints for her. Still not oriented. Discussed with gomez on phone regarding hospice palliative decision he said they had not come to a decision yet. I asked him if he would be okay with patient returning to the retirement while they made the decision and her retirement staff can switch her over to hospice if that is what they decide. He was okay with this plan. Will need Covid negative. Will try to contact infectious disease to see if any oral antibiotic choices. If none will start arranging PICC line. 08/04 Patient evaluated examined at bedside. She was resting in bed easily awoken. Told me she was feeling pretty well. Not able to tell me where she was however. Continue antibiotics per infectious disease. Will need to clarify palliative hospice plan with family. 08/03/2021 Patient seen and examined on the medical floor She was sleeping but awoke She appears very frail Has IV ampicillin hanging Is able to talk with 2 word sentences Discussed with RN Chart reviewed Ms Martinez is an 85 year old female w/ PMHx alzheimer dementia, DM2, iron deficiency anemia, prior pulmonary embolism on eliquis who is brought into ED by EMS for fevers and altered mental status from her SNF. Patient initially not verbally responsive, no history is obtained from her, it is from medical records. She does have a bowel movement during examination. Right elbow and gluteal area with open wound. Initially was not very responsive vitals low blood pressure responsive to fluid bolus started on empiric vancomycin and Zosyn by ED after cultures obtained. WBC 9.7, Hb 7.3, platelets 408, INR 2.1, NA 139, K3.7, BUN 24, CR 1.4, glucose 171, lactic acid 3.3, calcium 8.7, phosphorus 2.4, magnesium 1.7, bilirubin 0.7, AST 33, ALT 18, alkaline phosphatase 64, CRP 115.5, NT proBNP 3605, albumin 1.6, lipase 55, urinalysis with moderate leuk esterase CT chest/abdomen/pelvis with T9 fracture, decubitus ulcer over sacram and coccyx, large stool burden with possible stercoral colitis and large right thyroid lobe with mass effect. Admitted for further care. 07/29: She is currently lying on her left side resting with no apparent distress. Heel has clean dry intact dressing. Has D5 LR hanging. Has Zosyn hanging. Up to bedside drainage 07/30: Transferred from ICU. Hemoglobin 6.7 transfusion 1 unit PRBC given. Wound examined and wound VAC recommendations plastic surgery given her advanced dementia this is more appropriate. I discussed with speech-language pathology patient is holding onto solid foods and can have a liquid diet she does forget cues for swallowing and also may have tracheal interference with her large thyroid mass. I discussed with her grandson Antonino who wants to discuss with the rest of the family before looking to palliative care or hospice but this is something he is interested in. Discussed having a DO NOT RESUSCITATE order to which he is amenable. 07/31: Blood cultures returned positive for Enterococcus faecalis as well as urine culture. Has been on IV vancomycin. She is minimally interactive but is opening her eyes, drinking fluids and liquid diet with prompting. Tolerating frequent turning well wound VAC with no leaks. Hb 8 posttransfusion K3.2 08/01: Hb 8.4, K3.5. More awake today is conversant pleasantly confused. Very weak. Changed to IV ampicillin Rocephin per ID consultation. Plan for wound [facility] C change today grandson would like to continue current care 08/02: Afebrile overnight. Hb stable 8.6. Wound VAC change without event. Pleasantly confused. Requiring 100% feed assistance today. Vitals/I&O Vitals/I&O: Vital Signs Date Time Temp Pulse Resp B/P (MAP) Pulse Ox O2 Delivery O2 Flow Rate FiO2 08/06/21 11:00 98.0 98 16 144/64 (90) 94 98.0 08/06/21 08:00 Room Air 94.0 I & O 08/05/21 08/05/21 08/06/21 15:00 23:00 07:00 Intake Total 50 ml 0 ml Output Total 500 ml Balance -500 ml 50 ml 0 ml Physical Exam Physical Exam: GENERAL: Awake female, not in distress. HEENT: Both pupils are round and reacting. No conjunctival lesion. No lesion in the mouth. NECK: Supple. No JVP, no lymphadenopathy. LUNGS: Clear. HEART: S1, S2, regular. ABDOMEN: Soft, nontender, no organomegaly. EXTREMITIES: No edema, cyanosis. SKIN: Unremarkable. The patient does have a large deep sacral decubitus. NEUROLOGIC: The patient is demented. She does move her extremities, but not much meaningful communication can be done. General: Cooperative, No acute distress Heart: Regular rate Lungs: Clear Abdomen: Soft Skin: Other (Stage IV sacral decubitus ulcer measuring approximately 4 x 2 x 1.5 cm with thin amount of tissue overlying the bone. There is stool in the wound. No surrounding cellulitis. Moderate slough along the edges and mild to moderate at the base.) Labs Labs: Laboratory Tests Test 08/05/21 15:58 08/05/21 20:49 08/06/21 07:36 08/06/21 12:11 Glucose (Fingerstick) 115 mg/dL (70-99) 113 mg/dL (70-99) 91 mg/dL (70-99) 92 mg/dL (70-99) Assessment and Plan Assessmemt and Plan Problems Medical Problems: (1) Open wound of sacroiliac region Status: Acute (2) Septic shock Status: Acute Comment Review of Relevant I have reviewed the following items anand (where applicable) has been applied. Justifications for Admission Other Justification ADRIANNA TEJEDA MD Aug 06, 2021 13:21
--- NOTE | 2021-08-06 14:41 | PDOC ---
Infectious Disease Note Subjective: Subjective Patient more alert today Denies any pain Vital Signs: Vital Signs Vital Signs Date Time Temp Pulse Resp B/P (MAP) Pulse Ox O2 Delivery O2 Flow Rate FiO2 08/06/21 11:00 98.0 98 16 144/64 (90) 94 98.0 08/06/21 08:00 Room Air 94.0 Physical Exam: PHYSICAL EXAM GENERAL: Awake female, not in distress. HEENT: Both pupils are round and reacting. No conjunctival lesion. No lesion in the mouth. NECK: Supple. No JVP, no lymphadenopathy. LUNGS: Clear. HEART: S1, S2, regular. ABDOMEN: Soft, nontender, no organomegaly. EXTREMITIES: No edema, cyanosis. SKIN: Unremarkable. The patient does have a large deep sacral decubitus. NEUROLOGIC: The patient is demented. She does move her extremities, but not much meaningful communication can be done. Medications: Inpatient Meds: Medications reviewed. Labs: Lab Laboratory Tests Test 08/05/21 15:58 08/05/21 20:49 08/06/21 07:36 08/06/21 12:11 Glucose (Fingerstick) 115 mg/dL (70-99) 113 mg/dL (70-99) 91 mg/dL (70-99) 92 mg/dL (70-99) Objective: Assessment: 1. Enterococcal urinary tract infection with bacteremia. Also coag negative staph bacteremia from 07/28/21,latter likely contaminant 2. Urinary tract infection with sepsis. 3. Encephalopathy. 4. Dementia. 5. Leukocytosis.improved 6. Fever. resolved Plan: Plan of Care Continue ampicillin and Rocephin for now Repeat blood culture negative from 07/29/2021 Supportive care Overall prognosis poor Team wants to discharge pt will transition to po linezolid on discharge to complete total 7 more days D/W ANTOINE BETANCOURT MD Aug 06, 2021 14:41
[2021-08-06 15:00] VITALS: BP 159/83
--- NOTE | 2021-08-06 15:17 | NUR ---
Wound Care: Wound care will change wound vac tomorrow 08/07/21, due to the pain in this wound we recommend 2X/weekly dressing change using Veraflo.
--- NOTE | 2021-08-06 16:02 | NUR ---
Dr. Street on unit, cancelled order for PICC line placement, changed antibiotic order to daptomycin.
--- NOTE | 2021-08-06 16:08 | NUR ---
Dr. Reina notified (taking call for Dr. Peña), that Dr. Street discontinued order for PICC line placement in the morning and changed antibiotic to daptomycin, no further orders received.
[2021-08-06] MEDS: DAPTOmycin (GENERIC) IVPB 450 MG in IV NORMAL SALINE 50ML 50 ML IV SCH (17:08)
[2021-08-06] MEDS ORDERED: AMPICILLIN SODIUM 2 GM in IV NORMAL SALINE 100ML 100 ML IV SCH (18:00)
[2021-08-06 19:00] VITALS: BP 146/76
[2021-08-06] MEDS: INSULIN GLARGINE SYRINGE. SQ SCH (21:18)
[2021-08-06 23:00] VITALS: BP 143/79
[2021-08-06 23:55] VITALS: BP 148/78
[2021-08-07 03:20] VITALS: BP 154/76
[2021-08-07] MEDS: HEPARIN for SUB-Q USE 5,000 UNIT/ML VIAL. SQ SCH ×2 (05:49→13:22)
--- NOTE | 2021-08-07 05:51 | PDOC ---
Infectious Disease Note Subjective: Subjective Patient comfortable, alert, awake without complaints Vital Signs: Vital Signs Vital Signs Date Time Temp Pulse Resp B/P (MAP) Pulse Ox O2 Delivery O2 Flow Rate FiO2 08/07/21 03:20 98.2 94 20 154/76 (102) 98 Nasal Cannula 98.2 08/06/21 08:00 94.0 Physical Exam: PHYSICAL EXAM GENERAL: Awake female, not in distress. HEENT: Both pupils are round and reacting. No conjunctival lesion. No lesion in the mouth. NECK: Supple. No JVP, no lymphadenopathy. LUNGS: Clear. HEART: S1, S2, regular. ABDOMEN: Soft, nontender, no organomegaly. EXTREMITIES: No edema, cyanosis. SKIN: Unremarkable. The patient does have a large deep sacral decubitus. NEUROLOGIC: The patient is demented. She does move her extremities, but not much meaningful communication can be done. Medications: Inpatient Meds: Medications reviewed. Labs: Lab Laboratory Tests Test 08/06/21 07:36 08/06/21 12:11 08/06/21 17:05 08/06/21 21:08 Glucose (Fingerstick) 91 mg/dL (70-99) 92 mg/dL (70-99) 126 mg/dL (70-99) 109 mg/dL (70-99) Objective: Assessment: 1. Enterococcal urinary tract infection with bacteremia. Also coag negative staph bacteremia from 07/28/21,latter likely contaminant 2. Urinary tract infection with sepsis. 3. Encephalopathy. 4. Dementia. 5. Leukocytosis.improved 6. Fever. resolved Plan: Plan of Care Dose daptomycin before discharge Repeat blood culture negative from 07/29/2021 Supportive care Overall prognosis poor Team wants to discharge pt transition to po linezolid starting tomorrow to complete total 7 more days D/W ANTOINE BETANCOURT MD Aug 07, 2021 05:51
[2021-08-07 07:00] VITALS: BP_SYST 121; BP_SYST 142; BP_DIAS 69; BP_DIAS 88
[2021-08-07] MEDS: INSULIN LISPRO 300 UNITS/3 ML VIAL. SQ SCH ×2 (08:00→12:00)
--- NOTE | 2021-08-07 08:59 | PDOC ---
[employer] PROGRESS NOTE Date of Service DOS: DATE: 08/07/21 TIME: 08:58 Chief Complaint Chief Complaint Encephalopathy Sepsis Dementia Diabetes Iron deficiency anemia Prior pulmonary embolism - was on eliquis CHELSY - vasomotor nephropathy, resolved Severe protein calorie malnutrition - progression of dementia and partial compression by thyroid nodule, liquid diet/soft diet and supplements helping T9 vertebral body fracture Constipation Thyroid nodule - very large on right with tracheal deviation. Sacral decub Right elbow decub Heel ulcers senior care resident Enterococcus UTI and enterococcus bacteremia - on vancomycin --> rocephin + ampicillin 07/31/21 FEN - Liquid diet PPX - heparin CODE - DNR/DNI Dispo - inpatient. DPOA is Hansel Man. History of Present Illness History of Present Illness 08/07/21 Patient seen and examined at bedside. Was confused and unable to answer questions Hopeful to d/c today. Will transition to PO linezolid tomorrow, give dose of dapto today prior to d/c Will return to half-way while family decides if they want to pursue palliative care Discussed w RN Chart reviewed 08/06 Patient evaluated examined at bedside. Resting in bed. Discharge today or tomorrow. Will contact ID regarding antibiotics. If oral will d/c today, If IV will order picc and likely d/c tomorrow then. Plan discusssed with bedside RN. 08/05 Patient evaluated examined at bedside. Says she is doing well no major complaints for her. Still not oriented. Discussed with gomez on phone regarding hospice palliative decision he said they had not come to a decision yet. I asked him if he would be okay with patient returning to the half-way while they made the decision and her half-way staff can switch her over to hospice if that is what they decide. He was okay with this plan. Will need Covid negative. Will try to contact infectious disease to see if any oral antibiotic choices. If none will start arranging PICC line. 08/04 Patient evaluated examined at bedside. She was resting in bed easily awoken. Told me she was feeling pretty well. Not able to tell me where she was however. Continue antibiotics per infectious disease. Will need to clarify palliative hospice plan with family. 08/03/2021 Patient seen and examined on the medical floor She was sleeping but awoke She appears very frail Has IV ampicillin hanging Is able to talk with 2 word sentences Discussed with RN Chart reviewed Ms Martinez is an 85 year old female w/ PMHx alzheimer dementia, DM2, iron deficiency anemia, prior pulmonary embolism on eliquis who is brought into ED by EMS for fevers and altered mental status from her SNF. Patient initially not verbally responsive, no history is obtained from her, it is from medical records. She does have a bowel movement during examination. Right elbow and gluteal area with open wound. Initially was not very responsive vitals low blood pressure responsive to fluid bolus started on empiric vancomycin and Zosyn by ED after cultures obtained. WBC 9.7, Hb 7.3, platelets 408, INR 2.1, NA 139, K3.7, BUN 24, CR 1.4, glucose 171, lactic acid 3.3, calcium 8.7, phosphorus 2.4, magnesium 1.7, bilirubin 0.7, AST 33, ALT 18, alkaline phosphatase 64, CRP 115.5, NT proBNP 3605, albumin 1.6, lipase 55, urinalysis with moderate leuk esterase CT chest/abdomen/pelvis with T9 fracture, decubitus ulcer over sacram and coccyx, large stool burden with possible stercoral colitis and large right thyroid lobe with mass effect. Admitted for further care. 07/29: She is currently lying on her left side resting with no apparent distress. Heel has clean dry intact dressing. Has D5 LR hanging. Has Zosyn hanging. Up to bedside drainage 07/30: Transferred from ICU. Hemoglobin 6.7 transfusion 1 unit PRBC given. Wound examined and wound VAC recommendations plastic surgery given her advanced de mentia this is more appropriate. I discussed with speech-language pathology patient is holding onto solid foods and can have a liquid diet she does forget cues for swallowing and also may have tracheal interference with her large thyroid mass. I discussed with her grandson Antonino who wants to discuss with the rest of the family before looking to palliative care or hospice but this is something he is interested in. Discussed having a DO NOT RESUSCITATE order to which he is amenable. 07/31: Blood cultures returned positive for Enterococcus faecalis as well as urine culture. Has been on IV vancomycin. She is minimally interactive but is opening her eyes, drinking fluids and liquid diet with prompting. Tolerating frequent turning well wound VAC with no leaks. Hb 8 posttransfusion K3.2 08/01: Hb 8.4, K3.5. More awake today is conversant pleasantly confused. Very weak. Changed to IV ampicillin Rocephin per ID consultation. Plan for wound VAC change today grandson would like to continue current care 08/02: Afebrile overnight. Hb stable 8.6. Wound VAC change without event. Pleasantly confused. Requiring 100% feed assistance today. Vitals/I&O Vitals/I&O: Vital Signs Date Time Temp Pulse Resp B/P (MAP) Pulse Ox O2 Delivery O2 Flow Rate FiO2 08/07/21 07:00 98.6 100 18 142/88 (106) 98 Nasal Cannula 98.6 08/06/21 08:00 94.0 I & O 08/06/21 08/06/21 08/07/21 15:00 23:00 07:00 Output Total 400 ml 300 ml Balance -400 ml -300 ml Physical Exam Physical Exam: GENERAL: Awake female, not in distress. HEENT: Both pupils are round and reacting. No conjunctival lesion. No lesion in the mouth. NECK: Supple. No JVP, no lymphadenopathy. LUNGS: Clear. HEART: S1, S2, regular. ABDOMEN: Soft, nontender, no organomegaly. EXTREMITIES: No edema, cyanosis. SKIN: Unremarkable. The patient does have a large deep sacral decubitus. NEUROLOGIC: The patient is demented. She does move her extremities, but not much meaningful communication can be done. General: Cooperative, No acute distress Heart: Regular rate Lungs: Clear Abdomen: Soft Skin: Other (Stage IV sacral decubitus ulcer measuring approximately 4 x 2 x 1.5 cm with thin amount of tissue overlying the bone. There is stool in the wound. No surrounding cellulitis. Moderate slough along the edges and mild to moderate at the base.) Labs Labs: Laboratory Tests Test 08/06/21 12:11 08/06/21 17:05 08/06/21 21:08 Glucose (Fingerstick) 92 mg/dL (70-99) 126 mg/dL (70-99) 109 mg/dL (70-99) Assessment and Plan Assessmemt and Plan Problems Medical Problems: (1) Open wound of sacroiliac region Status: Acute (2) Septic shock Status: Acute Assessment: 1. Enterococcal urinary tract infection with bacteremia. Also coag negative staph bacteremia from 07/28/21,latter likely contaminant 2. Urinary tract infection with sepsis. 3. Encephalopathy. 4. Dementia. 5. Leukocytosis.improved 6. Fever. resolved Plan We will discharge back to long-term care later today after her daptomycin is completed Agree with Zyvox 600 p.o. twice daily after discharge Give Dapto prior to d/c to intermediate care will transition to po linezolid starting tomorrow to complete total 7 more days Repeat blood culture negative from 07/29/2021 Supportive care Overall prognosis poor DVT prophylaxis cont home care DNR Comment Review of Relevant I have reviewed the following items anand (where applicable) has been applied. Medications: Current Medications Medications (Trade) Dose Ordered Sig/Leandra Route PRN Reason Start Time Stop Time Status Last Admin Dose Admin Daptomycin 450 mg/ Sodium Chloride 50 ml @ 100 mls/hr Q24H IV 08/06/21 16:30 08/06/21 17:08 Justifications for Admission Other Justification PREM DELEON III DO Aug 07, 2021 08:59
[2021-08-07] MEDS: SODIUM HYPOCHLORITE 0.125% 473 ML BOTTLE. TP SCH (09:00)
[2021-08-07] MEDS: FERROUS SULFATE 325 MG TABLET. PO SCH (09:12)
[2021-08-07] MEDS: DICLOFENAC SODIUM 1% TOPICAL GEL 100GM TUBE. TP SCH (09:13)
[2021-08-07] MEDS ORDERED: LINE600T12 PO (10:46)
[2021-08-07] MEDS ORDERED: Diclofenac Sodium TP (10:46)
--- NOTE | 2021-08-07 10:47 | SNU/HH DC ---
DISCHARGE ORDERS DISCHARGE INFORMATION: FINAL DIAGNOSIS Problems Medical Problems: (1) Open wound of sacroiliac region Status: Acute (2) Septic shock Status: Acute CONDITION ON DISCHARGE: Stable CODE STATUS: Code Status: DNR/DNI ALF: SNF STAY <30 DAYS: No HOSPICE: HOSPICE: No HOSPICE EVAL & TREAT: No LTAC: ADMIT TO LTAC: No POST DISCHARGE ORDERS: ACTIVITY ORDERS: Bedrest today WEIGHT BEARING STATUS: As tolerated DIET AFTER DISCHARGE: Cardiac DISCHARGE MEDICATIONS: Home Meds Active Scripts Linezolid (ZYVOX) 600 Mg Tablet, 600 MG PO BID for . for 10 Days, #20 TAB Prov:CASTLE,NIAL K III DO 08/07/21 [Diclofenac Sodium 1% Topical] 100 GM GEL..GRAM. No Conflict Check, 1 YOHAN TP BID for . for 14 Days, #28 EACH Prov:CASTLE,NIAL K III DO 08/07/21 Reported Medications Suvorexant (Belsomra) 5 Mg Tablet, 5 MG PO HS for insomnia, TAB 07/29/21 Albuterol Sulfate (Proventil Hfa) 6.7 Gm Hfa.aer.ad, 2 PUFF INH Q4HRS PRN for WHEEZING, EACH 07/29/21 Prazosin Hcl (PRAZOSIN HCL) 5 Mg Capsule, 1 CAP PO QHS for htn, #30 CAP 1 Refill 07/29/21 Potassium Chloride (Potassium Chloride) 20 Meq Tablet.er, 20 MEQ PO DAILY for supplement, TAB.SR 07/29/21 Polyethylene Glycol 3350 (MIRALAX) 17 Gm Powd.pack, 1 PACKET PO DAILY PRN for CONSTIPATION for 2 Days, #2 PACKET 0 Refills dissolve in water 07/29/21 Mirtazapine (MIRTAZAPINE) 45 Mg Tablet, 1 TAB PO QHS for insomnia, #30 TAB 1 Refill 07/29/21 Loperamide Hcl (LOPERAMIDE) 2 Mg Tablet, 2 MG PO Q6HRS for dirrhea, TAB 07/29/21 Insulin Glargine,Hum.rec.anlog (LANTUS SOLOSTAR) 100 Unit/1 Ml Insuln.pen, 15 UNIT SQ QHS for dm, #15 ML 3 Refills 07/29/21 Insulin Glargine,Hum.rec.anlog (LANTUS) 100 Unit/1 Ml Vial, 10 UNIT SQ QAM for dm, EACH 07/29/21 Furosemide (FUROSEMIDE) 20 Mg Tablet, 1 TAB PO QODAY for chf, #90 TAB 1 Refill 07/29/21 Fluticasone Propionate (Flonase Allergy Relief) 9.9 Ml Almond.susp, 1 SPRAYS NS DAILY for allergies, ML 07/29/21 Ferrous Sulfate (FERROUS SULFATE) 325 Mg Tablet, 1 TAB PO BID for supplement, #30 TAB 3 Refills 07/29/21 Famotidine (FAMOTIDINE) 20 Mg Tablet, 20 MG PO HS for gerd, TAB 07/29/21 Apixaban (ELIQUIS) 5 Mg Tablet, 5 MG PO BID for afib, TAB 07/29/21 Aspirin (Children's Aspirin) 81 Mg Tab.chew, 1 TAB PO DAILY for cardiac health for 30 Days, #30 TAB 0 Refills 07/29/21 Ascorbic Acid (VITAMIN C) 500 Mg Capsule.er, 1 CAP PO DAILY for iron supplement for 30 Days, #30 CAP 0 Refills 07/29/21 Donepezil Hcl (ARICEPT) 5 Mg Tablet, 1 TAB PO QHS for dementia for 30 Days, #30 TAB 0 Refills 07/29/21 Acetaminophen (ACETAMINOPHEN) 500 Mg Tablet, 1 TAB PO HS PRN for pain or fever for 15 Days, #60 TAB 0 Refills 07/29/21 PREM DELEON III DO Aug 07, 2021 10:47
--- NOTE | 2021-08-07 10:58 | NUR ---
SW following. Discussed with RN, plan for pt to receive last dose of IV Dapto this afternoon and discharge back to [facility] this afternoon with PO abx. Discharge orders phoned and faxed to [facility], awaiting transportation time. TRIXIE will continue to follow. Addendum: 08/07/21 at 1313 by ERIK MARCUM [facility] arranged stretcher transportation for between [id number]. RN notified.
[2021-08-07 11:00] VITALS: BP 141/86
--- NOTE | 2021-08-07 12:17 | DS ---
DATE OF DISCHARGE: 08/07/2021 ADMISSION DIAGNOSES: Sepsis, severe encephalopathy, Alzheimer's dementia, diabetes, anemia, acute kidney injury, prior pulmonary embolism, T9 vertebral fracture, constipation, sacral decubitus ulcer, right elbow ulcer, bilateral heel ulcers. DISCHARGE DIAGNOSIS: Resolving sepsis. HOSPITAL COURSE: The patient is a pleasant elderly female who presented with sepsis and the above noted comorbidities. Basically, she was admitted. We gave her IV antibiotics and consulted Infectious Disease. She has been getting IV daptomycin. Today, the patient is back to her baseline. Infectious Disease is okay, we changed her to p.o. Zyvox. We plan to discharge to a skilled nursing if okay with Infectious Disease. DISPOSITION: Back to her skilled nursing. ACTIVITY: As tolerated. DIET: Low sodium. DISCHARGE MEDICATIONS: Please see the [facility]AD. Zyvox 600 p.o. b.i.d. for 10 days, p.r.n. Tylenol, albuterol, Eliquis 5 b.i.d., vitamin C, aspirin 81 a day, Aricept 5 a day, Pepcid 20 b.i.d., iron 325 b.i.d., Lasix 20 a day, insulin 10 units with meals of NovoLog and 15 units at bedtime of Lantus, p.r.n. loperamide, mirtazapine 45 a day, senna, MiraLax, potassium chloride 20 a day, prazosin 5 a day and Belsomra 5 at bedtime. TOTAL TIME: 34 minutes. CRISTIN/HALI DR: Joshua TID: [id number]
[2021-08-07] MEDS: DAPTOmycin (GENERIC) IVPB 450 MG in IV NORMAL SALINE 50ML 50 ML IV SCH (14:23)
--- NOTE | 2021-08-07 15:30 | NUR ---
Discharge Note: MIRELLA TURNER [address] Discharge instructions and discharge home medications reviewed with Other facility and a copy given. All questions have been answered and understanding verbalized. The following instructions and handouts were given: Diet, activity, medication list and follow up instructions provided to [facility]. report called to Michelle SIDDIQUI. Discontinued lines and drains: Peripheral IV discontinued and catheter intact. [facility] discharged to [facility] with [facility] via Stretcher
--- NOTE | 2021-08-07 16:35 | NUR ---
Wound/Ostomy Care Wound Type/Assessment: Patient seen per Wound care follow up regarding unstageable PU to coccyx, DFU to left heel, and abrasion to the right elbow. Dressing removed and All wounds cleansed, assessed, measured, and pictured. Patient scheduled to discharge back to facility today. The coccyx wound is measuring larger however the veraflo wound vac has been breaking down the slough and necrotic tissue. The wound still has a very foul odor and is painful at times. The left heel remains slough and eschar covered, but the maceration has improved. Treatment Recommendations/Plan: Cleanse all wounds and pat dry. Skin prep to klaus-wounds. Coccyx- pack with Hydrofera Blue today as patient scheduled to discharge. There is undermining of 5.1 from 12-12, HFB cut into coil and packed to all portions of wound and depth, cover with ABD pad and tape. change every 2-3 days depending on drainage. Left heel- medi-honey gel, Xeroform, ABD pad and wrap with kerlix, will avoid adhesive foam due to drainage and moisture under the silicone border. then apply heel medix. Change every 3 days. Right heel- skin prep and foam for protection and heel medix. Right elbow-skin prep, xeroform gauze, and foam. change every 3 days. Education provided: Pt unable to be educated due to mental status. Offloading surface/device: TQ2H, P500 bed, heel medix boots, purple wedge Recommended Referrals/Tests: Awaiting family decision regarding hospice, but patient to discharge to facility today. Discharge Recommendations for dressings: All dressings applied. No other wounds noted upon complete head to toe assessment. Heel medix on BLE and patient repositioned to the right side using wedge. Bed lowered and alarm in place. We will follow up on Wednesday if patient does not discharge like as planned.
== END 2021-08-07 15:38 | DRG 871 ==
LOC: ER 19:14 → 1 WEST ICU 21:25 → 5 NORTH 07-29 11:20 → 4 NORTH 08-06 23:35
PROVIDERS: ADMIT Internal Medicine; ATTEND Internal Medicine
PROC: 30233N1 Transfusion of Nonautologous Red Blood Cells into Peripheral Vein, Percutaneous Approach (ICD-10-PCS; principal; 2021-07-29)
DX: A41.81 Sepsis due to Enterococcus (principal); L89.154 Pressure ulcer of sacral region, stage 4; E43 Unspecified severe protein-calorie malnutrition; N17.0 Acute kidney failure with tubular necrosis; R65.21 Severe sepsis with septic shock; G93.41 Metabolic encephalopathy; S22.079A Unspecified fracture of T9-T10 vertebra, initial encounter for closed fracture; L97.429 Non-pressure chronic ulcer of left heel and midfoot with unspecified severity; L97.419 Non-pressure chronic ulcer of right heel and midfoot with unspecified severity; N39.0 Urinary tract infection, site not specified; Z66 Do not resuscitate; Z20.822 Contact with and (suspected) exposure to COVID-19; D50.9 Iron deficiency anemia, unspecified; E04.1 Nontoxic single thyroid nodule; E11.42 Type 2 diabetes mellitus with diabetic polyneuropathy; E11.621 Type 2 diabetes mellitus with foot ulcer; F02.80 Dementia in other diseases classified elsewhere, unspecified severity, without behavioral disturbance, psychotic disturbance, mood disturbance, and anxiety; G30.9 Alzheimer's disease, unspecified; I70.0 Atherosclerosis of aorta; K42.9 Umbilical hernia without obstruction or gangrene; K59.00 Constipation, unspecified; L98.419 Non-pressure chronic ulcer of buttock with unspecified severity; M17.0 Bilateral primary osteoarthritis of knee; L89.629 Pressure ulcer of left heel, unspecified stage; L89.619 Pressure ulcer of right heel, unspecified stage; N18.9 Chronic kidney disease, unspecified; E11.22 Type 2 diabetes mellitus with diabetic chronic kidney disease; I13.10 Hypertensive heart and chronic kidney disease without heart failure, with stage 1 through stage 4 chronic kidney disease, or unspecified chronic kidney disease; X58.XXXA Exposure to other specified factors, initial encounter; M41.9 Scoliosis, unspecified; M47.816 Spondylosis without myelopathy or radiculopathy, lumbar region; N28.1 Cyst of kidney, acquired; Z74.01 Bed confinement status; Z79.01 Long term (current) use of anticoagulants; Z86.711 Personal history of pulmonary embolism; Z95.1 Presence of aortocoronary bypass graft; Y93.89 Activity, other specified; Y92.89 Other specified places as the place of occurrence of the external cause; Y99.8 Other external cause status; Z68.22 Body mass index [BMI] 22.0-22.9, adult
CPT/HCPCS: 36415; 36430; 51702; 71250; 74176; 76536; 80048; 80053; 80202; 81001; 82550; 82803; 82962; 83605; 83690; 83735; 83880; 84100; 85007; 85025; 85610; 86140; 86850; 86900; 86901; 86920; 87040; 87077; 87086; 87186; 87426; 93005; 96365; 96366; 96368; J0290; J0696; J0878; J1644; J1815; J2543; J3370; J3475; J7030; J7040; J7050; J7060; J7120; P9016; U0003; 92610-GN; 99285-25; G0378